=== PATIENT | male | born 1945 | race Caucasian/White ===

== ENCOUNTER 2018-02-25 11:27 | Emergency (ER) | payer MEDICARE, BC, SELFPAY ==
[2018-02-25 11:27] VITALS: BP 147/89; PULSE 73; RESP 20; TEMP 36.7; O2SAT 94; BMI 31.8
--- NOTE | 2018-02-25 12:01 | ED.VIS.GEN ---
History of Present Illness Chief Complaint: Other, Pain/Inj Informant: Patient Onset: Days - 2-4 Context: Gradual Onset Timing: Continuous Quality: all over Location: sore/achy Current Severity: Moderate Maximum Severity: Moderate Worsened by: movements Relieved by: fentanyl TDP 25mcg Associated Symptoms: none new Narrative: Patient is in pain management, sees Dr. Riggins in [place], [place], states that he lost 1 of his patches because it washed off and shower, and his pain management doctor will not give him any more until he is seen for his next appointment at the end of this week. He was told that he will have to come to the emergency room. He is here looking for some additional fentanyl pain patches, he cut one in half and now that half is running low and his pain is getting worse. - Past Medical History (1) Chronic pain Status: Chronic (2) coronary artery disease Status: Chronic Comment: status post stent in 10/2013, following with Dr. Levine/ (3) diabetes mellitus type II Status: Chronic (4) hypertension Status: Chronic Past Medical History - Allergies and Home Meds Allergies/Adverse Reactions: Allergies adhesive Allergy (Unknown, Verified 02/25/18 11:30) Unknown PER [employer] choline fenofibrate [From Trilipix] Allergy (Unknown, Verified 02/25/18 11:30) Unknown PER [employer] pregabalin [From Lyrica] Allergy (Unknown, Verified 02/25/18 11:30) Unknown PER [employer] Ksreztd-Gap-Kul Reductase Inhibitor Allergy (Unknown, Verified 02/25/18 11:30) Unknown PER [employer] Sulfa (Sulfonamide Antibiotics) Allergy (Verified 02/25/18 11:30) Itching vancomycin Adverse Reaction (Verified 02/25/18 11:30) Itching Home Medications: Home Medications Medication Instructions Recorded Carvedilol [Coreg] 6.25 mg PO BID 06/14/14 Metformin HCl [Glucophage] 1,000 mg PO BIDCM 06/14/14 Pantoprazole Sodium [Protonix] 40 mg PO DAILY 06/14/14 predniSONE tablet 10 mg PO DAILY 06/14/14 traMADol [Ultram (G)] 50 mg PO BID 06/14/14 Insulin Detemir [Levemir (BKC)] 11 units SC QHS 08/30/14 Meloxicam [Mobic] 15 mg PO DAILY 02/25/17 Acetaminophen/Codeine #3 [Tylenol 1 - 2 tab PO QHS #7 tab 10/08/17 #3 Tablet] Albuterol Inhaler [Ventolin Hfa 1 - 2 puff INHALATION Q4H PRN PRN 10/08/17 (SP)] Albuterol Inhaler [Ventolin Hfa] 1 - 2 puff INHALATION Q4H PRN PRN 10/08/17 #1 inhaler Alendronate Sodium [Fosamax] 70 mg PO DAILY 10/08/17 Benazepril HCl [Lotensin] 20 mg PO DAILY 10/08/17 Cholecalciferol (VIT D3) [Vitamin 1,000 unit PO DAILY 10/08/17 D] Furosemide [Lasix] 20 mg PO DAILY 10/08/17 Guaifenesin/Pseudoephedrne HCl 1 ea PO BID #20 tab.er.12h 10/08/17 [Mucinex D ER 1,200-120 mg Tab] Insulin Lispro [Humalog KwikPen] 5 unit SQ BIDCM 10/08/17 Isosorbide Mononitrate [Isosorbide 30 mg PO DAILY 10/08/17 Mononitrate ER] Lactulose [Lactulose] 15 ml PO BID 10/08/17 Naproxen [Naprosyn] 500 mg PO BID PRN #20 tab 10/08/17 Oseltamivir Phosphate [Tamiflu] 75 mg PO BID #10 cap 10/08/17 Vit A/Vit C/Vit E/Zinc/Copper 1 each PO BID 10/08/17 [Preservision Areds Softgel] fentaNYL patch [Duragesic] 25 mcg TRANSDERM. Q72H 10/08/17 Primary Care Physician: Boom Aviles [Primary Care Provider] - Surgical History: - - rotator cuff repair, hernia repair Smoking Status: Former smoker Drugs: None - Family History Maternal Family History: Reports: No pertinent history Review of Systems All systems negative except as indicated Musculoskeletal: Reports: Myalgias Physical Exam Vital Signs/Narrative: Vital Signs Temp Pulse Resp BP Pulse Ox 02/25/18 11:27 98.0 F 73 20 H 147/89 H 94 General: Well nourished, Well developed Head: Normocephalic, Atraumatic Eyes: Perrl, EOMI ENT: Moist mucous membranes, No rhinorrhea Cardiovascular: Regular rate, Regular rhythm, No murmurs Respiratory: No distress, CTA bilaterally, Chest nontender Skin: Normal color, No rash Neurological: Alert, Oriented x3, Cranial nerves II-XII grossly intact, Normal Strength, Normal Sensation Psychological: Normal affect Diagnostic/Tx/Re-eval - Medical Decision Making Patient agrees that if I am able to get him a single fentanyl patch here in the ER, he thinks that would get him till the weekend to see his doctor. Patient is reasonable. Oars report checked. Nothing concerning other than what he is telling me. We will get him a patch. His old half patch is removed. ED Disposition - Plan for ED Patient: Disposition: Home or Assisted Living Chief Complaint: Other, Pain/Inj Diagnosis: Chronic pain Instructions: Medication for Pain Referrals: Boom Aviles [Primary Care Provider] - doctor, pain [Other] (as scheduled on Sunday)
--- NOTE | 2018-02-25 12:07 | ED.DCSUM_ITS ---
History of Present Illness Chief Complaint: Other, Pain/Inj Informant: Patient Onset: Days - 2-4 Context: Gradual Onset Timing: Continuous Quality: all over Location: sore/achy Current Severity: Moderate Maximum Severity: Moderate Worsened by: movements Relieved by: fentanyl TDP 25mcg Associated Symptoms: none new Narrative: Patient is in pain management, sees Dr. Riggins in [place], [place], states that he lost 1 of his patches because it washed off and shower, and his pain management doctor will not give him any more until he is seen for his next appointment at the end of this week. He was told that he will have to come to the emergency room. He is here looking for some additional fentanyl pain patches, he cut one in half and now that half is running low and his pain is getting worse. - Past Medical History (1) Chronic pain Status: Chronic (2) coronary artery disease Status: Chronic Comment: status post stent in 10/2013, following with Dr. Levine / (3) diabetes mellitus type II Status: Chronic (4) hypertension Status: Chronic Past Medical History - Allergies and Home Meds Allergies/Adverse Reactions: Allergies adhesive Allergy (Unknown, Verified 02/25/18 11:30) Unknown PER [employer] choline fenofibrate [From Trilipix] Allergy (Unknown, Verified 02/25/18 11:30) Unknown PER [employer] pregabalin [From Lyrica] Allergy (Unknown, Verified 02/25/18 11:30) Unknown PER [employer] Npmsigg-Eqs-Wfu Reductase Inhibitor Allergy (Unknown, Verified 02/25/18 11:30) Unknown PER [employer] Sulfa (Sulfonamide Antibiotics) Allergy (Verified 02/25/18 11:30) Itching vancomycin Adverse Reaction (Verified 02/25/18 11:30) Itching Home Medications: Home Medications Medication Instructions Recorded Carvedilol [Coreg] 6.25 mg PO BID 06/14/14 Metformin HCl [Glucophage] 1,000 mg PO BIDCM 06/14/14 Pantoprazole Sodium [Protonix] 40 mg PO DAILY 06/14/14 predniSONE tablet 10 mg PO DAILY 06/14/14 traMADol [Ultram (G)] 50 mg PO BID 06/14/14 Insulin Detemir [Levemir (BKC)] 11 units SC QHS 08/30/14 Meloxicam [Mobic] 15 mg PO DAILY 02/25/17 Acetaminophen/Codeine #3 [Tylenol 1 - 2 tab PO QHS #7 tab 10/08/17 #3 Tablet] Albuterol Inhaler [Ventolin Hfa 1 - 2 puff INHALATION Q4H PRN PRN 10/08/17 (SP)] Albuterol Inhaler [Ventolin Hfa] 1 - 2 puff INHALATION Q4H PRN PRN 10/08/17 #1 inhaler Alendronate Sodium [Fosamax] 70 mg PO DAILY 10/08/17 Benazepril HCl [Lotensin] 20 mg PO DAILY 10/08/17 Cholecalciferol (VIT D3) [Vitamin 1,000 unit PO DAILY 10/08/17 D] Furosemide [Lasix] 20 mg PO DAILY 10/08/17 Guaifenesin/Pseudoephedrne HCl 1 ea PO BID #20 tab.er.12h 10/08/17 [Mucinex D ER 1,200-120 mg Tab] Insulin Lispro [Humalog KwikPen] 5 unit SQ BIDCM 10/08/17 Isosorbide Mononitrate [Isosorbide 30 mg PO DAILY 10/08/17 Mononitrate ER] Lactulose [Lactulose] 15 ml PO BID 10/08/17 Naproxen [Naprosyn] 500 mg PO BID PRN #20 tab 10/08/17 Oseltamivir Phosphate [Tamiflu] 75 mg PO BID #10 cap 10/08/17 Vit A/Vit C/Vit E/Zinc/Copper 1 each PO BID 10/08/17 [Preservision Areds Softgel] fentaNYL patch [Duragesic] 25 mcg TRANSDERM. Q72H 10/08/17 Primary Care Physician: Boom Aviles [Primary Care Provider] - Surgical History: - - rotator cuff repair, hernia repair Smoking Status: Former smoker Drugs: None - Family History Maternal Family History: Reports: No pertinent history Review of Systems All systems negative except as indicated Musculoskeletal: Reports: Myalgias Physical Exam Vital Signs/Narrative: Vital Signs Temp Pulse Resp BP Pulse Ox 02/25/18 11:27 98.0 F 73 20 H 147/89 H 94 General: Well nourished, Well developed Head: Normocephalic, Atraumatic Eyes: Perrl, EOMI ENT: Moist mucous membranes, No rhinorrhea Cardiovascular: Regular rate, Regular rhythm, No murmurs Respiratory: No distress, CTA bilaterally, Chest nontender Skin: Normal color, No rash Neurological: Alert, Oriented x3, Cranial nerves II-XII grossly intact, Normal Strength, Normal Sensation Psychological: Normal affect Diagnostic/Tx/Re-eval - Medical Decision Making Patient agrees that if I am able to get him a single fentanyl patch here in the ER, he thinks that would get him till the weekend to see his doctor. Patient is reasonable. Oars report checked. Nothing concerning other than what he is telling me. We will get him a patch. His old half patch is removed. ED Disposition - Plan for ED Patient: Disposition: Home or Assisted Living Chief Complaint: Other, Pain/Inj Diagnosis: Chronic pain Instructions: Medication for Pain Referrals: Boom Aviles [Primary Care Provider] - doctor, pain [Other] (as scheduled on Sunday)
[2018-02-25] MEDS: fentaNYL 25 MCG Patch TRANSDERM. (12:48)
[2018-02-25 12:54] VITALS: BP 145/67; PULSE 81; RESP 18; O2SAT 96
== END 2018-02-25 12:55 | disposition home or self-care (01) ==
LOC: ED 12:22
PROVIDERS: Emergency Provider Emergency Medicine; Family Provider Family Medicine; PCP Family Medicine
DX: G89.29 Other chronic pain (principal); I25.10 Atherosclerotic heart disease of native coronary artery without angina pectoris; E11.9 Type 2 diabetes mellitus without complications; I10 Essential (primary) hypertension; Z95.5 Presence of coronary angioplasty implant and graft; Z79.4 Long term (current) use of insulin; Z79.51 Long term (current) use of inhaled steroids; Z79.52 Long term (current) use of systemic steroids; Z79.891 Long term (current) use of opiate analgesic; Z79.899 Other long term (current) drug therapy; Z87.891 Personal history of nicotine dependence
CPT/HCPCS: 99283

== ENCOUNTER 2018-02-27 08:07 | Observation (INO) | payer MEDICARE, BC, SELFPAY ==
[2018-02-27] VITALS (13 sets, daily range): BP systolic 136–164; BP diastolic 69–95; PULSE 65–86; RESP 12–21; TEMP 36.3–37.1; O2SAT 93–98; BMI 31.2; BMI 31.6
--- NOTE | 2018-02-27 08:23 | NURSING ---
NO LW OR POA
--- NOTE | 2018-02-27 08:24 | EKG12_ITS ---
Test Reason : CP Blood Pressure : / mmHG Vent. Rate : 067 BPM Atrial Rate : 067 BPM P-R Int : 178 ms QRS Dur : 084 ms QT Int : 368 ms P-R-T Axes : 038 -52 070 degrees QTc Int : 388 ms Normal sinus rhythm Left anterior fascicular block Inferior infarct , age undetermined T wave abnormality, consider lateral ischemia Abnormal ECG Confirmed by ELIZ VILLAGRAN MD ([id number]), staff editor BRAXTON COLLIER ([id number]) on 03/01/2018 2:06:10 PM Referred By: CHASE Confirmed By:ELIZ VILLAGRAN MD
--- NOTE | 2018-02-27 08:27 | ED.VIS.GEN ---
History of Present Illness Chief Complaint: Chest Pain Informant: Patient Onset: Yesterday Context: Gradual Onset Timing: Intermittent Quality: heaviness Location: substernal Current Severity: Mild Maximum Severity: Moderate Worsened by: lying flat Relieved by: sitting or standing Associated Symptoms: sob/orthopnea, diaphoretic last night, exac of pain all over (mostly exts) Narrative: Patient was here 2 days ago, seen by myself because of worsening chronic pain and no other complaints, he was given fentanyl transdermal patch, he states he has been wearing it, but his diffuse myalgias seem to be worsening. He states he did not have these problems when he was here 2 days ago, but last night he developed orthopnea, diaphoresis, chest pressure, symptoms have persisted until today. They are better when he stands up or sits up. He states that the trouble breathing and chest discomfort are intermittent for a long time, and he cannot quantify how long exactly it is been going on for total, how often he gets it, or how long the episodes last. He can tell me that he does not get episodes daily. He states that the symptoms he has had since last night are unusual. He takes a water pill, he does not know why except for swelling in his legs. He is on Eliquis and he does not know why, but then he mentions that he was admitted to [facility] for rapid atrial fibrillation at one time. Says he lives in [place] and sees a Dr. Levine for cardiology. Has not seen him in the past 6 months. - Past Medical History (1) Chronic pain Status: Chronic (2) coronary artery disease Status: Chronic Comment: status post stent in 10/2013, following with Dr. Levine/ (3) diabetes mellitus type II Status: Chronic (4) hypertension Status: Chronic (5) Paroxysmal atrial fibrillation Status: Chronic Past Medical History - Allergies and Home Meds Allergies/Adverse Reactions: Allergies adhesive Allergy (Unknown, Verified 02/27/18 08:12) Unknown PER [employer] choline fenofibrate [From Trilipix] Allergy (Unknown, Verified 02/27/18 08:12) Unknown PER [employer] pregabalin [From Lyrica] Allergy (Unknown, Verified 02/27/18 08:12) Unknown PER [employer] Ezfxosc-Fkd-Mes Reductase Inhibitor Allergy (Unknown, Verified 02/27/18 08:12) Unknown PER [employer] Sulfa (Sulfonamide Antibiotics) Allergy (Verified 02/27/18 08:12) Itching vancomycin Allergy (Verified 02/27/18 08:12) Itching Home Medications: Home Medications Medication Instructions Recorded Carvedilol [Coreg] 6.25 mg PO BID 06/14/14 Pantoprazole Sodium [Protonix] 40 mg PO DAILY 06/14/14 predniSONE tablet 10 mg PO DAILY 06/14/14 traMADol [Ultram (G)] 50 mg PO Q6H PRN PRN 06/14/14 Insulin Detemir [Levemir (BKC)] 6 units SC QHS 08/30/14 Albuterol Inhaler [Ventolin Hfa] 1 - 2 puff INHALATION Q4H PRN PRN 10/08/17 #1 inhaler Alendronate Sodium [Fosamax] 70 mg PO QODAY 10/08/17 Benazepril HCl [Lotensin] 20 mg PO DAILY 10/08/17 Cholecalciferol (VIT D3) [Vitamin 1,000 unit PO DAILY 10/08/17 D] Furosemide [Lasix] 20 mg PO DAILY 10/08/17 Insulin Lispro [Humalog KwikPen] 5 unit SQ BIDCM 10/08/17 Isosorbide Mononitrate [Isosorbide 30 mg PO DAILY 10/08/17 Mononitrate ER] Lactulose [Lactulose] 15 ml PO BID 10/08/17 Vit A/Vit C/Vit E/Zinc/Copper 1 each PO BID 10/08/17 [Preservision Areds Softgel] fentaNYL patch [Duragesic] 25 mcg TRANSDERM. Q72H 10/08/17 Apixaban [Eliquis] 5 mg PO BID 02/25/18 Surgical History: - - rotator cuff repair, hernia repair Lives: Alone Smoking Status: Former smoker Drugs: None - Family History Maternal Family History: Reports: No pertinent history Review of Systems General: Reports: Malaise, Sweats. Denies: Fever Eyes: Denies: Visual changes - bilaterally, Diplopia ENT: Denies: Bilateral ear pain, Rhinorrhea, Sore throat Cardiovascular: Reports: Chest pain. Denies: Palpitations, Heart racing Respiratory: Reports: Dyspnea, Orthopnea, Paroxysmal nocturnal dyspnea. Denies: Cough, Dyspnea on exertion Gastrointestinal: Reports: Abdominal pain - chronic, no changes, Hematochezia - off and on. Denies: Nausea, Vomiting, Diarrhea, Melena Genitourinary: Denies: Dysuria, Hematuria Musculoskeletal: Reports: Myalgias. Denies: Arthralgias, Neck pain, Back pain Skin: Denies: Rash, Abscess Neurological: Denies: Headache, Weakness, Parasthesia Psych: Denies: Depression, Anxiety, Suicidal thoughts Endocrine: Denies: Polyuria, Polydipsia Hematologic: Reports: Easy bruising, Easy bleeding Allergy: Denies: Swelling of the mouth, Swelling of the tongue Physical Exam Vital Signs/Narrative: Vital Signs Temp Pulse Resp BP Pulse Ox 02/27/18 08:08 97.3 F L 71 12 141/81 H 94 General: Well nourished, Well developed, Obese - trunkal Head: Normocephalic, Atraumatic Eyes: Perrl, EOMI ENT: Moist mucous membranes, No rhinorrhea Neck: Supple, Nontender, No JVD Cardiovascular: Regular rate, Regular rhythm, Murmur - 3/6 systolic. Negative for: Tachycardia Respiratory: No distress, CTA bilaterally - diffusely diminished, symmetrically, Chest nontender Abdomen: Soft, Nontender, Nondistended, Normal bowel sounds Back: Nontender, Normal Inspection Extremities: Nontender, No edema Skin: Normal color, No rash Neurological: Alert, Oriented x3, Cranial nerves II-XII grossly intact, Normal Strength, Normal Sensation, Normal Gait Psychological: Normal affect Diagnostic/Tx/Re-eval Impressions Chest X-Ray 02/27/18 08:54 IMPRESSION: No acute abnormality is seen. Electronically Signed: Raghav Mark MD at 9:23 EDT Tel [phone], Service support , 02/27/18 08:54 Chest PA and Lateral [RAD] Stat Laboratory Results 02/27/18 02/27/18 02/27/18 Range/Units 08:35 08:35 08:35 WBC 12.1 H (4.4-11.0) K/mm3 RBC 4.47 L (4.6-6.2) M/mm3 Hgb 13.0 (13.0-16.5) g/dl Hct 38.5 L (40-54) % MCV 86.1 (80-94) fL MCH 29.1 (27.0-32.0) pg MCHC 33.8 (32-36) g/gl RDW 13.9 (11.6-14.6) % RDW Differential 42.9 (35.1-43.9) fl Plt Count 235 (150-450) K/mm3 MPV 8.9 (6.2-12.0) fl Immature Gran % (Auto) 1.200 H (0.0-0.9) % Neut % (Auto) 79.0 H (47-70) % Lymph % (Auto) 10.1 L (19-41) % [place] % (Auto) 8.3 (0-10) % Eos % (Auto) 1.2 (0-5) % Baso % (Auto) 0.2 (0-1) % Absolute Neuts (auto) 9.5 H (2.0-7.7) X10^3/uL Absolute Lymphs (auto) 1.22 (0.83-4.51) X10^3/ul Total Counted Not Reportable Sodium 141 (136-145) mmol/L Potassium 4.2 (3.5-5.1) mmol/L Chloride 106 (98-107) mmol/L Carbon Dioxide 26.0 (21.0-32.0) mmol/L Anion Gap 9 (5-15) BUN 25 H (7-18) mg/dL Creatinine 1.33 H (0.70-1.30) mg/dL Estim Creat Clear Calc 40.41 ml/min Est GFR (MDRD) Af Amer 68 (>60) mL/min Est GFR (MDRD) Non-Af 56 L (>60) mL/min BUN/Creatinine Ratio 18.8 (10-20) RATIO Glucose 256 H (74-106) mg/dL Calcium 8.8 (8.5-10.1) mg/dL Troponin I < 0.015 (<0.045) ng/mL B-Natriuretic Peptide 68.6 (0-100) pg/mL - Rhythm Strip Rhythm Strip: Sinus Rhythm Rate: 65 Ectopy: None - EKG 1 Interpretation: Sinus Rhythm, No Acute Injury Pattern, LAFB, Non-Specific ST Changes - laterally w/ some T-wave inversions V4-6 Prior: Changed - T-wave inversions new c/w 09/2017; LAFB not new - Medical Decision Making Sitting at rest, patient's symptoms gradually resolved without the need for nitroglycerin. Aspirin was held since he is anticoagulated. Since he does not take aspirin daily, only because he is anticoagulated I assume, his MARGARET risk score is 2. It would be 3 if he was taking aspirin daily. He does not recall his last stress test, there is none available in the system. Has a hx of a coronary stent; his current coronary status is unknown. Plan is for admission for further evaluation. ED Disposition - Plan for ED Patient: Disposition: Acute Care Hospital [facility] Chief Complaint: Chest Pain Diagnosis: Chest pain
--- NOTE | 2018-02-27 08:37 | ED.DCSUM_ITS ---
History of Present Illness Chief Complaint: Chest Pain Informant: Patient Onset: Yesterday Context: Gradual Onset Timing: Intermittent Quality: heaviness Location: substernal Current Severity: Mild Maximum Severity: Moderate Worsened by: lying flat Relieved by: sitting or standing Associated Symptoms: sob/orthopnea, diaphoretic last night, exac of pain all over (mostly exts) Narrative: Patient was here 2 days ago, seen by myself because of worsening chronic pain and no other complaints, he was given fentanyl transdermal patch, he states he has been wearing it, but his diffuse myalgias seem to be worsening. He states he did not have these problems when he was here 2 days ago, but last night he developed orthopnea, diaphoresis, chest pressure, symptoms have persisted until today. They are better when he stands up or sits up. He states that the trouble breathing and chest discomfort are intermittent for a long time, and he cannot quantify how long exactly it is been going on for total, how often he gets it, or how long the episodes last. He can tell me that he does not get episodes daily. He states that the symptoms he has had since last night are unusual. He takes a water pill, he does not know why except for swelling in his legs. He is on Eliquis and he does not know why, but then he mentions that he was admitted to [facility] for rapid atrial fibrillation at one time. Says he lives in [place] and sees a Dr. Levine for cardiology. Has not seen him in the past 6 months. - Past Medical History (1) Chronic pain Status: Chronic (2) coronary artery disease Status: Chronic Comment: status post stent in 10/2013, following with Dr. Levine / (3) diabetes mellitus type II Status: Chronic (4) hypertension Status: Chronic (5) Paroxysmal atrial fibrillation Status: Chronic Past Medical History - Allergies and Home Meds Allergies/Adverse Reactions: Allergies adhesive Allergy (Unknown, Verified 02/27/18 08:12) Unknown [facility] choline fenofibrate [From Trilipix] Allergy (Unknown, Verified 02/27/18 08:12) Unknown [facility] pregabalin [From Lyrica] Allergy (Unknown, Verified 02/27/18 08:12) Unknown [facility] Frtkano-Tkd-Suv Reductase Inhibitor Allergy (Unknown, Verified 02/27/18 08:12) Unknown [facility] Sulfa (Sulfonamide Antibiotics) Allergy (Verified 02/27/18 08:12) Itching vancomycin Allergy (Verified 02/27/18 08:12) Itching Home Medications: Home Medications Medication Instructions Recorded Carvedilol [Coreg] 6.25 mg PO BID 06/14/14 Pantoprazole Sodium [Protonix] 40 mg PO DAILY 06/14/14 predniSONE tablet 10 mg PO DAILY 06/14/14 traMADol [Ultram (G)] 50 mg PO Q6H PRN PRN 06/14/14 Insulin Detemir [Levemir (BKC)] 6 units SC QHS 08/30/14 Albuterol Inhaler [Ventolin Hfa] 1 - 2 puff INHALATION Q4H PRN PRN 10/08/17 #1 inhaler Alendronate Sodium [Fosamax] 70 mg PO QODAY 10/08/17 Benazepril HCl [Lotensin] 20 mg PO DAILY 10/08/17 Cholecalciferol (VIT D3) [Vitamin 1,000 unit PO DAILY 10/08/17 D] Furosemide [Lasix] 20 mg PO DAILY 10/08/17 Insulin Lispro [Humalog KwikPen] 5 unit SQ BIDCM 10/08/17 Isosorbide Mononitrate [Isosorbide 30 mg PO DAILY 10/08/17 Mononitrate ER] Lactulose [Lactulose] 15 ml PO BID 10/08/17 Vit A/Vit C/Vit E/Zinc/Copper 1 each PO BID 10/08/17 [Preservision Areds Softgel] fentaNYL patch [Duragesic] 25 mcg TRANSDERM. Q72H 10/08/17 Apixaban [Eliquis] 5 mg PO BID 02/25/18 Surgical History: - - rotator cuff repair, hernia repair Lives: Alone Smoking Status: Former smoker Drugs: None - Family History Maternal Family History: Reports: No pertinent history Review of Systems General: Reports: Malaise, Sweats. Denies: Fever Eyes: Denies: Visual changes - bilaterally, Diplopia ENT: Denies: Bilateral ear pain, Rhinorrhea, Sore throat Cardiovascular: Reports: Chest pain. Denies: Palpitations, Heart racing Respiratory: Reports: Dyspnea, Orthopnea, Paroxysmal nocturnal dyspnea. Denies : Cough, Dyspnea on exertion Gastrointestinal: Reports: Abdominal pain - chronic, no changes, Hematochezia - off and on. Denies: Nausea, Vomiting, Diarrhea, Melena Genitourinary: Denies: Dysuria, Hematuria Musculoskeletal: Reports: Myalgias. Denies: Arthralgias, Neck pain, Back pain Skin: Denies: Rash, Abscess Neurological: Denies: Headache, Weakness, Parasthesia Psych: Denies: Depression, Anxiety, Suicidal thoughts Endocrine: Denies: Polyuria, Polydipsia Hematologic: Reports: Easy bruising, Easy bleeding Allergy: Denies: Swelling of the mouth, Swelling of the tongue Physical Exam Vital Signs/Narrative: Vital Signs Temp Pulse Resp BP Pulse Ox 02/27/18 08:08 97.3 F L 71 12 141/81 H 94 General: Well nourished, Well developed, Obese - trunkal Head: Normocephalic, Atraumatic Eyes: Perrl, EOMI ENT: Moist mucous membranes, No rhinorrhea Neck: Supple, Nontender, No JVD Cardiovascular: Regular rate, Regular rhythm, Murmur - 3/6 systolic. Negative for: Tachycardia Respiratory: No distress, CTA bilaterally - diffusely diminished, symmetrically , Chest nontender Abdomen: Soft, Nontender, Nondistended, Normal bowel sounds Back: Nontender, Normal Inspection Extremities: Nontender, No edema Skin: Normal color, No rash Neurological: Alert, Oriented x3, Cranial nerves II-XII grossly intact, Normal Strength, Normal Sensation, Normal Gait Psychological: Normal affect Diagnostic/Tx/Re-eval Impressions Chest X-Ray 02/27/18 08:54 IMPRESSION: No acute abnormality is seen. Electronically Signed: Raghav Mark MD at 9:23 EDT Tel [phone], Service support , 02/27/18 08:54 Chest PA and Lateral [RAD] Stat Laboratory Results 02/27/18 02/27/18 02/27/18 Range/Units 08:35 08:35 08:35 WBC 12.1 H (4.4-11.0) K/mm3 RBC 4.47 L (4.6-6.2) M/mm3 Hgb 13.0 (13.0-16.5) g/dl Hct 38.5 L (40-54) % MCV 86.1 (80-94) fL MCH 29.1 (27.0-32.0) pg MCHC 33.8 (32-36) g/gl RDW 13.9 (11.6-14.6) % RDW Differential 42.9 (35.1-43.9) fl Plt Count 235 (150-450) K/mm3 MPV 8.9 (6.2-12.0) fl Immature Gran % (Auto) 1.200 H (0.0-0.9) % Neut % (Auto) 79.0 H (47-70) % Lymph % (Auto) 10.1 L (19-41) % [place] % (Auto) 8.3 (0-10) % Eos % (Auto) 1.2 (0-5) % Baso % (Auto) 0.2 (0-1) % Absolute Neuts (auto) 9.5 H (2.0-7.7) X10^3/uL Absolute Lymphs (auto) 1.22 (0.83-4.51) X10^3/ul Total Counted Not Reportable Sodium 141 (136-145) mmol/L Potassium 4.2 (3.5-5.1) mmol/L Chloride 106 (98-107) mmol/L Carbon Dioxide 26.0 (21.0-32.0) mmol/L Anion Gap 9 (5-15) BUN 25 H (7-18) mg/dL Creatinine 1.33 H (0.70-1.30) mg/dL Estim Creat Clear Calc 40.41 ml/min Est GFR (MDRD) Af Amer 68 (>60) mL/min Est GFR (MDRD) Non-Af 56 L (>60) mL/min BUN/Creatinine Ratio 18.8 (10-20) RATIO Glucose 256 H (74-106) mg/dL Calcium 8.8 (8.5-10.1) mg/dL Troponin I < 0.015 (<0.045) ng/mL B-Natriuretic Peptide 68.6 (0-100) pg/mL - Rhythm Strip Rhythm Strip: Sinus Rhythm Rate: 65 Ectopy: None - EKG 1 Interpretation: Sinus Rhythm, No Acute Injury Pattern, LAFB, Non-Specific ST Changes - laterally w/ some T-wave inversions V4-6 Prior: Changed - T-wave inversions new c/w 09/2017; LAFB not new - Medical Decision Making Sitting at rest, patient's symptoms gradually resolved without the need for nitroglycerin. Aspirin was held since he is anticoagulated. Since he does not take aspirin daily, only because he is anticoagulated I assume, his MARGARET risk score is 2. It would be 3 if he was taking aspirin daily. He does not recall his last stress test, there is none available in the system. Has a hx of a coronary stent; his current coronary status is unknown. Plan is for admission for further evaluation. ED Disposition - Plan for ED Patient: Disposition: Acute Care [facility] Chief Complaint: Chest Pain Diagnosis: Chest pain
[2018-02-27 08:47] LABS: Absolute Lymphocyte Count 1.22 X10^3/ul (0.83-4.51); Absolute Neutrophil Count 9.5 X10^3/uL (2.0-7.7); Basophil# 0.03 X10^3/uL; Basophil% 0.2 % (0-1); Eosinophil# 0.14 X10^3/uL; Eosinophils% 1.2 % (0-5); Hematocrit 38.5 % (40-54); Lymphocyte # 1.22 X10^3/ul (4.0); Lymphocyte % 10.1 % (19-41); Mean Corp Hgb Conc 33.8 g/gl (32-36); Mean Corpuscular Hgb 29.1 pg (27.0-32.0); Mean Corpuscular Volume 86.1 fL (80-94); Mean Platelet Vol. 8.9 fl (6.2-12.0); Monocyte% 8.3 % (0-10); Neutrophil # 9.52 X10^3/uL (2.7-7.7); Platelet Count 235 K/mm3 (150-450); RBC Distribution Width CV 13.9 % (11.6-14.6); RBC Distribution Width SD 42.9 fl (35.1-43.9); Red Blood Count 4.47 M/mm3 (4.6-6.2); White Blood Count 12.1 K/mm3 (4.4-11.0)
[2018-02-27 08:50] LABS: POSITIVE COUNT NO; POSITIVE DIFFERENTIAL NO; POSITIVE MORPHOLOGY NO
--- NOTE | 2018-02-27 08:54 | RAD_ITS ---
STUDY: X-RAY CHEST REASON FOR EXAM: Male, 72 years old. Chest pain. Shortness of breath. TECHNIQUE: PA and lateral views of the chest. COMPARISON: Comparison is made with prior study dated October 08, 2017. FINDINGS: EKG electrodes are seen. Stable mild increased markings at the left lung base suggestive of left basilar atelectasis. There is no demonstrated pleural abnormality. Normal size heart. Normal mediastinum and gracie. Normal visualized pulmonary arteries. There is atherosclerotic tortuosity of the aortic arch and descending thoracic aorta. There are degenerative changes of the visualized thoracic spine. Fusion of the lower cervical spine. Normal visualized ribs, clavicles, and shoulders. There is no demonstrated abnormality of the visualized soft tissue structures of the upper abdomen. RAD/Chest PA and Lateral IMPRESSION: No acute abnormality is seen. Electronically Signed: Raghav Mark MD at 9:23 EDT Tel [phone], Service support ,
[2018-02-27 09:05] LABS: Anion Gap 9 (5-15); BUN 25 mg/dL (7-18); BUN/Creat Ratio 18.8 RATIO (10-20); Calcium,Total 8.8 mg/dL (8.5-10.1); Chloride 106 mmol/L (98-107); Creatinine, Serum 1.33 mg/dL (0.70-1.30); EST Glomerular Filtration Rate 56 mL/min (>60); Est Glom Filt Rate - Afr Amer 68 mL/min (>60); Estimated Creatinine Clearance 40.41 ml/min; Glucose 256 mg/dL (74-106); Potassium 4.2 mmol/L (3.5-5.1); Sodium Level 141 mmol/L (136-145)
[2018-02-27 09:21] LABS: BNP,B-Type NATRIURETIC PEPTIDE 68.6 pg/mL (0-100)
[2018-02-27] MEDS: Morphine 4 MG/ML Syringe IV (10:34)
--- NOTE | 2018-02-27 10:35 | NURSING ---
PAGED DR ACUÑA'S PAGER ABOUT GETTING A HOSPITALIST TO ADMIT PATIENT.
--- NOTE | 2018-02-27 10:44 | NURSING ---
DR MAJOR FOR DR STONE
[2018-02-27 11:54] LABS: International Normalized Ratio 1.2; Prothrombin Time (Protime)PT. 15.2 SECONDS (11.7-14.9)
--- NOTE | 2018-02-27 12:10 | PCM.HP.STD ---
Problem List (1) Chronic back pain Status: Chronic (2) Chronic pain syndrome Status: Chronic (3) Paroxysmal atrial fibrillation Status: Chronic (4) hypertension Status: Chronic (5) diabetes mellitus type II Status: Chronic (6) coronary artery disease Status: Chronic Comment: status post stent in 10/2013, following with Dr. Levine/ History of Present Illness Date of Admission: 02/27/18 Chief Complaint: Acute on chronic low back pain, intermittent chest pain. The patient is a 72 year old M with past medical history as mentioned above presented to the emergency room because of acute on chronic low back pain as well as intermittent chest pain. His main presenting complaint was low back pain that has been worsening over the last couple of weeks, mid low back pain, dull aching pain, constant, 6-8 out of 10 in severity, not radiating, associated with a chronic tingling on the left lower extremity and without aggravating or relieving factors. He does have chronic back pain and he has been on fentanyl patch as well as tramadol for long time but he ran out of fentanyl patch the last few days. He denied mechanical fall or trauma. 2 days ago, he came to the emergency room with main complaint of low back pain, was evaluated and was given a prescription for fentanyl patch and recommended to follow-up with his pain management doctor. He will not be able to see his pain management doctor until this coming Sunday. Also, he complained of intermittent chest pain that has been going on for couple of months, dull aching pain, retrosternal, described as chest heaviness, not radiating, 4-5 out of 10 in severity, comes and goes, associated with exertional shortness of breath and without aggravating or relieving factors. He denied syncope or presyncope. He denied palpitation, dizziness or lightheadedness. In the emergency department, his vital signs were stable. His routine blood work is remarkable for minimal leukocytosis and creatinine of 1.33. His troponin is negative. EKG revealed normal sinus rhythm with minimal T-wave inversion in V4, V5 and V6 and those are new changes compared to EKG from September,. Chest x-ray showed no acute infiltrate, consolidation or effusion. He is being admitted for atypical chest pain for evaluation as well as acute and chronic low back pain. Past Medical History Past Medical History (Chronic Problems): Chronic Problems Chronic back pain (Chronic) Chronic pain syndrome (Chronic) Chronic pain (Chronic) Paroxysmal atrial fibrillation (Chronic) hypertension (Chronic) diabetes mellitus type II (Chronic) coronary artery disease (Chronic) status post stent in 10/2013, following with Dr. Levine/ Allergies adhesive Allergy (Unknown, Verified 02/27/18 08:12) Unknown PER [facility] choline fenofibrate [From Trilipix] Allergy (Unknown, Verified 02/27/18 08:12) Unknown [facility] pregabalin [From Lyrica] Allergy (Unknown, Verified 02/27/18 08:12) Unknown [facility] Bnassip-Mav-Wck Reductase Inhibitor Allergy (Unknown, Verified 02/27/18 08:12) Unknown [facility] Sulfa (Sulfonamide Antibiotics) Allergy (Verified 02/27/18 08:12) Itching vancomycin Allergy (Verified 02/27/18 08:12) Itching Home Medications: Ambulatory Orders Medication Instructions Recorded Carvedilol [Coreg] 6.25 mg PO BID 06/14/14 Pantoprazole Sodium [Protonix] 40 mg PO DAILY 06/14/14 predniSONE tablet 10 mg PO DAILY 06/14/14 traMADol [Ultram (G)] 50 mg PO Q6H PRN PRN 06/14/14 Insulin Detemir [Levemir (BKC)] 34 units SC QHS 08/30/14 Albuterol Inhaler [Ventolin Hfa] 1 - 2 puff INHALATION Q4H PRN PRN 10/08/17 #1 inhaler Alendronate Sodium [Fosamax] 70 mg PO QWEEK 10/08/17 Benazepril HCl [Lotensin] 20 mg PO DAILY 10/08/17 Cholecalciferol (VIT D3) [Vitamin 1,000 unit PO DAILY 10/08/17 D] Furosemide [Lasix] 20 mg PO DAILY 10/08/17 Insulin Lispro [Humalog KwikPen] 26 unit SQ TIDCM 10/08/17 Isosorbide Mononitrate [Isosorbide 30 mg PO DAILY 10/08/17 Mononitrate ER] Lactulose [Lactulose] 15 ml PO BID 10/08/17 fentaNYL patch [Duragesic] 25 mcg TRANSDERM. Q72H 10/08/17 Apixaban [Eliquis] 5 mg PO BID 02/25/18 Surgical History: herniorrhaphy, - - rotator cuff repair, hernia repair. Lives: Alone Smoking Status: Former smoker Alcohol: None Drugs: None - *Family History Maternal History Items: No pertinent history Review of Systems Constitutional: Denies: Anorexia, Chills, Fever, Weakness Eyes: Denies: Blurred vision, Double vision, Drainage, Redness HEENT: Denies: Difficulty Hearing, Ear Pain, Eye Pain, Nasal Congestion, Sore Throat Cardiovascular: Reports: Chest Pain, Chest Tightness. Denies: Heaviness, Light Headedness, Orthopnea, Paroxysmal Noc. Dyspnea, Syncope Respiratory: Reports: Cough, Shortness of breath upon exertion. Denies: Pleuritic Pain, Sputum production, Wheezing Gastrointestinal: Denies: Abdominal Pain, Constipation, Diarrhea, Nausea, Vomiting Genitourinary: Denies: Dysuria, Frequency, Hematuria Musculoskeletal: Reports: Back Pain, Leg Pain. Denies: Arm Pain, Foot Pain Skin: Denies: Dryness, Rash Neurological: Reports: Tingling. Denies: Balance problems, Double vision, Change in Speech, Slurred speech, Focal weakness, Headaches, Incoordination Psychiatric: Denies: Anxiety, Depression Endocrine: Denies: Change in Body Habitus, Polydipsia VTE Information - Inpt Only VTE Present on Admission: No VTE Mechan Device Prophylaxis: None VTE Pharm Prophylaxis ordered?: No - Physical Exam General: Alert, Oriented x3, Cooperative, No apparent distress HEENT: Atraumatic, PERRLA, EOMI Oral: Moist Mucosa, No Gingival or Mucosal Lesions/ Ulcerations Neck: Supple, No JVD, Negative Carotid Bruits, Trachea Midline, Thyroid Normal Size and Texture Lungs: Clear to auscultation, No rhonchi, No wheeze, No rales, Diminished Cardiovascular: Regular rate, Regular Rhythm, Normal S1, Normal S2, PMI Normal, Murmur - Systolic murmur. Abdomen: Bowel Sounds Present, Soft, Non Tender, Non-Distended, No Hepato-splenomegaly Extremities: No clubbing, No cyanosis, No edema Skin: No rashes, No breakdown Lymphatic: No Cervical, Supraclavicular, or Inguinal Adenopathy Neurological: Cranial nerves II-XII grossly intact, Motor Exam 5/5 strength throughout Psych/Mental Status: Normal Affect, Appropriate, Alert and oriented to time, place, person, mood and affect Vital Signs Temp Pulse Resp BP Pulse Ox 98.2 F 76 16 155/93 H 94 02/27/18 11:33 02/27/18 11:43 02/27/18 11:33 02/27/18 11:33 02/27/18 11:33 Oxygen Delivery Method Room Air Weight: 178 lb 9.191 oz Body Mass Index (BMI) 31.6 Laboratory Tests Past 24 Hrs 02/27/18 11:28 PT 15.2 H INR 1.2 Laboratory Tests 02/27/18 02/27/18 02/27/18 Range/Units 11:53 11:28 08:35 WBC (4.4-11.0) K/mm3 RBC (4.6-6.2) M/mm3 Hgb (13.0-16.5) g/dl Hct (40-54) % MCV (80-94) fL MCH (27.0-32.0) pg MCHC (32-36) g/gl RDW (11.6-14.6) % RDW Differential (35.1-43.9) fl Plt Count (150-450) K/mm3 MPV (6.2-12.0) fl Immature Gran % (Auto) (0.0-0.9) % Neut % (Auto) (47-70) % Lymph % (Auto) (19-41) % [place] % (Auto) (0-10) % Eos % (Auto) (0-5) % Baso % (Auto) (0-1) % Absolute Neuts (auto) (2.0-7.7) X10^3/uL Absolute Lymphs (auto) (0.83-4.51) X10^3/ul Total Counted PT 15.2 H (11.7-14.9) SECONDS INR 1.2 Sodium (136-145) mmol/L Potassium (3.5-5.1) mmol/L Chloride (98-107) mmol/L Carbon Dioxide (21.0-32.0) mmol/L Anion Gap (5-15) BUN (7-18) mg/dL Creatinine (0.70-1.30) mg/dL Estim Creat Clear Calc ml/min Est GFR (MDRD) Af Amer (>60) mL/min Est GFR (MDRD) Non-Af (>60) mL/min BUN/Creatinine Ratio (10-20) RATIO Glucose (74-106) mg/dL Calcium (8.5-10.1) mg/dL Troponin I (<0.045) ng/mL B-Natriuretic Peptide 68.6 (0-100) pg/mL POC Glucose 309 H (70-110) mg/dL 02/27/18 02/27/18 Range/Units 08:35 08:35 WBC 12.1 H (4.4-11.0) K/mm3 RBC 4.47 L (4.6-6.2) M/mm3 Hgb 13.0 (13.0-16.5) g/dl Hct 38.5 L (40-54) % MCV 86.1 (80-94) fL MCH 29.1 (27.0-32.0) pg MCHC 33.8 (32-36) g/gl RDW 13.9 (11.6-14.6) % RDW Differential 42.9 (35.1-43.9) fl Plt Count 235 (150-450) K/mm3 MPV 8.9 (6.2-12.0) fl Immature Gran % (Auto) 1.200 H (0.0-0.9) % Neut % (Auto) 79.0 H (47-70) % Lymph % (Auto) 10.1 L (19-41) % [place] % (Auto) 8.3 (0-10) % Eos % (Auto) 1.2 (0-5) % Baso % (Auto) 0.2 (0-1) % Absolute Neuts (auto) 9.5 H (2.0-7.7) X10^3/uL Absolute Lymphs (auto) 1.22 (0.83-4.51) X10^3/ul Total Counted Not Reportable PT (11.7-14.9) SECONDS INR Sodium 141 (136-145) mmol/L Potassium 4.2 (3.5-5.1) mmol/L Chloride 106 (98-107) mmol/L Carbon Dioxide 26.0 (21.0-32.0) mmol/L Anion Gap 9 (5-15) BUN 25 H (7-18) mg/dL Creatinine 1.33 H (0.70-1.30) mg/dL Estim Creat Clear Calc 40.41 ml/min Est GFR (MDRD) Af Amer 68 (>60) mL/min Est GFR (MDRD) Non-Af 56 L (>60) mL/min BUN/Creatinine Ratio 18.8 (10-20) RATIO Glucose 256 H (74-106) mg/dL Calcium 8.8 (8.5-10.1) mg/dL Troponin I < 0.015 (<0.045) ng/mL B-Natriuretic Peptide (0-100) pg/mL POC Glucose (70-110) mg/dL Clinical Impression(s) from Imaging Studies Chest X-Ray 02/27/18 08:54 IMPRESSION: No acute abnormality is seen. Electronically Signed: Raghav Mark MD at 9:23 EDT Tel [phone], Service support , Assessment/Plan This is a 72 years old male patient presented to the emergency room because of acute on chronic low back pain as well as intermittent chest pain and exertional shortness of breath and is being admitted for evaluation. #1 acute on chronic low back pain: He does have chronic back pain for almost more than 20 years as well as arthritic pain of both legs and chronic tingling of the left lower extremity. He ran out of fentanyl patch few days ago. He denied fall on mechanical trauma. Plan: Admit to PCU for observation, continue fentanyl patch, start OxyIR as needed for pain, continue Toradol as needed, Tylenol as needed, IV fluids, repeat CBC and BMP tomorrow morning, PT OT evaluation and treatment. #2 atypical chest pain: This is intermittent, has been going on for couple of months. It is associated with exertional shortness of breath. He does have history of CAD status post stents. He is not sure when it was his last stress test. EKG revealed T-wave inversion in leads V4, V5 and V6. This is new compared to previous EKG from September,. Chest x-ray showed no acute findings. Plan: Cardiac monitoring, serial cardiac enzymes, repeat EKG tomorrow morning, nitroglycerin sublingual as needed, nuclear stress test tomorrow morning if cardiac enzymes are negative. #3 CAD status post stents: Plan as above, continue Coreg, isosorbide mononitrate and lisinopril. #4 chronic back pain/chronic pain syndrome: Continue prednisone, tramadol, continue fentanyl patch, start OxyIR as needed for pain. #5 paroxysmal A. fib: At this time, his sinus rhythm, continue Coreg for rate control and Eliquis for anti-cognition. #6 type 2 diabetes mellitus: ADA diet, Accu-Cheks, insulin sliding scale, continue home doses of Humalog and Levemir. #7 hypertension: Blood pressure stable, continue home medications. #8 DVT prophylaxis: Continue Eliquis. This note was generated with webme dictation software. It may contain incorrect words, spelling, and punctuation that were not noted in checking the note before signing. Code Visit OBSV E&M: 40186 Initial observation care L3
[2018-02-27 12:11] LABS: Bedside Glucose 309 mg/dL (70-110)
--- NOTE | 2018-02-27 12:17 | HP.PCM_ITS ---
Problem List (1) Chronic back pain Status: Chronic (2) Chronic pain syndrome Status: Chronic (3) Paroxysmal atrial fibrillation Status: Chronic (4) hypertension Status: Chronic (5) diabetes mellitus type II Status: Chronic (6) coronary artery disease Status: Chronic Comment: status post stent in 10/2013, following with Dr. Levine / History of Present Illness Date of Admission: 02/27/18 Chief Complaint: Acute on chronic low back pain, intermittent chest pain. The patient is a 72 year old M with past medical history as mentioned above presented to the emergency room because of acute on chronic low back pain as well as intermittent chest pain. His main presenting complaint was low back pain that has been worsening over the last couple of weeks, mid low back pain, dull aching pain, constant, 6-8 out of 10 in severity, not radiating, associated with a chronic tingling on the left lower extremity and without aggravating or relieving factors. He does have chronic back pain and he has been on fentanyl patch as well as tramadol for long time but he ran out of fentanyl patch the last few days. He denied mechanical fall or trauma. 2 days ago, he came to the emergency room with main complaint of low back pain, was evaluated and was given a prescription for fentanyl patch and recommended to follow-up with his pain management doctor. He will not be able to see his pain management doctor until this coming Sunday. Also, he complained of intermittent chest pain that has been going on for couple of months, dull aching pain, retrosternal, described as chest heaviness, not radiating, 4-5 out of 10 in severity, comes and goes, associated with exertional shortness of breath and without aggravating or relieving factors. He denied syncope or presyncope. He denied palpitation, dizziness or lightheadedness. In the emergency department, his vital signs were stable. His routine blood work is remarkable for minimal leukocytosis and creatinine of 1.33. His troponin is negative. EKG revealed normal sinus rhythm with minimal T-wave inversion in V4 , V5 and V6 and those are new changes compared to EKG from September,. Chest x-ray showed no acute infiltrate, consolidation or effusion. He is being admitted for atypical chest pain for evaluation as well as acute and chronic low back pain. Past Medical History Past Medical History (Chronic Problems): Chronic Problems Chronic back pain (Chronic) Chronic pain syndrome (Chronic) Chronic pain (Chronic) Paroxysmal atrial fibrillation (Chronic) hypertension (Chronic) diabetes mellitus type II (Chronic) coronary artery disease (Chronic) status post stent in 10/2013, following with Dr. Levine/ Allergies adhesive Allergy (Unknown, Verified 02/27/18 08:12) Unknown [facility] choline fenofibrate [From Trilipix] Allergy (Unknown, Verified 02/27/18 08:12) Unknown [facility] pregabalin [From Lyrica] Allergy (Unknown, Verified 02/27/18 08:12) Unknown [facility] Rquuakj-Etc-Tmg Reductase Inhibitor Allergy (Unknown, Verified 02/27/18 08:12) Unknown [facility] Sulfa (Sulfonamide Antibiotics) Allergy (Verified 02/27/18 08:12) Itching vancomycin Allergy (Verified 02/27/18 08:12) Itching Home Medications: Ambulatory Orders Medication Instructions Recorded Carvedilol [Coreg] 6.25 mg PO BID 06/14/14 Pantoprazole Sodium [Protonix] 40 mg PO DAILY 06/14/14 predniSONE tablet 10 mg PO DAILY 06/14/14 traMADol [Ultram (G)] 50 mg PO Q6H PRN PRN 06/14/14 Insulin Detemir [Levemir (BKC)] 34 units SC QHS 08/30/14 Albuterol Inhaler [Ventolin Hfa] 1 - 2 puff INHALATION Q4H PRN PRN 10/08/17 #1 inhaler Alendronate Sodium [Fosamax] 70 mg PO QWEEK 10/08/17 Benazepril HCl [Lotensin] 20 mg PO DAILY 10/08/17 Cholecalciferol (VIT D3) [Vitamin 1,000 unit PO DAILY 10/08/17 D] Furosemide [Lasix] 20 mg PO DAILY 10/08/17 Insulin Lispro [Humalog KwikPen] 26 unit SQ TIDCM 10/08/17 Isosorbide Mononitrate [Isosorbide 30 mg PO DAILY 10/08/17 Mononitrate ER] Lactulose [Lactulose] 15 ml PO BID 10/08/17 fentaNYL patch [Duragesic] 25 mcg TRANSDERM. Q72H 10/08/17 Apixaban [Eliquis] 5 mg PO BID 02/25/18 Surgical History: herniorrhaphy, - - rotator cuff repair, hernia repair. Lives: Alone Smoking Status: Former smoker Alcohol: None Drugs: None - *Family History Maternal History Items: No pertinent history Review of Systems Constitutional: Denies: Anorexia, Chills, Fever, Weakness Eyes: Denies: Blurred vision, Double vision, Drainage, Redness HEENT: Denies: Difficulty Hearing, Ear Pain, Eye Pain, Nasal Congestion, Sore Throat Cardiovascular: Reports: Chest Pain, Chest Tightness. Denies: Heaviness, Light Headedness, Orthopnea, Paroxysmal Noc. Dyspnea, Syncope Respiratory: Reports: Cough, Shortness of breath upon exertion. Denies: Pleuritic Pain, Sputum production, Wheezing Gastrointestinal: Denies: Abdominal Pain, Constipation, Diarrhea, Nausea, Vomiting Genitourinary: Denies: Dysuria, Frequency, Hematuria Musculoskeletal: Reports: Back Pain, Leg Pain. Denies: Arm Pain, Foot Pain Skin: Denies: Dryness, Rash Neurological: Reports: Tingling. Denies: Balance problems, Double vision, Change in Speech, Slurred speech, Focal weakness, Headaches, Incoordination Psychiatric: Denies: Anxiety, Depression Endocrine: Denies: Change in Body Habitus, Polydipsia VTE Information - Inpt Only VTE Present on Admission: No VTE Mechan Device Prophylaxis: None VTE Pharm Prophylaxis ordered?: No - Physical Exam General: Alert, Oriented x3, Cooperative, No apparent distress HEENT: Atraumatic, PERRLA, EOMI Oral: Moist Mucosa, No Gingival or Mucosal Lesions/ Ulcerations Neck: Supple, No JVD, Negative Carotid Bruits, Trachea Midline, Thyroid Normal Size and Texture Lungs: Clear to auscultation, No rhonchi, No wheeze, No rales, Diminished Cardiovascular: Regular rate, Regular Rhythm, Normal S1, Normal S2, PMI Normal, Murmur - Systolic murmur. Abdomen: Bowel Sounds Present, Soft, Non Tender, Non-Distended, No Hepato- splenomegaly Extremities: No clubbing, No cyanosis, No edema Skin: No rashes, No breakdown Lymphatic: No Cervical, Supraclavicular, or Inguinal Adenopathy Neurological: Cranial nerves II-XII grossly intact, Motor Exam 5/5 strength throughout Psych/Mental Status: Normal Affect, Appropriate, Alert and oriented to time, place, person, mood and affect Vital Signs Temp Pulse Resp BP Pulse Ox 98.2 F 76 16 155/93 H 94 02/27/18 11:33 02/27/18 11:43 02/27/18 11:33 02/27/18 11:33 02/27/18 11:33 Oxygen Delivery Method Room Air Weight: 178 lb 9.191 oz Body Mass Index (BMI) 31.6 Laboratory Tests Past 24 Hrs 02/27/18 11:28 PT 15.2 H INR 1.2 Laboratory Tests 3 02/27/18 02/27/18 02/27/18 Range/Units 11:53 11:28 08:35 WBC (4.4-11.0) K/mm3 RBC (4.6-6.2) M/mm3 Hgb (13.0-16.5) g/dl Hct (40-54) % MCV (80-94) fL MCH (27.0-32.0) pg MCHC (32-36) g/gl RDW (11.6-14.6) % RDW Differential (35.1-43.9) fl Plt Count (150-450) K/mm3 MPV (6.2-12.0) fl Immature Gran % (Auto) (0.0-0.9) % Neut % (Auto) (47-70) % Lymph % (Auto) (19-41) % Graham % (Auto) (0-10) % Eos % (Auto) (0-5) % Baso % (Auto) (0-1) % Absolute Neuts (auto) (2.0-7.7) X10^3/uL Absolute Lymphs (auto) (0.83-4.51) X10^3/ul Total Counted PT 15.2 H (11.7-14.9) SECONDS INR 1.2 Sodium (136-145) mmol/L Potassium (3.5-5.1) mmol/L Chloride (98-107) mmol/L Carbon Dioxide (21.0-32.0) mmol/L Anion Gap (5-15) BUN (7-18) mg/dL Creatinine (0.70-1.30) mg/dL Estim Creat Clear Calc ml/min Est GFR (MDRD) Af Amer (>60) mL/min Est GFR (MDRD) Non-Af (>60) mL/min BUN/Creatinine Ratio (10-20) RATIO Glucose (74-106) mg/dL Calcium (8.5-10.1) mg/dL Troponin I (<0.045) ng/mL B-Natriuretic Peptide 68.6 (0-100) pg/mL POC Glucose 309 H (70-110) mg/dL 3 02/27/18 02/27/18 Range/Units 08:35 08:35 WBC 12.1 H (4.4-11.0) K/mm3 RBC 4.47 L (4.6-6.2) M/mm3 Hgb 13.0 (13.0-16.5) g/dl Hct 38.5 L (40-54) % MCV 86.1 (80-94) fL MCH 29.1 (27.0-32.0) pg MCHC 33.8 (32-36) g/gl RDW 13.9 (11.6-14.6) % RDW Differential 42.9 (35.1-43.9) fl Plt Count 235 (150-450) K/mm3 MPV 8.9 (6.2-12.0) fl Immature Gran % (Auto) 1.200 H (0.0-0.9) % Neut % (Auto) 79.0 H (47-70) % Lymph % (Auto) 10.1 L (19-41) % Graham % (Auto) 8.3 (0-10) % Eos % (Auto) 1.2 (0-5) % Baso % (Auto) 0.2 (0-1) % Absolute Neuts (auto) 9.5 H (2.0-7.7) X10^3/uL Absolute Lymphs (auto) 1.22 (0.83-4.51) X10^3/ul Total Counted Not Reportable PT (11.7-14.9) SECONDS INR Sodium 141 (136-145) mmol/L Potassium 4.2 (3.5-5.1) mmol/L Chloride 106 (98-107) mmol/L Carbon Dioxide 26.0 (21.0-32.0) mmol/L Anion Gap 9 (5-15) BUN 25 H (7-18) mg/dL Creatinine 1.33 H (0.70-1.30) mg/dL Estim Creat Clear Calc 40.41 ml/min Est GFR (MDRD) Af Amer 68 (>60) mL/min Est GFR (MDRD) Non-Af 56 L (>60) mL/min BUN/Creatinine Ratio 18.8 (10-20) RATIO Glucose 256 H (74-106) mg/dL Calcium 8.8 (8.5-10.1) mg/dL Troponin I < 0.015 (<0.045) ng/mL B-Natriuretic Peptide (0-100) pg/mL POC Glucose (70-110) mg/dL Clinical Impression(s) from Imaging Studies Chest X-Ray 02/27/18 08:54 IMPRESSION: No acute abnormality is seen. Electronically Signed: Raghav Mark MD at 9:23 EDT Tel [phone], Service support , Assessment/Plan This is a 72 years old male patient presented to the emergency room because of acute on chronic low back pain as well as intermittent chest pain and exertional shortness of breath and is being admitted for evaluation. #1 acute on chronic low back pain: He does have chronic back pain for almost more than 20 years as well as arthritic pain of both legs and chronic tingling of the left lower extremity. He ran out of fentanyl patch few days ago. He denied fall on mechanical trauma. Plan: Admit to PCU for observation, continue fentanyl patch, start OxyIR as needed for pain, continue Toradol as needed, Tylenol as needed, IV fluids, repeat CBC and BMP tomorrow morning, PT OT evaluation and treatment. #2 atypical chest pain: This is intermittent, has been going on for couple of months. It is associated with exertional shortness of breath. He does have history of CAD status post stents. He is not sure when it was his last stress test. EKG revealed T-wave inversion in leads V4, V5 and V6. This is new compared to previous EKG from September,. Chest x-ray showed no acute findings. Plan: Cardiac monitoring, serial cardiac enzymes, repeat EKG tomorrow morning, nitroglycerin sublingual as needed, nuclear stress test tomorrow morning if cardiac enzymes are negative. #3 CAD status post stents: Plan as above, continue Coreg, isosorbide mononitrate and lisinopril. #4 chronic back pain/chronic pain syndrome: Continue prednisone, tramadol, continue fentanyl patch, start OxyIR as needed for pain. #5 paroxysmal A. fib: At this time, his sinus rhythm, continue Coreg for rate control and Eliquis for anti-cognition. #6 type 2 diabetes mellitus: ADA diet, Accu-Cheks, insulin sliding scale, continue home doses of Humalog and Levemir. #7 hypertension: Blood pressure stable, continue home medications. #8 DVT prophylaxis: Continue Eliquis. This note was generated with [employer] dictation software. It may contain incorrect words, spelling, and punctuation that were not noted in checking the note before signing. Code Visit OBSV E&M: 75438 Initial observation care L3
[2018-02-27] MEDS: 0.9% Normal Saline 1,000 ML 75 ML IV (13:15)
[2018-02-27] MEDS: traMADol 50 MG Tablet PO (14:33)
--- NOTE | 2018-02-27 14:34 | EKG12_ITS ---
Test Reason : Blood Pressure : / mmHG Vent. Rate : 085 BPM Atrial Rate : 085 BPM P-R Int : 180 ms QRS Dur : 076 ms QT Int : 376 ms P-R-T Axes : 036 -68 069 degrees QTc Int : 447 ms Normal sinus rhythm Left anterior fascicular block Nonspecific T wave abnormality Abnormal ECG When compared with ECG of 27-FEB-2018 08:13, MANUAL COMPARISON REQUIRED, DATA IS UNCONFIRMED Confirmed by SPARKLE CLEVELAND, ELIZ ([id number]), assistant editor BRAXTON COLLIER ([id number]) on 03/01/2018 3:07:27 PM Referred By: MADAN Confirmed By:ELIZ VILLAGRAN MD
[2018-02-27 16:31] LABS: Bedside Glucose 215 mg/dL (70-110)
[2018-02-27] MEDS: oxyCODONE 5 MG Tablet PO (18:53)
[2018-02-27] MEDS: Carvedilol 6.25 MG Tablet PO (21:15)
[2018-02-27] MEDS: Lactulose 20 GM/30 ML UDC 15 GM PO (21:15)
[2018-02-27] MEDS: Glucerna Shake 120 ML LIQUID PO (21:16)
[2018-02-27] MEDS: APIXABAN 5 MG TABLET PO (21:16)
[2018-02-27 22:56] LABS: Bedside Glucose 68 mg/dL (70-110)
[2018-02-28] MEDS: oxyCODONE 5 MG Tablet PO (02:09)
--- NOTE | 2018-02-28 02:40 | NURSING ---
Handing over care of pt. to Allyson SAEED at this time. Report given. Pt. stable and resting in chair.
[2018-02-28 03:01] VITALS: PULSE 58
[2018-02-28 03:05] VITALS: BP 177/87; PULSE 67; RESP 18; TEMP 36.4; O2SAT 97
[2018-02-28] MEDS: traMADol 50 MG Tablet PO (03:41)
[2018-02-28 05:35] VITALS: BP 166/78; PULSE 61; RESP 18; TEMP 36.6; O2SAT 97
[2018-02-28] MEDS: Lisinopril 20 MG Tablet PO (05:47)
--- NOTE | 2018-02-28 05:55 | EKG12_ITS ---
Test Reason : AM EKG Blood Pressure : / mmHG Vent. Rate : 066 BPM Atrial Rate : 066 BPM P-R Int : 174 ms QRS Dur : 080 ms QT Int : 414 ms P-R-T Axes : 027 -50 058 degrees QTc Int : 434 ms Normal sinus rhythm Left anterior fascicular block Abnormal ECG When compared with ECG of 27-FEB-2018 14:50, MANUAL COMPARISON REQUIRED, DATA IS UNCONFIRMED Confirmed by SPARKLE CLEVELAND, ELIZ ([id number]), photograph editor BRAXTON COLLIER ([id number]) on 03/01/2018 3:06:39 PM Referred By: PEDRITO Confirmed By:ELIZ VILLAGRAN MD
[2018-02-28 06:35] LABS: Bedside Glucose 175 mg/dL (70-110)
[2018-02-28 06:35] LABS: Absolute Lymphocyte Count 1.88 X10^3/ul (0.83-4.51); Absolute Neutrophil Count 5.7 X10^3/uL (2.0-7.7); Basophil# 0.03 X10^3/uL; Basophil% 0.3 % (0-1); Eosinophil# 0.13 X10^3/uL; Eosinophils% 1.4 % (0-5); Hematocrit 38.9 % (40-54); Hemoglobin 12.7 g/dl (13.0-16.5); International Normalized Ratio 1.2; Lymphocyte # 1.88 X10^3/ul (4.0); Lymphocyte % 20.8 % (19-41); Mean Corp Hgb Conc 32.6 g/gl (32-36); Mean Corpuscular Hgb 28.5 pg (27.0-32.0); Mean Corpuscular Volume 87.2 fL (80-94); Monocyte# 1.19 X10^3/uL; Monocyte% 13.1 % (0-10); Neutrophil % 63.1 % (47-70); Platelet Count 226 K/mm3 (150-450); Prothrombin Time (Protime)PT. 14.9 SECONDS (11.7-14.9); RBC Distribution Width CV 14.2 % (11.6-14.6); RBC Distribution Width SD 44.5 fl (35.1-43.9); Red Blood Count 4.46 M/mm3 (4.6-6.2); White Blood Count 9.1 K/mm3 (4.4-11.0)
[2018-02-28 06:37] LABS: Partial Thromboplast Time 60.2 Seconds (24.1-36.2)
[2018-02-28 06:39] LABS: POSITIVE COUNT NO; POSITIVE DIFFERENTIAL NO; POSITIVE MORPHOLOGY NO
[2018-02-28 06:40] LABS: Anion Gap 7 (5-15); BUN 24 mg/dL (7-18); BUN/Creat Ratio 19.4 RATIO (10-20); Calcium,Total 8.7 mg/dL (8.5-10.1); Chloride 107 mmol/L (98-107); Creatinine, Serum 1.24 mg/dL (0.70-1.30); EST Glomerular Filtration Rate 61 mL/min (>60); Est Glom Filt Rate - Afr Amer 74 mL/min (>60); Estimated Creatinine Clearance 43.34 ml/min; Glucose 168 mg/dL (74-106); Potassium 3.9 mmol/L (3.5-5.1); Sodium Level 140 mmol/L (136-145)
[2018-02-28 08:24] VITALS: PULSE 72
--- NOTE | 2018-02-28 09:14 | STRESSREP_ITS ---
Stress Test Report Date: 02/28/2018 Procedure: Pharmacologic stress nuclear imaging study Indications: Chest pain; shortness of breath; CAD; PCI Consent: Per the patient Procedure: The patient did not undergo pharmacologic (Regadenoson) evaluation due to his concerns of not being able to lie supine secondary to his chronic back discomfort and sensation of shortness of breath. The baseline ECG demonstrated normal sinus rhythm; poor R-wave progression; nonspecific ST and T-wave abnormality. There were no cardiac dysrhythmias pretest.. The examination was discontinued status post requiring baseline SPECT Cardiolite nuclear images secondary to the aforementioned concerns. Impression: 1. Pharmacologic (Regadenoson) evaluation: Not performed 2. Slight ECG with normal sinus rhythm with poor R-wave progression with nonspecific ST and T-wave abnormality 3. No cardiac dysrhythmias pretest 4. Pretest resting nuclear images pending Myocardial perfusion imaging study: Technique: The patient was injected with 11.8 millicuries of technetium 99m Cardiolite and subsequently rest SPECT Cardiolite nuclear imaging was obtained in the horizontal long, vertical long, and short axis views. The patient did not undergo pharmacologic (Regadenoson) evaluation secondary to the aforementioned concerns. Subsequently rest SPECT Cardiolite nuclear imaging was obtained in the horizontal long, vertical long, and short axis views. Interpretation: Rest SPECT Cardiolite nuclear imaging status post realignment, normalization, and attenuation correction demonstrate relative uniform tracer uptake and myocardial perfusion appearing within normal limits. Impression: 1. Rest SPECT Cardiolite nuclear imaging demonstrates relative uniform tracer uptake and myocardial perfusion appearing within normal limits. Secondary to the patient not completing the pharmacologic entities Regadenoson) evaluation post stress SPECT Cardiolite nuclear images were not obtained and a gated Cardiolite nuclear study was not obtained. This note was generated with [employer] software. It may contain incorrect words, spelling, and punctuation that were not noted in checking the note before signing.
[2018-02-28] MEDS: fentaNYL 25 MCG Patch TRANSDERM. (10:29)
[2018-02-28] MEDS: predniSONE 10 MG Tablet PO (10:31)
[2018-02-28] MEDS: Lactulose 20 GM/30 ML UDC 15 GM PO (10:31)
[2018-02-28] MEDS: Pantoprazole Sodium 40 MG Tablet PO (10:32)
[2018-02-28] MEDS: Isosorbide Mononitrate 30 MG Tablet PO (10:32)
[2018-02-28] MEDS: APIXABAN 5 MG TABLET PO (10:32)
[2018-02-28] MEDS: Carvedilol 6.25 MG Tablet PO (10:32)
--- NOTE | 2018-02-28 10:38 | PCM.DC ---
- Discharge Diagnoses Current Active Problems: Current Active and Chronic Problems Chronic back pain (Chronic) Chronic pain syndrome (Chronic) Paroxysmal atrial fibrillation (Chronic) You will use the following diet at home:: Calorie/Carbohydrate Controlled (specify 1200, 1400, etc) - 1800 rosemary, Cardiac Your food should be the consistency of: Regular Discharge Activity: Return to Normal Activity Weight Bearing Status: Weight bearing as tolerated Call your doctor if you observe: Fever of 101 or Higher, Shortness of breath, Dizziness, Fainting spells, Chest pain, Increased palpitations (irregular heartbeat), Uncontrolled pain Allergies/Adverse Reactions: Allergies adhesive Allergy (Unknown, Verified 02/27/18 08:12) Unknown PER [facility] choline fenofibrate [From Trilipix] Allergy (Unknown, Verified 02/27/18 08:12) Unknown [facility] pregabalin [From Lyrica] Allergy (Unknown, Verified 02/27/18 08:12) Unknown [facility] Ltqohek-Rtc-Roh Reductase Inhibitor Allergy (Unknown, Verified 02/27/18 08:12) Unknown PER [facility] Sulfa (Sulfonamide Antibiotics) Allergy (Verified 02/27/18 08:12) Itching vancomycin Allergy (Verified 02/27/18 08:12) Itching Medications to take at Discharge Carvedilol [Coreg (Beta Rui)] 6.25 mg PO BID 06/14/14 Pantoprazole Sodium [Protonix] 40 mg PO DAILY 06/14/14 predniSONE tablet 10 mg PO DAILY 06/14/14 traMADol [Ultram] 50 mg PO Q6H PRN PRN 06/14/14 Insulin Detemir [Levemir FlexPen] 34 units SC QHS 08/30/14 Albuterol Inhaler [Ventolin Hfa] 1 - 2 puff INHALATION Q4H PRN PRN #1 inhaler 10/08/17 Alendronate Sodium [Fosamax] 70 mg PO QWEEK 10/08/17 Benazepril HCl [Lotensin] 20 mg PO DAILY 10/08/17 Cholecalciferol (VIT D3) [Vitamin D3] 1,000 unit PO DAILY 10/08/17 Furosemide [Lasix] 20 mg PO DAILY 10/08/17 Insulin Lispro [Humalog KwikPen] 26 unit SQ TIDCM 10/08/17 Isosorbide Mononitrate [Isosorbide Mononitrate ER] 30 mg PO DAILY 10/08/17 Lactulose 15 ml PO BID 10/08/17 Apixaban [Eliquis] 5 mg PO BID 02/25/18 fentaNYL patch [Duragesic patch] 25 mcg TRANSDERM. Q72H 3 Days #1 patch 02/28/18 The following prescriptions were given: fentaNYL patch [Duragesic patch] 25 mcg TRANSDERM. Q72H 3 Days #1 patch Primary Care Physician: Boom Aviles [Primary Care Provider] - Please follow up with your Primary Care Physician in: 1 week.
[2018-02-28 11:39] VITALS: O2SAT 98
[2018-02-28 12:20] LABS: Bedside Glucose 231 mg/dL (70-110)
--- NOTE | 2018-02-28 14:57 | PCM.DC.SUM ---
Discharge Date and Diagnosis Date of Admission: 02/27/18 Date of Discharge: 02/28/18 - Primary Discharge Diagnosis #1 acute on chronic low back pain. #2 atypical chest pain/intermittent, exertional. - Secondary Discharge Diagnosis Chronic Problems Chronic back pain (Chronic) Chronic pain syndrome (Chronic) Chronic pain (Chronic) Paroxysmal atrial fibrillation (Chronic) hypertension (Chronic) diabetes mellitus type II (Chronic) coronary artery disease (Chronic) status post stent in 10/2013, following with Dr. Levine/ Hospital Course and Treatment Imaging Results: Clinical Impression(s) from Imaging Studies Chest X-Ray 02/27/18 08:54 IMPRESSION: No acute abnormality is seen. Electronically Signed: Raghav Mark MD at 9:23 EDT Tel [phone], Service support , Operations: None Procedures: EKG, Stress test Summary of Care Provided: Patient seen and examined and seems to be stable to be discharged home. This morning, he went for stress test and when he asked him to lay flat, he got suffocated, panic and was not able to complete the stress test. He mentioned that his back pain is still there because the fentanyl patch was taken off this morning and was not replaced. His vital signs are stable. - Physical Exam General: Alert, Oriented x3, Cooperative, No apparent distress. HEENT: Atraumatic, PERRLA, EOMI. Neck: Supple, No JVD, Negative Carotid Bruits, Trachea Midline, Thyroid Normal. Lungs: Diminished breath sounds bilateral, otherwise clear, No rhonchi, No wheeze, No rales. Cardiovascular: Regular rate, Regular Rhythm, Normal S1, Normal S2, PMI Normal. Abdomen: Bowel Sounds Present, Soft, Non Tender, Non-Distended, No Hepato-splenomegaly. Extremities: No clubbing, No cyanosis, No edema Skin: No rashes, No breakdown Neurological: Neuro grossly intact Vital Signs are stable. Hospital course: The patient is a 72 year old M presented to the emergency room because of mainly acute on chronic low back pain because he ran out of his fentanyl patch description and he also complains of intermittent chest pain and exertional shortness of breath that has been going on for couple of months. Patient has a history of chronic back pain for more than 20 years and he has been on fentanyl patch as well as pain management as outpatient. He was started back on his fentanyl patch as well as started on OxyIR as needed. His EKG revealed minimal inverted T-wave in leads V4, V5 and V6 and those changes were not present on the previous EKG. His cardiac enzymes were negative ?3. Chest x-ray showed no acute findings. Today, patient went for nuclear stress test and he did the first part but he was not able to finish the nuclear part because he was suffocating and anxious upon laying flat. The part of the stress test that was done reported as negative without evidence of acute stress-induced myocardial ischemia. I offered the patient to give him his pain medication as well as Ativan for anxiety and completed just but he refused. His vital signs were stable. 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 Discharge Activity: Return to Normal Activity Weight Bearing Status: Weight bearing as tolerated Call your doctor if you observe: Fever of 101 or Higher, Shortness of breath, Dizziness, Fainting spells, Chest pain, Increased palpitations (irregular heartbeat), Uncontrolled pain Home Medications: Medications to take at Discharge Carvedilol [Coreg (Beta Rui)] 6.25 mg PO BID 06/14/14 Pantoprazole Sodium [Protonix] 40 mg PO DAILY 06/14/14 predniSONE tablet 10 mg PO DAILY 06/14/14 traMADol [Ultram] 50 mg PO Q6H PRN PRN 06/14/14 Insulin Detemir [Levemir FlexPen] 34 units SC QHS 08/30/14 Albuterol Inhaler [Ventolin Hfa] 1 - 2 puff INHALATION Q4H PRN PRN #1 inhaler 10/08/17 Alendronate Sodium [Fosamax] 70 mg PO QWEEK 10/08/17 Benazepril HCl [Lotensin] 20 mg PO DAILY 10/08/17 Cholecalciferol (VIT D3) [Vitamin D3] 1,000 unit PO DAILY 10/08/17 Furosemide [Lasix] 20 mg PO DAILY 10/08/17 Insulin Lispro [Humalog KwikPen] 26 unit SQ TIDCM 10/08/17 Isosorbide Mononitrate [Isosorbide Mononitrate ER] 30 mg PO DAILY 10/08/17 Lactulose 15 ml PO BID 10/08/17 Apixaban [Eliquis] 5 mg PO BID 02/25/18 Oxycodone [Oxyir] 5 mg PO Q8H PRN PRN #7 tab 02/28/18 fentaNYL patch [Duragesic patch] 25 mcg TRANSDERM. Q72H 3 Days #1 patch 02/28/18 Following Prescrptions Were Given to Patient: Oxycodone [Oxyir] 5 mg PO Q8H PRN PRN #7 tab PRN Reason: Severe Pain (6-10/10) fentaNYL patch [Duragesic patch] 25 mcg TRANSDERM. Q72H 3 Days #1 patch Primary Care Physician: Boom Aviles [Primary Care Provider] - Please follow up with your Primary Care Physician in: 1 week. Disposition: Home Minutes spent on discharge:: 26 Patient Condition:: Stable Medical Necessity - Tobacco Use Smoking Status: Former smoker Meaningful Use Info Meaningful Use Diagnoses (Choose all that apply): None applicable Code Visit OBSV E&M: 27602 Observation care discharge
--- NOTE | 2018-02-28 15:08 | DS.PCM_ITS ---
Discharge Date and Diagnosis Date of Admission: 02/27/18 Date of Discharge: 02/28/18 - Primary Discharge Diagnosis #1 acute on chronic low back pain. #2 atypical chest pain/intermittent, exertional. - Secondary Discharge Diagnosis Chronic Problems Chronic back pain (Chronic) Chronic pain syndrome (Chronic) Chronic pain (Chronic) Paroxysmal atrial fibrillation (Chronic) hypertension (Chronic) diabetes mellitus type II (Chronic) coronary artery disease (Chronic) status post stent in 10/2013, following with Dr. Levine/ Hospital Course and Treatment Imaging Results: Clinical Impression(s) from Imaging Studies Chest X-Ray 02/27/18 08:54 IMPRESSION: No acute abnormality is seen. Electronically Signed: Raghav Mark MD at 9:23 EDT Tel [phone], Service support , Operations: None Procedures: EKG, Stress test Summary of Care Provided: Patient seen and examined and seems to be stable to be discharged home. This morning, he went for stress test and when he asked him to lay flat, he got suffocated, panic and was not able to complete the stress test. He mentioned that his back pain is still there because the fentanyl patch was taken off this morning and was not replaced. His vital signs are stable. - Physical Exam General: Alert, Oriented x3, Cooperative, No apparent distress. HEENT: Atraumatic, PERRLA, EOMI. Neck: Supple, No JVD, Negative Carotid Bruits, Trachea Midline, Thyroid Normal. Lungs: Diminished breath sounds bilateral, otherwise clear, No rhonchi, No wheeze, No rales. Cardiovascular: Regular rate, Regular Rhythm, Normal S1, Normal S2, PMI Normal. Abdomen: Bowel Sounds Present, Soft, Non Tender, Non-Distended, No Hepato- splenomegaly. Extremities: No clubbing, No cyanosis, No edema Skin: No rashes, No breakdown Neurological: Neuro grossly intact Vital Signs are stable. Hospital course: The patient is a 72 year old M presented to the emergency room because of mainly acute on chronic low back pain because he ran out of his fentanyl patch description and he also complains of intermittent chest pain and exertional shortness of breath that has been going on for couple of months. Patient has a history of chronic back pain for more than 20 years and he has been on fentanyl patch as well as pain management as outpatient. He was started back on his fentanyl patch as well as started on OxyIR as needed. His EKG revealed minimal inverted T-wave in leads V4, V5 and V6 and those changes were not present on the previous EKG. His cardiac enzymes were negative ?3. Chest x-ray showed no acute findings. Today, patient went for nuclear stress test and he did the first part but he was not able to finish the nuclear part because he was suffocating and anxious upon laying flat. The part of the stress test that was done reported as negative without evidence of acute stress-induced myocardial ischemia. I offered the patient to give him his pain medication as well as Ativan for anxiety and completed just but he refused. His vital signs were stable. Patient discharged home in a stable medical condition, continued on fentanyl patch, prescription for 1 patch given as he is supposed to see his pain management doctor tomorrow, discharged on OxyIR as needed for pain, continued on his chronic home medication without any changes, recommended to follow-up with his welfare investigator in 1-2 weeks and follow-up with PCP in 1 week. Discharge Activity: Return to Normal Activity Weight Bearing Status: Weight bearing as tolerated Call your doctor if you observe: Fever of 101 or Higher, Shortness of breath, Dizziness, Fainting spells, Chest pain, Increased palpitations (irregular heartbeat), Uncontrolled pain Home Medications: Medications to take at Discharge Carvedilol [Coreg (Beta Rui)] 6.25 mg PO BID 06/14/14 Pantoprazole Sodium [Protonix] 40 mg PO DAILY 06/14/14 predniSONE tablet 10 mg PO DAILY 06/14/14 traMADol [Ultram] 50 mg PO Q6H PRN PRN 06/14/14 Insulin Detemir [Levemir FlexPen] 34 units SC QHS 08/30/14 Albuterol Inhaler [Ventolin Hfa] 1 - 2 puff INHALATION Q4H PRN PRN #1 inhaler Alendronate Sodium [Fosamax] 70 mg PO QWEEK 10/08/17 Benazepril HCl [Lotensin] 20 mg PO DAILY 10/08/17 Cholecalciferol (VIT D3) [Vitamin D3] 1,000 unit PO DAILY 10/08/17 Furosemide [Lasix] 20 mg PO DAILY 10/08/17 Insulin Lispro [Humalog KwikPen] 26 unit SQ TIDCM 10/08/17 Isosorbide Mononitrate [Isosorbide Mononitrate ER] 30 mg PO DAILY 10/08/17 Lactulose 15 ml PO BID 10/08/17 Apixaban [Eliquis] 5 mg PO BID 02/25/18 Oxycodone [Oxyir] 5 mg PO Q8H PRN PRN #7 tab 02/28/18 fentaNYL patch [Duragesic patch] 25 mcg TRANSDERM. Q72H 3 Days #1 patch Following Prescrptions Were Given to Patient: Oxycodone [Oxyir] 5 mg PO Q8H PRN PRN #7 tab PRN Reason: Severe Pain (6-10/10) fentaNYL patch [Duragesic patch] 25 mcg TRANSDERM. Q72H 3 Days #1 patch Primary Care Physician: Boom Aviles [Primary Care Provider] - Please follow up with your Primary Care Physician in: 1 week. Disposition: Home Minutes spent on discharge:: 26 Patient Condition:: Stable Medical Necessity - Tobacco Use Smoking Status: Former smoker Meaningful Use Info Meaningful Use Diagnoses (Choose all that apply): None applicable Code Visit OBSV E&M: 88323 Observation care discharge
== END 2018-02-28 10:39 | disposition home or self-care (01) ==
LOC: ED 09:36 → PCU 10:57
PROVIDERS: Admitting Provider Hospitalist; Emergency Provider Emergency Medicine; Family Provider Family Medicine; PCP Family Medicine; Visit Provider Hospitalist
DX: R07.89 Other chest pain (principal); M54.5 Low back pain; I25.10 Atherosclerotic heart disease of native coronary artery without angina pectoris; I48.0 Paroxysmal atrial fibrillation; I10 Essential (primary) hypertension; E11.9 Type 2 diabetes mellitus without complications; G89.4 Chronic pain syndrome; Z79.899 Other long term (current) drug therapy; Z79.4 Long term (current) use of insulin; Z79.01 Long term (current) use of anticoagulants; Z87.891 Personal history of nicotine dependence; Z95.5 Presence of coronary angioplasty implant and graft; R06.02 Shortness of breath
CPT/HCPCS: 36415; 71046; 78452; 80048; 82962; 83880; 84484; 85025; 85610; 85730; 93005; 93017; 96361; 96374; 97162; 97165; 97802; 99218; 99285; A9500; J7030; A4216; G0378; J2785

== ENCOUNTER 2018-05-05 09:16 | Observation (INO) | payer MEDICARE, BC, SELFPAY ==
[2018-05-05] VITALS (9 sets, daily range): BP systolic 98–150; BP diastolic 70–84; PULSE 64–115; RESP 15–20; TEMP 36.6–37.1; O2SAT 94–98; BMI 33.3; BMI 31.4
[2018-05-05] MEDS: 0.9% Normal Saline 1,000 ML 999 ML IV (09:16)
--- NOTE | 2018-05-05 09:28 | NURSING ---
NO LW OR POA
--- NOTE | 2018-05-05 09:39 | EKG12_ITS ---
Test Reason : Blood Pressure : / mmHG Vent. Rate : 103 BPM Atrial Rate : 144 BPM P-R Int : 000 ms QRS Dur : 072 ms QT Int : 348 ms P-R-T Axes : 000 -51 035 degrees QTc Int : 455 ms Atrial fibrillation Left anterior fascicular block Inferior infarct , age undetermined , cannot be excluded Poor R wave progression Abnormal ECG Confirmed by CECILIA CLEVELAND, BEN ([id number]), newspaper editor managing BRAXTON COLLIER ([id number]) on 05/07/2018 1:05:49 PM Referred By: KRISTIAN Confirmed By:BEN BROOKS MD
--- NOTE | 2018-05-05 09:44 | RAD_ITS ---
STUDY: X-RAY CHEST REASON FOR EXAM: Male, 72 years old. Dyspnea and hemoptysis. TECHNIQUE: PA and lateral views of the chest. COMPARISON: 02/27/2018. FINDINGS: There is a small density in the left perihilar region new since previous exam probably due to summation of shadows. No new infiltrate is seen. There is no demonstrated pleural abnormality. Normal size heart. Normal mediastinum and gracie. Normal visualized pulmonary arteries. There is mild atherosclerotic calcification of the aortic arch with tortuosity. There are mild there again is fusion of the lower cervical spine. Degenerative changes of the visualized thoracic spine. Normal visualized ribs, clavicles, and shoulders. There is no demonstrated abnormality of the visualized soft tissue structures of the upper abdomen. RAD/Chest PA and Lateral IMPRESSION: Small nodular density in the left perihilar region new since previous exam probably due to summation of shadows. Follow-up exam is recommended. Otherwise no active pulmonary disease. Electronically Signed: Lew Mgiuel MD at 10:38 EDT Tel , Service support ,
[2018-05-05 09:54] LABS: Absolute Lymphocyte Count 1.34 X10^3/ul (0.83-4.51); Absolute Neutrophil Count 10.9 X10^3/uL (2.0-7.7); Basophil# 0.04 X10^3/uL; Basophil% 0.3 % (0-1); Differential Indicated SCAN CRITERIA MET; Eosinophil# 0.28 X10^3/uL; Hematocrit 42.7 % (40-54); Hemoglobin 13.8 g/dl (13.0-16.5); Lymphocyte # 1.34 X10^3/ul (4.0); Lymphocyte % 9.4 % (19-41); Mean Corp Hgb Conc 32.3 g/gl (32-36); Mean Corpuscular Hgb 28.8 pg (27.0-32.0); Mean Corpuscular Volume 89.1 fL (80-94); Mean Platelet Vol. 9.5 fl (6.2-12.0); Monocyte% 11.3 % (0-10); Neutrophil # 10.88 X10^3/uL (2.7-7.7); Neutrophil % 76.5 % (47-70); POSITIVE COUNT NO; POSITIVE DIFFERENTIAL YES; POSITIVE MORPHOLOGY NO; Platelet Count 257 K/mm3 (150-450); RBC Distribution Width CV 14.4 % (11.6-14.6); RBC Distribution Width SD 47.3 fl (35.1-43.9); Red Blood Count 4.79 M/mm3 (4.6-6.2); White Blood Count 14.2 K/mm3 (4.4-11.0)
[2018-05-05 10:01] LABS: ALB/GLOB Ratio 1.1 RATIO (0.9-2.4); AST(SGOT) 17 U/L (15-37); Alanine Aminotransfer ALT/SGPT 21 U/L (16-61); Albumin, Serum 3.9 g/dL (3.2-5.0); Alkaline Phosphatase 39 U/L (45-117); Anion Gap 11 (5-15); BUN 20 mg/dL (7-18); BUN/Creat Ratio 11.5 RATIO (10-20); Calcium,Total 9.3 mg/dL (8.5-10.1); Chloride 106 mmol/L (98-107); Creatinine, Serum 1.74 mg/dL (0.70-1.30); EST Glomerular Filtration Rate 41 mL/min (>60); Est Glom Filt Rate - Afr Amer 50 mL/min (>60); Estimated Creatinine Clearance 30.88 ml/min; Globulin 3.7 g/dL (2.2-4.2); Glucose 128 mg/dL (74-106); Potassium 3.7 mmol/L (3.5-5.1); Protein, Total 7.6 g/dL (6.4-8.2); Sodium Level 146 mmol/L (136-145)
[2018-05-05 10:18] LABS: Mucous, Urine 0 SEEN /hpf (<or=2+); Red Blood Cells-Urine 0 SEEN /hpf (0-5); Squamous Epithelial Cells - UA 0 SEEN /hpf (0-5); White Blood Cells 0 SEEN /hpf (0-5)
--- NOTE | 2018-05-05 10:26 | ED.VISSUMM ---
- ER Visit Summary Date of Service: 05/05/18 Chief Complaint: Per run sheet shortness of breath and diaphoresis. Per patient chest discomfort with nausea diaphoresis and dyspnea. History of Present Illness: The patient is a 72 M with multiple medical problems who was transported by squad because of midsternal chest discomfort without radiation associated with dyspnea, nausea and diaphoresis. He had urged to defecate and had a large bowel movement. He does have history of coronary disease and has a stent. He was diagnosed with a N STEMI. Patient denies fever, chills or night sweats. Denies weight gain or weight loss. He reports during the episode he had binocular blurred vision. He had no other ocular symptoms. He had no ENT symptoms. Cardiovascular was positive for chest pain that was central. He has chronic orthopnea. He states he sleeps in a lazy boy. He cannot lie flat. He does report dyspnea, dyspnea on exertion and the chronic orthopnea. GI is positive for nausea otherwise negative. is negative. Musculoskeletal positive for chronic back pain. He is on multiple medications for his chronic back pain. Skin is normal color apparently he was pale per paramedics. Neuro was positive for generalized weakness otherwise negative. He does report easily bruising secondary to Eliquis. He has history of atrial fibrillation. Patient did report coughing a large clot up this morning upon awakening. He has no history of nosebleeds. He has not coughed blood since. He denies any leg pain, discoloration. He states his left leg is always slightly swollen compared to the right. Physical Examination: Initial blood pressure was 98/70 with a heart rate of 108. Monitor reveals atrial fibrillation with a rate of 103. He is well-nourished well-developed in no apparent distress. BMI is 33.3. Head is atraumatic normocephalic. Pupils are equal round reactive. Extraocular muscles are intact. TMs are pearly white with landmarks noted. Nares patent with no drainage. Posterior pharynx without erythema or exudate. Uvula is midline. There is no dysphonia or dysphasia. Trachea is midline. There is no stridor with auscultation of the neck. Heart is irregularly irregular and rapid. Lungs reveal no wheeze, rales or rhonchi. Breath sounds are diminished bilaterally. Abdomen slightly distended tympanitic without tenderness. Unable to assess for paraspinal megaly secondary to body habitus. No abdominal bruit is noted. Distal pulses upper lower extremity were palpable and symmetric. There is no discoloration of the lower extremities, palpable cords, leg vein distention, pain along the distribution of deep venous system. The left leg is slightly swollen comparison to right, which per patient is a chronic issue for the past several years. He is alert oriented with a nonfocal neurologic exam. Test Results: EKG reveals a ventricular rate of 103 and rhythm of atrial fibrillation. There is evidence of a left anterior fascicular block. There is evidence of probable inferior NM. There is no acute ischemia noted. Two-view chest x-ray reveals normal cardiac silhouette and mediastinum. There is no cephalization. There is no fluid in the fissures. There is no effusion. There is no infiltrate noted. This is essentially unchanged from February 27, 2018. White count elevated 14.2 thousand without shift. Electro panel is marked for a sodium 146, glucose 128 and creatinine 1.74 with a GFR 41. Troponins less than 0.015. Lactate elevated 2.1. Emergency Department Course and Treatment: I was informed by his nurse that she administered a 1 L bolus for his tachycardia and low blood pressure. EKG was obtained to evaluate for acute ischemia since patient's history is concerning for cardiac ischemia. Chest x-ray to evaluate for CHF, pneumonia or other etiology of dyspnea. CBC was obtained to evaluate for anemia which could explain his dyspnea and leukocytosis. In light of his age multiple medical problems electro panel was obtained to evaluate for hyponatremia renal insufficiency hyperglycemia etc. Troponin was obtained as a baseline since he reports chest pain and has known history of coronary disease. Patient had appropriate response to his liter bolus. Treatment Plan: If patient has not taken aspirin past 24 hours will administer aspirin. Will need to have further workup regarding the episode of hemoptysis. Will need serial enzymes in light of his complaint of chest pain with associated symptoms. Disposition: Admit PCU Impression: 1. Midsternal chest pain rule out cardiac etiology 2. Hypotension fluid responsive 3. Lactic acidosis 4. Atrial fibrillation with RVR 5. Renal insufficiency 6. Leukocytosis unknown etiology suspect stress response 7. Reported hemoptysis unknown etiology This note was generated with [employer] software. It may contain incorrect words, spelling, and punctuation that were not noted in review of the chart prior to signing ED Disposition - Plan for ED Patient: Chief Complaint: General Illness Referrals: Boom Aviles [Primary Care Provider] -
[2018-05-05 10:27] LABS: Lactic Acid 2.1 mmol/L (0.4-2.0)
[2018-05-05 10:29] LABS: Color, Urine Yellow (Yellow); Glucose, Dipstick Normal (Normal); Ketone-Dipstick Negative (Negative); Leukocyte Esterase-Dipstick Negative /ul (Negative); Nitrite-Dipstick Negative (Negative); Occult Blood-Urine Negative /ul (Negative); Protein-Dipstick Negative (Negative); Urine Bilirubin Dipstick Negative (Negative); Urine Clarity Clear (Clear); Urine Urobilinogen Normal (Normal)
[2018-05-05 10:37] LABS: Bacteria RARE /hpf (None Seen); Hyaline Cast 0-5 SEEN /lpf (0-5)
--- NOTE | 2018-05-05 10:51 | NURSING ---
DR CHAN FOR DR ACUNA
[2018-05-05] MEDS: Aspirin 81 MG TAB.CHEW 162 MG PO (10:52)
--- NOTE | 2018-05-05 10:58 | NURSING ---
PCU OBS HYPOTENSION, CP PAINTSIL
--- NOTE | 2018-05-05 11:13 | NURSING ---
Blane notified patient may transfer to PCU.
--- NOTE | 2018-05-05 11:53 | EKG12_ITS ---
Test Reason : CP ADMISSION Blood Pressure : / mmHG Vent. Rate : 116 BPM Atrial Rate : 125 BPM P-R Int : 000 ms QRS Dur : 074 ms QT Int : 296 ms P-R-T Axes : 000 -61 070 degrees QTc Int : 411 ms Atrial fibrillation Left anterior fascicular block Inferior infarct , age undetermined , cannot be excluded Poor R wave progression Abnormal ECG Confirmed by CECILIA CLEVELAND, BEN ([id number]), editor farm journal BRAXTON COLLIER ([id number]) on 05/07/2018 2:24:56 PM Referred By: ROCIO Confirmed By:BEN BROOKS MD
--- NOTE | 2018-05-05 12:07 | HP.PCM_ITS ---
Problem List (1) Atrial fibrillation with RVR Status: Acute (2) Chronic back pain Status: Chronic Qualifiers: Back pain laterality: unspecified Sciatica laterality: sciatica laterality unspecified (3) Chronic pain syndrome Status: Chronic (4) Paroxysmal atrial fibrillation Status: Chronic (5) diabetes mellitus type II Status: Chronic (6) coronary artery disease Status: Chronic Comment: status post stent in 10/2013, following with Dr. Levine / History of Present Illness Date of Admission: 05/05/18 Chief Complaint: Dizziness, presyncope, hemoptysis The patient is a 72 year old M with past medical history of paroxysmal atrial fibrillation, hypertension, type II DM, CAD status post stent, chronic back pain , recently admitted and discharged in February 2018 with chest pain. Patient could not complete the stress test in that admission. What was done was read as negative. Patient woke up this morning, was preparing to go have breakfast outside, when he started feeling unwell. He attempted to clear his throat and coughed up and lump of dark blood sputum. He denied any fever or chills or prior upper respiratory infection. He started to feel sweaty and called the EMS and they brought him to the ED. at the time of being seen, he denied any chest pain no dizziness or palpitations or shortness of breath. No bleeding from any orifices. Vitals in the ED showed temperature of 98.7, heart rate 109, blood pressure 116/ 81, respiratory rate 20, oxygen saturation 97% on room air. Vitals showed a RBC count of 14.2, Hb 13.8, platelets of 257. Sodium was 147, potassium 3.7, chloride 106, bicarbonate 29, BUN was 20 creatinine was elevated at 1.74. Admitting lactic acid was 2.1, repeat is 1.7. Past Medical History Past Medical History (Chronic Problems): Chronic Problems Chronic back pain (Chronic) Chronic pain syndrome (Chronic) Chronic pain (Chronic) Paroxysmal atrial fibrillation (Chronic) hypertension (Chronic) diabetes mellitus type II (Chronic) coronary artery disease (Chronic) status post stent in 10/2013, following with Dr. Levine/ Allergies adhesive Allergy (Unknown, Verified 05/05/18 09:26) Unknown PER [facility] choline fenofibrate [From Trilipix] Allergy (Unknown, Verified 05/05/18 09:26) Unknown PER [facility] pregabalin [From Lyrica] Allergy (Unknown, Verified 05/05/18 09:26) Unknown PER [facility] [id number]-[id number] Reductase Inhibitor Allergy (Unknown, Verified 05/05/18 09:26) Unknown PER [facility] Sulfa (Sulfonamide Antibiotics) Allergy (Verified 05/05/18 09:26) Itching vancomycin Allergy (Verified 05/05/18 09:26) Itching Home Medications: Ambulatory Orders Medication Instructions Recorded Carvedilol [Coreg (Beta Rui)] 25 mg PO BID 06/14/14 Pantoprazole Sodium [Protonix] 40 mg PO DAILY 06/14/14 predniSONE tablet 10 mg PO DAILY 06/14/14 traMADol [Ultram] 50 mg PO Q6H PRN PRN 06/14/14 Insulin Detemir [Levemir FlexPen] 34 units SC QHS 08/30/14 Albuterol Inhaler [Ventolin Hfa] 1 - 2 puff INHALATION Q4H PRN PRN 10/08/17 #1 inhaler Benazepril HCl [Lotensin] 20 mg PO BID 10/08/17 Cholecalciferol (VIT D3) [Vitamin 1,000 unit PO DAILY 10/08/17 D3] Furosemide [Lasix] 40 mg PO BREAKFAST 10/08/17 Insulin Lispro [Humalog KwikPen] 28 unit SQ TIDCM 10/08/17 Isosorbide Mononitrate [Isosorbide 30 mg PO DAILY 10/08/17 Mononitrate ER] Lactulose 15 ml PO BID 10/08/17 Apixaban [Eliquis] 5 mg PO BID 02/25/18 fentaNYL patch [Duragesic patch] 25 mcg TRANSDERM. Q72H 3 Days #1 02/28/18 patch Vit C/Vit E AC/Lut/Copper/Zinc 1 each PO BID 05/05/18 [Preservision Lutein Softgel] Surgical History: herniorrhaphy, - - rotator cuff repair, hernia repair. Lives: Alone Smoking Status: Never smoker Tobacco Use: Non-smoker Alcohol: None Drugs: None - *Family History Maternal History Items: No pertinent history Paternal History Items: Cancer Review of Systems Constitutional: Reports: Weakness. Denies: Anorexia, Chills, Fever, Night Sweats, Weight Change Eyes: Denies: Blurred vision, Cataracts HEENT: Denies: Difficulty Hearing, Difficulty Swallowing, Head Aches, Hearing Changes, Sinus Congestion, Sinus Drainage Cardiovascular: Reports: Light Headedness. Denies: Chest Pain, Claudication, Orthopnea, Palpitations, Paroxysmal Noc. Dyspnea Respiratory: Denies: Cough, Hemoptysis, Shortness of breath at rest, Shortness of breath upon exertion, Sputum production Gastrointestinal: Denies: Abdominal Pain, Nausea, Vomiting Genitourinary: Denies: Dysuria, Frequency Musculoskeletal: Denies: Joint Pain, Joint stiffness, Joint swelling, Joint Tenderness Skin: Denies: Rash, Wounds Neurological: Denies: Difficulty swallowing, Focal weakness, Numbness, Tingling Psychiatric: Denies: Anxiety, Depression, Homicidal Ideations, Suicidal Ideations Hematologic/ Lymphatic: Denies: Easy Bruising, Easy Bleeding VTE Information - Inpt Only VTE Present on Admission: No VTE Pharm Prophylaxis ordered?: Yes Patient Problems: Active and Suspected Problems Atrial fibrillation with RVR (Acute) - Physical Exam General: Alert, Oriented x3, Cooperative, No apparent distress HEENT: Atraumatic, PERRLA, EOMI, Normocephalic Oral: Moist Mucosa Neck: Supple Lungs: Clear to auscultation, Normal air movement Cardiovascular: Regular rate, Regular Rhythm, Normal S1, Normal S2, No murmurs Abdomen: Bowel Sounds Present, Soft, Non Tender, Non-Distended, No Hepato- splenomegaly Extremities: No edema Skin: No rashes, No breakdown Musculoskeletal: No Tenderness to Palpation of Joints or Extremities Lymphatic: No Cervical, Supraclavicular, or Inguinal Adenopathy Neurological: Cranial nerves II-XII grossly intact Psych/Mental Status: Normal Affect, Appropriate Vital Signs Temp Pulse Resp BP Pulse Ox 98.3 F 107 H 19 H 115/71 96 05/05/18 09:18 05/05/18 11:00 05/05/18 11:00 05/05/18 11:00 05/05/18 11:00 Assessment/Plan All Active Problems Atrial fibrillation with RVR (Acute) NSTEMI (non-ST elevated myocardial infarction) (Acute) Encephalopathy acute (Resolved) Pneumonia (Resolved) Severe sepsis with acute organ dysfunction (Resolved) 72 year old M with past medical history of paroxysmal atrial fibrillation, hypertension, type II DM, CAD status post stent, chronic back pain, recently admitted and discharged in February 2018 with chest pain. 1. Dizziness secondary to A. fib with RVR, patient is on beta-rui and Eliquis Plan: Admit to PCU, monitor on telemetry, continue on home beta-rui, Eliquis , metoprolol 5 mg IV ?1, monitor vitals and telemetry 2. Paroxysmal atrial fibrillation, currently in RVR, management as seen #1 3. Elevated lactic acid, unclear etiology, repeat is resolved 4. Hypertension, controlled, continue on home regimen 5. Type II DM, continue on home insulin regimen, as well as Accu-Cheks with insulin sliding scale 6. JAQUI on CKD stage III, will continue on gentle IV fluids, repeat BMP in a.m. 7. CAD status post stent, cardiomyopathy, on beta-rui, Imdur, SHANDA inhibitor , 8. Chronic back pain, on fentanyl patch, tramadol as needed, Zanaflex 9. DVT prophylaxis-patient is on apixaban Code Visit Inpatient E&M: 31523 Init Hosp L3
--- NOTE | 2018-05-05 12:12 | ECHOD_ITS ---
Reason For Study: dyspnea/SOB Procedure This was a 2D Doppler, Color Flow transthoracic echocardiogram. The study was technically difficult. Exam performed portable in patient room. Left Ventricle Normal LV size. Left ventricular systolic function is normal. The estimated ejection fraction is 65 %. There is evidence of diastolic dysfunction. No regional wall motion abnormalities noted. Right Ventricle Normal RV size. Normal systolic function. Atria The left atrium is mildly enlarged. Normal right atrium. No doppler evidence for ASD. Mitral Valve There is mild mitral annular calcification. Normal mitral valve. Mild (1+) mitral valve insufficiency. Tricuspid Valve Normal tricuspid valve. Trivial tricuspid valve insufficiency. Right ventricular systolic pressure estimated to be 32 mmHg. Aortic Valve Trisinus/trileaflet aortic valve. Moderate focal aortic valve thickening. Mild to moderate aortic stenosis. Pulmonic Valve Normal pulmonic valve. Trivial pulmonic valve insufficiency. Great Vessels Moderately dilated ascending aorta. Pericardium/Pleural No pericardial effusion. MMode/2D Measurements & Calculations LVIDd: 5.3 cm IVSd: 1.2 cm LVOT diam: 2.0 cm LVIDs: 3.6 cm LVPWd: 1.3 cm LVOT area: 3.3 cm2 FS: 31.2 % Ao root diam: 4.6 cm LAV(MOD-bp): 52.0 ml EDV(MOD-sp4): 63.4 ml LAV(MOD-bp) Indexed: 27.6 ml/m2 ESV(MOD-sp4): 30.0 ml LAV(MOD-sp2): 70.1 ml EF(MOD-sp4): 52.7 % LAV(MOD-sp4): 36.5 ml EDV(MOD-sp2): 69.4 ml SV(MOD-sp4): 33.4 ml SV(MOD-sp2): 37.9 ml EF(MOD-sp2): 54.6 % LA A4 area: 14.6 cm2 RA A4 area: 11.4 cm2 Doppler Measurements & Calculations MV E max kedar: 104.7 cm/sec Lat Peak E' Kedar: 5.9 cm/sec Med Peak E' Kedar: 5.1 cm/sec MV A max kedar: 133.9 cm/sec E/E' lat: 17.8 E/E' med: 20.5 MV E/A: 0.78 Ao V2 max: 299.1 cm/sec AI max kedar: 426.0 cm/sec LV V1 max: 112.8 cm/sec Ao max P.8 mmHg AI max P.8 mmHg LV V1 max P.1 mmHg Ao V2 mean: 208.4 cm/sec AI dec slope: 216.5 cm/sec2 LV V1 mean P.0 mmHg Ao mean P.2 mmHg AI P1/2t: 576.2 msec LV V1 mean: 84.2 cm/sec Ao V2 VTI: 63.2 cm LV V1 VTI: 25.1 cm ANGELA(I,D): 1.3 cm2 ANGELA(V,D): 1.2 cm2 SV(LVOT): 82.4 ml PA V2 max: 91.0 cm/sec TR max kedar: 269.4 cm/sec TR max P.0 mmHg Interpretation Summary The study was technically difficult. Left ventricular systolic function is normal. The estimated ejection fraction is 65 %. The left atrium is mildly enlarged. There is mild mitral annular calcification. Mild (1+) mitral valve insufficiency. Trivial tricuspid valve insufficiency. Mild to moderate aortic stenosis. Trivial pulmonic valve insufficiency. Moderately dilated ascending aorta. Right ventricular systolic pressure estimated to be 32 mmHg. There is evidence of diastolic dysfunction. Ordering Physician: Ailyn Roblero Referring Physician: Boom Aviles Performed By: Leah Carter RDCS, RVT
[2018-05-05] MEDS: 0.9% Normal Saline 1,000 ML 75 ML IV (12:29)
[2018-05-05] MEDS: Metoprolol Tartrate 5 MG/5 ML Vial IV (12:30)
[2018-05-05 12:46] LABS: Bedside Glucose 89 mg/dL (70-110)
[2018-05-05 13:17] LABS: Lactic Acid 1.7 mmol/L (0.4-2.0)
[2018-05-05 13:26] LABS: BNP,B-Type NATRIURETIC PEPTIDE 375.6 pg/mL (0-100)
[2018-05-05 13:52] LABS: Reflex Lactate? Y
[2018-05-05] MEDS: traMADol 50 MG Tablet PO (14:53)
[2018-05-05] MEDS: tiZANidine HCl 2 MG Tablet 4 MG PO ×2 (14:58→21:32)
[2018-05-05 16:14] LABS: Anion Gap 7 (5-15); BUN 20 mg/dL (7-18); BUN/Creat Ratio 12.3 RATIO (10-20); Calcium,Total 8.4 mg/dL (8.5-10.1); Chloride 108 mmol/L (98-107); Creatinine, Serum 1.63 mg/dL (0.70-1.30); EST Glomerular Filtration Rate 44 mL/min (>60); Est Glom Filt Rate - Afr Amer 54 mL/min (>60); Estimated Creatinine Clearance 32.97 ml/min; Glucose 221 mg/dL (74-106); Potassium 4.5 mmol/L (3.5-5.1); Sodium Level 141 mmol/L (136-145)
[2018-05-05 17:15] LABS: Bedside Glucose 208 mg/dL (70-110)
[2018-05-05] MEDS: Insulin Lispro 100 UNIT/ML INSULN.PEN 28 UNIT SC (17:15)
[2018-05-05] MEDS: Furosemide 20 MG Tablet PO (17:15)
[2018-05-05] MEDS: Lactulose 20 GM/30 ML UDC 10 GM PO (21:32)
[2018-05-05] MEDS: Lisinopril 20 MG Tablet PO (21:32)
[2018-05-05] MEDS: APIXABAN 5 MG TABLET PO (21:32)
[2018-05-05] MEDS: Carvedilol 12.5 MG Tablet PO (21:33)
[2018-05-05 22:05] LABS: Bedside Glucose 111 mg/dL (70-110)
[2018-05-05] MEDS: fentaNYL 25 MCG Patch TRANSDERM. (23:15)
[2018-05-06] MEDS: traMADol 50 MG Tablet PO ×2 (01:22→14:10)
[2018-05-06] MEDS: 0.9% Normal Saline 1,000 ML 75 ML IV (01:23)
[2018-05-06 02:59] VITALS: PULSE 56
[2018-05-06 03:30] VITALS: BP 151/78; PULSE 62; RESP 18; TEMP 37.1; O2SAT 95
[2018-05-06] MEDS: tiZANidine HCl 2 MG Tablet 4 MG PO (05:12)
[2018-05-06 06:26] LABS: Absolute Lymphocyte Count 1.63 X10^3/ul (0.83-4.51); Absolute Neutrophil Count 5.8 X10^3/uL (2.0-7.7); Basophil# 0.03 X10^3/uL; Basophil% 0.3 % (0-1); Eosinophil# 0.34 X10^3/uL; Eosinophils% 3.7 % (0-5); Hematocrit 34.7 % (40-54); Hemoglobin 11.4 g/dl (13.0-16.5); Lymphocyte # 1.63 X10^3/ul (4.0); Lymphocyte % 17.7 % (19-41); Mean Corp Hgb Conc 32.9 g/gl (32-36); Mean Corpuscular Hgb 29.5 pg (27.0-32.0); Mean Corpuscular Volume 89.7 fL (80-94); Mean Platelet Vol. 9.2 fl (6.2-12.0); Monocyte# 1.27 X10^3/uL; Monocyte% 13.8 % (0-10); Neutrophil # 5.82 X10^3/uL (2.7-7.7); Neutrophil % 63.1 % (47-70); Platelet Count 211 K/mm3 (150-450); RBC Distribution Width CV 14.1 % (11.6-14.6); RBC Distribution Width SD 45.8 fl (35.1-43.9); Red Blood Count 3.87 M/mm3 (4.6-6.2); White Blood Count 9.2 K/mm3 (4.4-11.0)
[2018-05-06 06:37] LABS: POSITIVE COUNT NO; POSITIVE DIFFERENTIAL NO; POSITIVE MORPHOLOGY NO
[2018-05-06 06:42] LABS: Anion Gap 8 (5-15); BUN 22 mg/dL (7-18); BUN/Creat Ratio 17.6 RATIO (10-20); Calcium,Total 8.4 mg/dL (8.5-10.1); Chloride 109 mmol/L (98-107); Creatinine, Serum 1.25 mg/dL (0.70-1.30); EST Glomerular Filtration Rate 60 mL/min (>60); Est Glom Filt Rate - Afr Amer 73 mL/min (>60); Estimated Creatinine Clearance 42.36 ml/min; Glucose 127 mg/dL (74-106); Potassium 3.7 mmol/L (3.5-5.1); Sodium Level 145 mmol/L (136-145)
[2018-05-06 06:55] LABS: Bedside Glucose 153 mg/dL (70-110)
[2018-05-06 07:10] VITALS: PULSE 73
[2018-05-06 08:25] VITALS: BP 136/61; PULSE 61; RESP 18; TEMP 37.1; O2SAT 95
[2018-05-06] MEDS: Lisinopril 20 MG Tablet PO (08:29)
[2018-05-06] MEDS: Carvedilol 12.5 MG Tablet PO (08:29)
[2018-05-06] MEDS: Insulin Lispro 100 UNIT/ML INSULN.PEN 28 UNIT SC ×2 (08:30→13:00)
[2018-05-06] MEDS: Pantoprazole Sodium 40 MG Tablet PO (08:30)
[2018-05-06] MEDS: Lactulose 20 GM/30 ML UDC 10 GM PO (08:30)
[2018-05-06] MEDS: predniSONE 10 MG Tablet PO (08:30)
[2018-05-06] MEDS: APIXABAN 5 MG TABLET PO (08:30)
[2018-05-06] MEDS: Isosorbide Mononitrate 30 MG Tablet PO (08:30)
[2018-05-06] MEDS: Furosemide 20 MG Tablet PO (08:30)
--- NOTE | 2018-05-06 10:44 | EKG12_ITS ---
Test Reason : CP Blood Pressure : / mmHG Vent. Rate : 063 BPM Atrial Rate : 063 BPM P-R Int : 180 ms QRS Dur : 084 ms QT Int : 404 ms P-R-T Axes : 039 -52 017 degrees QTc Int : 413 ms Normal sinus rhythm Left anterior fascicular block T wave abnormality, consider lateral ischemia Abnormal ECG Confirmed by CECILIA CLEVELAND, BEN ([id number]), editorial writer BRAXTON COLLIER ([id number]) on 05/07/2018 2:16:35 PM Referred By: ROCIO Confirmed By:BEN BROOKS MD
[2018-05-06 11:20] VITALS: O2SAT 95
[2018-05-06 11:41] VITALS: PULSE 68
[2018-05-06 11:55] LABS: Bedside Glucose 108 mg/dL (70-110)
--- NOTE | 2018-05-06 14:53 | PN_ITS ---
Patient Problems: Active and Suspected Problems Atrial fibrillation with RVR (Acute) Subjective: Patient was seen and examined. No acute events overnight. He converted to normal sinus rhythm yesterday. Denies chest pain no dizziness or nausea or vomiting no shortness of breath Objective: Physical Exam General: Alert, Oriented x3, Cooperative, No apparent distress HEENT: Atraumatic, PERRLA, EOMI, Normocephalic Oral: Moist Mucosa Neck: Supple Lungs: Clear to auscultation, Normal air movement Cardiovascular: Regular rate, Regular Rhythm, Normal S1, Normal S2, No murmurs Abdomen: Bowel Sounds Present, Soft, Non Tender, Non-Distended, No Hepato- splenomegaly Extremities: No edema Skin: No rashes, No breakdown Musculoskeletal: No Tenderness to Palpation of Joints or Extremities Lymphatic: No Cervical, Supraclavicular, or Inguinal Adenopathy Neurological: Cranial nerves II-XII grossly intact Psych/Mental Status: Normal Affect, Appropriate Vitals/I&O's: Vital Signs Temp Pulse Resp BP Pulse Ox 98.7 F 68 18 136/61 H 95 05/06/18 08:25 05/06/18 11:41 05/06/18 08:25 05/06/18 08:25 05/06/18 11:20 Oxygen Delivery Method Room Air Weight: 80.4 kg Body Mass Index (BMI) 31.4 Intake and Output for Last 24 Hours 05/04/18 05/05/18 05/06/18 23:59 23:59 23:59 Intake Total 1017 / 1017 567 / 567 Balance 1017 / 1017 567 / 567 Laboratory Results 05/05/18 15:18: Sodium 141, Potassium 4.5, Chloride 108 H, Carbon Dioxide 26.0, Anion Gap 7, BUN 20 H, Creatinine 1.63 H, Estim Creat Clear Calc 32.97, Est GFR (MDRD) Af Amer 54 L, Est GFR (MDRD) Non-Af 44 L, BUN/Creatinine Ratio 12.3, Glucose 221 H, Calcium 8.4 L 05/05/18 15:18: Troponin I < 0.015 05/05/18 17:09: POC Glucose 208 H 05/05/18 21:25: POC Glucose 111 H 05/06/18 05:40: Sodium 145, Potassium 3.7, Chloride 109 H, Carbon Dioxide 28.0, Anion Gap 8, BUN 22 H, Creatinine 1.25, Estim Creat Clear Calc 42.36, Est GFR ( MDRD) Af Amer 73, Est GFR (MDRD) Non-Af 60, BUN/Creatinine Ratio 17.6, Glucose 127 H, Calcium 8.4 L 05/06/18 05:40: WBC 9.2, RBC 3.87 L, Hgb 11.4 L, Hct 34.7 L, MCV 89.7, MCH 29.5 , MCHC 32.9, RDW 14.1, RDW Differential 45.8 H, Plt Count 211, MPV 9.2, Immature Gran % (Auto) 1.400 H, Neut % (Auto) 63.1, Lymph % (Auto) 17.7 L, [place] % (Auto) 13.8 H, Eos % (Auto) 3.7, Baso % (Auto) 0.3, Absolute Neuts (auto) 5.8 , Absolute Lymphs (auto) 1.63, Total Counted Not Reportable 05/06/18 06:45: POC Glucose 153 H 05/06/18 11:50: POC Glucose 108 Current Medications Acetaminophen (Tylenol) 650 mg PO Q6H PRN PRN PRN Reason: Mild Pain (1-3)/Temp > 100.7 F Apixaban (Eliquis) 5 mg PO BID [facility] Last Admin: 05/06/18 08:30 Dose: 5 mg Bisacodyl (Dulcolax) 5 mg PO DAILY PRN PRN PRN Reason: Constipation Carvedilol (Coreg) 12.5 mg PO BID [facility] Last Admin: 05/06/18 08:29 Dose: 12.5 mg Cholecalciferol (Vitamin D) 1,000 unit PO DAILYCM [facility] Last Admin: 05/06/18 08:30 Dose: 1,000 unit Fentanyl (Duragesic Patch) 25 mcg TRANSDERM. Q72H [facility] Last Admin: 05/05/18 23:15 Dose: 25 mcg Furosemide (Lasix) 20 mg PO BIDLX [facility] Last Admin: 05/06/18 08:30 Dose: 20 mg Insulin Glargine (Lantus ([facility])) 34 units SC QHS [facility] Last Admin: 05/05/18 21:33 Dose: 34 units Insulin Human Lispro (Humalog Kwikpen ([facility])) 28 unit SC TIDCM [facility] Last Admin: 05/06/18 08:30 Dose: 28 units Isosorbide Mononitrate (Imdur) 30 mg PO DAILY [facility] Last Admin: 05/06/18 08:30 Dose: 30 mg Lactulose (Chronulac, Cephulac) 10 gm PO BID [facility] Last Admin: 05/06/18 08:30 Dose: 10 gm Lisinopril (Zestril) 20 mg PO BID [facility] Last Admin: 05/06/18 08:29 Dose: 20 mg Magnesium Hydroxide (Milk Of Magnesia) 30 ml PO DAILY PRN PRN Reason: Constipation Pantoprazole Sodium (Protonix) 40 mg PO DAILY [facility] Last Admin: 05/06/18 08:30 Dose: 40 mg Prednisone () 10 mg PO DAILY@0800 [facility] Last Admin: 05/06/18 08:30 Dose: 10 mg Psyllium Hydrophilic Mucilloid (Metamucil) 1 packet PO DAILY PRN PRN PRN Reason: CONSTIPATION Tizanidine HCl (Zanaflex) 4 mg PO TID [facility] Last Admin: 05/06/18 05:12 Dose: 4 mg Tramadol HCl (Ultram) 50 mg PO Q6H PRN PRN PRN Reason: PAIN Last Admin: 05/06/18 01:22 Dose: 50 mg Medical Necessity - Tobacco Use Smoking Status: Never smoker Tobacco Use: Non-smoker Assessment/Plan All Active Problems Atrial fibrillation with RVR (Acute) NSTEMI (non-ST elevated myocardial infarction) (Acute) Encephalopathy acute (Resolved) Pneumonia (Resolved) Severe sepsis with acute organ dysfunction (Resolved) 72 year old M with past medical history of paroxysmal atrial fibrillation, hypertension, type II DM, CAD status post stent, chronic back pain, recently admitted and discharged in February 2018 with chest pain. 1. Dizziness secondary to A. fib with RVR, resolved, spontaneously cardioverted , in normal sinus rhythm 2. Paroxysmal atrial fibrillation, currently in RVR, management as seen #1 3. Elevated lactic acid, unclear etiology, repeat is resolved 4. Hypertension, controlled, continue on home regimen 5. Type II DM, continue on home insulin regimen, as well as Accu-Cheks with insulin sliding scale 6. JAQUI on CKD stage III, improved with IV fluids 7. CAD status post stent, cardiomyopathy, on beta-homero, Imdur, SHANDA inhibitor , 8. Chronic back pain, on fentanyl patch, tramadol as needed, Zanaflex 9. DVT prophylaxis-patient is on apixaban Code Visit Inpatient E&M: 30123 Subs Hosp L2
--- NOTE | 2018-05-06 14:53 | PCM.DC ---
- Discharge Diagnoses Current Active Problems: Current Active and Chronic Problems Atrial fibrillation with RVR (Acute) Reason(s) for Visit for Discharge Instructions: Dizziness, feeling unwell You will use the following diet at home:: Calorie/Carbohydrate Controlled (specify 1200, 1400, etc), Cardiac Your food should be the consistency of: Regular Your liquids should be the consistency of: Regular/Thin Discharge Activity: Return to Normal Activity Allergies/Adverse Reactions: Allergies adhesive Allergy (Unknown, Verified 05/05/18 09:26) Unknown PER [employer] choline fenofibrate [From Trilipix] Allergy (Unknown, Verified 05/05/18 09:26) Unknown PER [employer] pregabalin [From Lyrica] Allergy (Unknown, Verified 05/05/18 09:26) Unknown PER [employer] Yklngov-Gmu-Jsm Reductase Inhibitor Allergy (Unknown, Verified 05/05/18:26) Unknown PER [employer] Sulfa (Sulfonamide Antibiotics) Allergy (Verified 05/05/18 09:26) Itching vancomycin Allergy (Verified 05/05/18 09:26) Itching Medications to take at Discharge Carvedilol [Coreg (Beta Rui)] 25 mg PO BID 06/14/14 Pantoprazole Sodium [Protonix] 40 mg PO DAILY 06/14/14 predniSONE tablet 10 mg PO DAILY 06/14/14 traMADol [Ultram] 50 mg PO Q6H PRN PRN 06/14/14 Insulin Detemir [Levemir FlexPen] 34 units SC QHS 08/30/14 Albuterol Inhaler [Ventolin Hfa] 1 - 2 puff INHALATION Q4H PRN PRN #1 inhaler 10/08/17 Benazepril HCl [Lotensin] 20 mg PO BID 10/08/17 Cholecalciferol (VIT D3) [Vitamin D3] 1,000 unit PO DAILY 10/08/17 Furosemide [Lasix] 40 mg PO BREAKFAST 10/08/17 Insulin Lispro [Humalog KwikPen] 28 unit SQ TIDCM 10/08/17 Isosorbide Mononitrate [Isosorbide Mononitrate ER] 30 mg PO DAILY 10/08/17 Lactulose 15 ml PO BID 10/08/17 Apixaban [Eliquis] 5 mg PO BID 02/25/18 fentaNYL patch [Duragesic patch] 25 mcg TRANSDERM. Q72H 3 Days #1 patch 02/28/18 Vit C/Vit E AC/Lut/Copper/Zinc [Preservision Lutein Softgel] 1 each PO BID 05/05/18 Orders to be completed after discharge: Basic Metabolic Profile (BMP) Location: Laboratory Primary Care Physician: Boom Aviles [Primary Care Provider] - Please follow up with your Primary Care Physician in: within 2 weeks Test Results: Test results from this visit will be discussed in further detail at your follow-up appointment, if applicable. 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
--- NOTE | 2018-05-06 14:57 | DCINST_ITS ---
- Discharge Diagnoses Current Active Problems: Current Active and Chronic Problems Atrial fibrillation with RVR (Acute) Reason(s) for Visit for Discharge Instructions: Dizziness, feeling unwell You will use the following diet at home:: Calorie/Carbohydrate Controlled ( specify 1200, 1400, etc), Cardiac Your food should be the consistency of: Regular Your liquids should be the consistency of: Regular/Thin Discharge Activity: Return to Normal Activity Allergies/Adverse Reactions: Allergies adhesive Allergy (Unknown, Verified 05/05/18 09:26) Unknown PER [employer] choline fenofibrate [From Trilipix] Allergy (Unknown, Verified 05/05/18 09:26) Unknown PER [employer] pregabalin [From Lyrica] Allergy (Unknown, Verified 05/05/18 09:26) Unknown PER [employer] Eblelxm-Bmb-Tsq Reductase Inhibitor Allergy (Unknown, Verified 05/05/18:26) Unknown PER [employer] Sulfa (Sulfonamide Antibiotics) Allergy (Verified 05/05/18 09:26) Itching vancomycin Allergy (Verified 05/05/18 09:26) Itching Medications to take at Discharge Carvedilol [Coreg (Beta Rui)] 25 mg PO BID 06/14/14 Pantoprazole Sodium [Protonix] 40 mg PO DAILY 06/14/14 predniSONE tablet 10 mg PO DAILY 06/14/14 traMADol [Ultram] 50 mg PO Q6H PRN PRN 06/14/14 Insulin Detemir [Levemir FlexPen] 34 units SC QHS 08/30/14 Albuterol Inhaler [Ventolin Hfa] 1 - 2 puff INHALATION Q4H PRN PRN #1 inhaler Benazepril HCl [Lotensin] 20 mg PO BID 10/08/17 Cholecalciferol (VIT D3) [Vitamin D3] 1,000 unit PO DAILY 10/08/17 Furosemide [Lasix] 40 mg PO BREAKFAST 10/08/17 Insulin Lispro [Humalog KwikPen] 28 unit SQ TIDCM 10/08/17 Isosorbide Mononitrate [Isosorbide Mononitrate ER] 30 mg PO DAILY 10/08/17 Lactulose 15 ml PO BID 10/08/17 Apixaban [Eliquis] 5 mg PO BID 02/25/18 fentaNYL patch [Duragesic patch] 25 mcg TRANSDERM. Q72H 3 Days #1 patch Vit C/Vit E AC/Lut/Copper/Zinc [Preservision Lutein Softgel] 1 each PO BID 05/05 Orders to be completed after discharge: Basic Metabolic Profile (BMP) Location: Laboratory Primary Care Physician: Boom Aviles [Primary Care Provider] - Please follow up with your Primary Care Physician in: within 2 weeks Test Results: Test results from this visit will be discussed in further detail at your follow- up appointment, if applicable. 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
--- NOTE | 2018-05-06 14:57 | PCM.DC.SUM ---
Discharge Date and Diagnosis Date of Admission: 05/05/18 Date of Discharge: 05/06/18 - Primary Discharge Diagnosis Active and Suspected Problems Atrial fibrillation with RVR (Acute) Acute kidney injury - Secondary Discharge Diagnosis Chronic Problems Chronic back pain (Chronic) Chronic pain syndrome (Chronic) Chronic pain (Chronic) Paroxysmal atrial fibrillation (Chronic) hypertension (Chronic) diabetes mellitus type II (Chronic) coronary artery disease (Chronic) status post stent in 10/2013, following with Dr. Levine/ Hospital Course and Treatment Imaging Results: Clinical Impression(s) from Imaging Studies Chest X-Ray 05/05/18 09:44 IMPRESSION: Small nodular density in the left perihilar region new since previous exam probably due to summation of shadows. Follow-up exam is recommended. Otherwise no active pulmonary disease. Electronically Signed: Lew Miguel MD at 10:38 EDT Tel , Service support , Operations: None Procedures: 2-D Echocardiogram Summary of Care Provided: 72 year old M with past medical history of paroxysmal atrial fibrillation, hypertension, type II DM, CAD status post stent, chronic back pain, recently admitted and discharged in February 2018 comes in with chest pain, dizziness, reported hemoptysis which had resolved on arrival. He was found to be in A. fib with RVR, received 1 dose of IV metoprolol, continued on his home meds, converted to NSR. He was monitored over 24 hours on telemetry. Acute events, remaining normal sinus rhythm. He is on apixaban for paroxysmal atrial fibrillation. No hemoptysis was seen. 2D echo was done and report was not ready at time of discharge. Patient to follow-up with his primary care doctor for report. Discharge Diet: Low fat/ Low Cholesterol, 2000 Calorie Control Diet, 2000 mg Sodium Diet Discharge Activity: Return to Normal Activity Home Medications: Medications to take at Discharge Carvedilol [Coreg (Beta Rui)] 25 mg PO BID 06/14/14 Pantoprazole Sodium [Protonix] 40 mg PO DAILY 06/14/14 predniSONE tablet 10 mg PO DAILY 06/14/14 traMADol [Ultram] 50 mg PO Q6H PRN PRN 06/14/14 Insulin Detemir [Levemir FlexPen] 34 units SC QHS 08/30/14 Albuterol Inhaler [Ventolin Hfa] 1 - 2 puff INHALATION Q4H PRN PRN #1 inhaler 10/08/17 Benazepril HCl [Lotensin] 20 mg PO BID 10/08/17 Cholecalciferol (VIT D3) [Vitamin D3] 1,000 unit PO DAILY 10/08/17 Furosemide [Lasix] 40 mg PO BREAKFAST 10/08/17 Insulin Lispro [Humalog KwikPen] 28 unit SQ TIDCM 10/08/17 Isosorbide Mononitrate [Isosorbide Mononitrate ER] 30 mg PO DAILY 10/08/17 Lactulose 15 ml PO BID 10/08/17 Apixaban [Eliquis] 5 mg PO BID 02/25/18 fentaNYL patch [Duragesic patch] 25 mcg TRANSDERM. 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
== END 2018-05-06 14:56 | disposition home or self-care (01) ==
LOC: ED 10:46 → PCU 11:14
PROVIDERS: Admitting Provider Internal Medicine; Emergency Provider Emergency Medicine; Family Provider Family Medicine; PCP Family Medicine; Visit Provider Internal Medicine
DX: I48.0 Paroxysmal atrial fibrillation (principal); R06.02 Shortness of breath; N17.9 Acute kidney failure, unspecified; I25.10 Atherosclerotic heart disease of native coronary artery without angina pectoris; G89.4 Chronic pain syndrome; Z79.899 Other long term (current) drug therapy; Z79.52 Long term (current) use of systemic steroids; Z79.4 Long term (current) use of insulin; Z79.891 Long term (current) use of opiate analgesic; E11.22 Type 2 diabetes mellitus with diabetic chronic kidney disease; I12.9 Hypertensive chronic kidney disease with stage 1 through stage 4 chronic kidney disease, or unspecified chronic kidney disease; N18.3 Chronic kidney disease, stage 3 (moderate); K21.9 Gastro-esophageal reflux disease without esophagitis; I25.2 Old myocardial infarction; Z87.891 Personal history of nicotine dependence
CPT/HCPCS: 36415; 71046; 80048; 80053; 81001; 82962; 83605; 83880; 84484; 85025; 93005; 93306; 96361; 96374; 99218; 99285; J7030; G0378

== ENCOUNTER → 2018-05-23 11:00 | Outpatient (CLI) | payer MEDICARE, BC, SELFPAY ==
--- NOTE | 2018-05-23 11:16 | RAD_ITS ---
STUDY: X-RAY CHEST REASON FOR EXAM: Male, 73 years old. Nodule on left lung. TECHNIQUE: PA and lateral views of the chest. COMPARISON: May 05, 2018 FINDINGS: There is no new focal consolidation. The nodule noted within the left midlung on the prior examination is no longer apparent. Normal size heart. Normal mediastinum and gracie. Normal visualized pulmonary arteries. Normal visualized aortic arch and descending thoracic aorta. There are diffuse degenerative changes of the visualized thoracic spine. There are postsurgical changes of the lower cervical spine visualized. Normal visualized ribs, clavicles, and shoulders. There is no demonstrated abnormality of the visualized soft tissue structures of the upper abdomen. RAD/Chest PA and Lateral IMPRESSION: No acute cardiopulmonary process. Nodule within the left lung noted on the prior examination no longer apparent, likely reflected a confluence of shadows. Electronically Signed: Zaida Johns MD at 23:26 EDT Tel , Service support ,
== END ==
PROVIDERS: Family Provider Family Medicine; PCP Family Medicine; Visit Provider Family Medicine
DX: R91.1 Solitary pulmonary nodule (principal)
CPT/HCPCS: 71046

== ENCOUNTER 2018-06-27 04:33 | Emergency (ER) | payer MEDICARE, BC, SELFPAY ==
[2018-06-27 04:36] VITALS: BP 181/83; PULSE 73; RESP 22; TEMP 37.6; O2SAT 97; BMI 32.6
--- NOTE | 2018-06-27 04:36 | EKG12_ITS ---
Test Reason : SOB Blood Pressure : / mmHG Vent. Rate : 071 BPM Atrial Rate : 071 BPM P-R Int : 176 ms QRS Dur : 072 ms QT Int : 372 ms P-R-T Axes : 004 -51 012 degrees QTc Int : 404 ms Normal sinus rhythm Left axis deviation Inferior infarct , age undetermined Abnormal ECG Confirmed by SPARKLE CLEVELAND, ELIZ ([id number]), editor magazine BRAXTON COLLIER ([id number]) on 07/01/2018 2:59:57 PM Referred By: BA Confirmed By:ELIZ VILLAGRAN MD
--- NOTE | 2018-06-27 04:36 | RAD_ITS ---
STUDY: X-RAY CHEST REASON FOR EXAM: Male, 73 years old. Chronic shortness of breath. TECHNIQUE: PA and lateral views of the chest. COMPARISON: June 02, 2018. FINDINGS: Cardiac monitoring leads are present. The lungs are clear and expanded. There is no demonstrated pleural abnormality. There is borderline cardiomegaly. Normal mediastinum and gracie. Normal visualized pulmonary arteries. There is atherosclerotic calcification of the aortic arch with tortuosity. There are diffuse degenerative changes of the visualized thoracic spine. Patient has had previous cervical spine surgery. Normal visualized ribs, clavicles, and shoulders. There is no demonstrated abnormality of the visualized soft tissue structures of the upper abdomen. RAD/Chest PA and Lateral IMPRESSION: No radiographic evidence of acute cardiopulmonary disease. Electronically Signed: Emily Yuan MD at 6:41 EDT , Service support ,
--- NOTE | 2018-06-27 04:36 | RAD_ITS ---
STUDY: X-RAY - SOFT TISSUE NECK REASON FOR EXAM: Male, 73 years old. Choking for one month. TECHNIQUE: AP and lateral view(s) of the neck were obtained. COMPARISON: None. FINDINGS: Normal visualized nasopharynx, oropharynx, hypopharynx. Normal epiglottis. Normal visualized subglottic tracheal air column. Normal prevertebral soft tissue structures. Patient has had discectomies at C3-4, C4-5 and C5-6 with surgical fusion with plate and screws. The soft tissue structures are unremarkable. Patient is edentulous. RAD/Neck for Soft Tissue IMPRESSION: 1. Normal x-ray soft tissue neck. 2. Sequela of extensive cervical spine surgery. Electronically Signed: Emily Yuan MD at 6:25 EDT , Service support ,
--- NOTE | 2018-06-27 04:42 | ED.VISSUMM ---
- ER Visit Summary Date of Service: 06/27/18 Chief Complaint: Shortness of breath, cough, sensation throat History of Present Illness: The patient is a 73 M presents to the emergency department with 3 days of worsening shortness of breath. Patient states she has had cough feels like he cannot take a deep breath. He states when he lays flat, he feels like he is choking. He does describe sore throat. He is also had low-grade fevers and chills. The patient denies any history of underlying lung disease. He does not smoke. The patient is on daily steroids for history of low back pain. He denies any recent change in the dose. He denies any chest pain. He denies any increase in leg swelling. He states that tonight, he just felt like he cannot breathe. On squad arrival, he is not hypoxic. He was placed on oxygen but felt like this did not help him. Physical Examination: Vital signs reviewed General: Well-nourished, well-developed Head: Normocephalic, atraumatic Eyes: Pupils equal and reactive, extraocular muscles intact Neck, supple, no lymphadenopathy, no mass Heart: Regular rate and rhythm Respiratory: No distress, wheezing in all lung degroot Abdomen: Soft, nontender, nondistended, no peritoneal signs Back: Nontender Extremities: Nontender, no edema, no cords Skin: Normal color no rash Neuro: Alert and oriented, no focal or lateralizing deficits Test Results: [] Emergency Department Course and Treatment: The patient presents with cough and shortness of breath. He does have wheezing all degroot. He was also complaining of some feeling of throat swelling. I did obtain a chest x-ray which showed no focal infiltrate. I also obtained a lateral soft tissue of his neck which was unremarkable. Patient was given nebulized breathing treatments and Solu-Medrol. Screening labs were unremarkable. We have a few bouts of nonsustained atrial fibrillation which he does have a history of. His chest x-ray shows no evidence of volume overload. He had no chest pain. He has been dyspneic for 3 days and has negative cardiac enzymes. I do not feel that this is an acute coronary syndrome equivalent. The patient has had cough with some productive sputum. I do feel that this is more likely an infectious bronchitis. He had improvement with his treatments. I am going to continue him on steroids and I will add doxycycline. He is not hypoxic. He has no tachypnea. I do feel that the patient is safe for outpatient therapy and is comfortable this plan of care. He will be discharged home. Treatment Plan: [] Disposition: Discharge Impression: 1. Infectious bronchitis This note was generated with [employer] dictation software. It may contain incorrect words, spelling, and punctuation that were not noted in review of the chart prior to signing ED Disposition - Plan for ED Patient: Chief Complaint: Shortness of Breath Instructions: ED Upper Resp Infec Abx Tx Prescriptions: Prednisone [Deltasone] 40 mg PO DAILY #10 tab Doxycycline Monohydrate 100 mg PO BID #20 cap Referrals: Boom Aviles [Primary Care Provider] -
[2018-06-27 04:44] VITALS: O2SAT 96
[2018-06-27 04:48] VITALS: PULSE 78; RESP 12
[2018-06-27] MEDS: Ipratropium/Albuterol Sulfate 3 ML AMPUL.NEB INHALATION (04:48)
[2018-06-27] MEDS: Albuterol 2.5 MG/3 ML VIAL.NEB. INHALATION ×3 (04:48→04:55)
[2018-06-27 05:01] VITALS: PULSE 73; RESP 14
[2018-06-27 05:09] LABS: Absolute Lymphocyte Count 1.94 X10^3/ul (0.83-4.51); Absolute Neutrophil Count 6.8 X10^3/uL (2.0-7.7); Basophil% 0.9 % (0-1); Eosinophil# 0.54 X10^3/uL; Eosinophils% 4.8 % (0-5); Hematocrit 39.2 % (40-54); Hemoglobin 13.1 g/dl (13.0-16.5); Lymphocyte # 1.94 X10^3/ul (4.0); Lymphocyte % 17.2 % (19-41); Mean Corp Hgb Conc 33.4 g/gl (32-36); Mean Corpuscular Hgb 29.6 pg (27.0-32.0); Mean Corpuscular Volume 88.7 fL (80-94); Mean Platelet Vol. 9.4 fl (6.2-12.0); Monocyte# 1.73 X10^3/uL; Monocyte% 15.3 % (0-10); Neutrophil # 6.77 X10^3/uL (2.7-7.7); Neutrophil % 59.9 % (47-70); Platelet Count 246 K/mm3 (150-450); RBC Distribution Width CV 13.6 % (11.6-14.6); RBC Distribution Width SD 43.2 fl (35.1-43.9); Red Blood Count 4.42 M/mm3 (4.6-6.2); White Blood Count 11.3 K/mm3 (4.4-11.0)
[2018-06-27 05:11] VITALS: PULSE 75; RESP 14
[2018-06-27 05:12] LABS: Differential Indicated SCAN CRITERIA MET; POSITIVE COUNT NO; POSITIVE DIFFERENTIAL YES; POSITIVE MORPHOLOGY NO
[2018-06-27] MEDS: MethylPREDNISolone 125 MG/2 ML Vial IV (05:29)
[2018-06-27] MEDS: 0.9% Normal Saline 1,000 ML 150 ML IV (05:29)
[2018-06-27 05:50] LABS: Anion Gap 11 (5-15); BUN 25 mg/dL (7-18); BUN/Creat Ratio 16.2 RATIO (10-20); Calcium,Total 9.6 mg/dL (8.5-10.1); Chloride 105 mmol/L (98-107); Creatinine, Serum 1.54 mg/dL (0.70-1.30); EST Glomerular Filtration Rate 47 mL/min (>60); Est Glom Filt Rate - Afr Amer 57 mL/min (>60); Estimated Creatinine Clearance 34.38 ml/min; Glucose 132 mg/dL (74-106); Sodium Level 144 mmol/L (136-145)
[2018-06-27 06:44] VITALS: BP 145/67; PULSE 88; RESP 20; O2SAT 96
[2018-06-27] MEDS: Doxycycline 100 MG CAPSULE PO (07:11)
[2018-06-27 09:06] LABS: Bedside Glucose 234 mg/dL (70-110)
== END 2018-06-27 07:16 | disposition home or self-care (01) ==
PROVIDERS: Emergency Provider Emergency Medicine; Family Provider Family Medicine; PCP Family Medicine
DX: J40 Bronchitis, not specified as acute or chronic (principal); I25.10 Atherosclerotic heart disease of native coronary artery without angina pectoris; I10 Essential (primary) hypertension; E78.00 Pure hypercholesterolemia, unspecified; J44.9 Chronic obstructive pulmonary disease, unspecified; Z79.4 Long term (current) use of insulin; Z79.51 Long term (current) use of inhaled steroids; Z79.02 Long term (current) use of antithrombotics/antiplatelets; Z79.891 Long term (current) use of opiate analgesic; Z79.899 Other long term (current) drug therapy
CPT/HCPCS: 70360; 71046; 80048; 82962; 84484; 85025; 93005; 94640; 96361; 96374; 99285; J7030; A4216

== ENCOUNTER 2018-10-16 02:42 | Emergency (ER) | payer MEDICARE, BC, SELFPAY ==
[2018-10-16 02:43] VITALS: BP 174/77; PULSE 75; RESP 16; TEMP 36.3; O2SAT 98; BMI 32.6
--- NOTE | 2018-10-16 03:04 | ED.VISSUMM ---
- ER Visit Summary Date of Service: 10/16/18 Chief Complaint: Pain patch ran out. History of Present Illness: The patient is a [address] Dudley. His pain management doctor is Dr. Perez. He reports that he has been on a fentanyl patch for a long period of time. He states that his prior pain management doctor had him on 50 mcg fentanyl patches and told him that he could change these every 2 days. States that he got fired from that practice and that his new pain management doctor decreased him to 25 mcg patch and only gives him 10/month. He reports that he feels as though these wear off early and because of this at times he changes them prior than he should. He has a prescription for a another box of patches. However, he cannot fill it until tomorrow. Patient feels as though his fentanyl patch ran out 3 hours ago. He states that he hurts all over. He denies any focal pain. He states that this is 10 out of 10 severity. Also states that he has chills and feels like he is in opiate withdrawal. He denies any other complaints. Physical Examination: Vitals: Stable. Afebrile. General: Well-nourished and well-developed. Head: Normocephalic atraumatic. Neck: Supple, no lymphadenopathy. No JVD. Nontender. Cardiovascular: Regular rate and rhythm. No murmurs. Respiratory: No respiratory distress. Clear to auscultation bilaterally. Abdominal: Soft, nontender, nondistended, normal bowel sounds. No guarding, rebound, or peritoneal signs. Back: Nontender. Extremities: Nontender, no edema. Skin: Normal color, no rash. Neurologic: Alert and oriented ?3. Cranial nerves II through XII are intact. Normal strength and sensation. Psych: Normal affect. Emergency Department Course and Treatment: Had a prolonged discussion with the patient about being dependent on opiates. He has no desire to come off of these. I also discussed with him the fact that if he comes to the emergency department to get fentanyl patches early he is going to get fired from his pain management. He understands this and states that he cannot take the symptoms that he is currently experiencing. Patient had a new 25 mcg fentanyl patch placed. He was also given 2 oxycodone p.o. Treatment Plan: I discussed the patient that he needs to follow-up with his vehicle painter as soon as possible and speak with him about his symptoms and the potential for having an increase in his fentanyl patch or other pain medications added. I also discussed the fact it is not appropriate to come to the emerge department for management of his chronic pain. Disposition: To home in improved and stable condition. Impression: 1. Chronic pain. This note was generated with [employer] software. It may contain incorrect words, spelling, and punctuation that were not noted in review of the chart prior to signing ED Disposition - Plan for ED Patient: Disposition: Home or Assisted Living Chief Complaint: Med Refill Instructions: Common Myths About Pain Medications Additional Instructions: Follow up with your pain management Doctor as soon as possible.
[2018-10-16] MEDS: fentaNYL 25 MCG Patch TRANSDERM. (03:31)
== END 2018-10-16 03:37 | disposition home or self-care (01) ==
LOC: ED 03:13
PROVIDERS: Emergency Provider Emergency Medicine; Family Provider Family Medicine; PCP Family Medicine
DX: G89.29 Other chronic pain (principal); Z79.891 Long term (current) use of opiate analgesic
CPT/HCPCS: 99282

== ENCOUNTER 2018-11-13 10:03 | Emergency (ER) | payer MEDICARE, BC, SELFPAY ==
[2018-11-13 10:04] VITALS: PULSE 78; RESP 15; TEMP 37; O2SAT 97; BMI 24.7
--- NOTE | 2018-11-13 10:12 | RAD_ITS ---
STUDY: X-RAY CHEST REASON FOR EXAM: Male, 73 years old. Chest pain and chest pressure. TECHNIQUE: Single AP portable view of the chest. COMPARISON: Comparison is made with prior study June 27, 2018. FINDINGS: EKG electrodes are seen. Stable mild increased linear markings at the left lung base suggestive of a scarring. There is no demonstrated pleural abnormality. Normal size heart. Normal mediastinum and gracie. Normal visualized pulmonary arteries. Normal visualized aortic arch and descending thoracic aorta. There are diffuse degenerative changes of the visualized thoracic spine. Normal visualized ribs, clavicles, and shoulders. There is no demonstrated abnormality of the visualized soft tissue structures of the upper abdomen. RAD/Chest 1 View (Portable) IMPRESSION: No acute abnormality is seen. Electronically Signed: Raghav Mark MD at 10:59 EST , Service support ,
--- NOTE | 2018-11-13 10:12 | EKG12_ITS ---
Test Reason : CP Blood Pressure : / mmHG Vent. Rate : 079 BPM Atrial Rate : 079 BPM P-R Int : 178 ms QRS Dur : 078 ms QT Int : 358 ms P-R-T Axes : 017 -57 033 degrees QTc Int : 410 ms Normal sinus rhythm Left axis deviation Inferior infarct , age undetermined Abnormal ECG Confirmed by SPARKLE CLEVELAND, ELIZ ([id number]), loan expeditor BRAXTON COLLIER ([id number]) on 11/15/2018 3:10:16 PM Referred By: Confirmed By:ELIZ VILLAGRAN MD
[2018-11-13 10:20] LABS: Absolute Lymphocyte Count 1.24 X10^3/ul (0.83-4.51); Absolute Neutrophil Count 11.4 X10^3/uL (2.0-7.7); Basophil# 0.04 X10^3/uL; Basophil% 0.3 % (0-1); Eosinophil# 0.07 X10^3/uL; Eosinophils% 0.5 % (0-5); Hemoglobin 12.7 g/dl (13.0-16.5); Lymphocyte # 1.24 X10^3/ul (4.0); Lymphocyte % 8.8 % (19-41); Mean Corp Hgb Conc 33.4 g/gl (32-36); Mean Corpuscular Hgb 28.7 pg (27.0-32.0); Mean Corpuscular Volume 85.8 fL (80-94); Mean Platelet Vol. 9.3 fl (6.2-12.0); Monocyte# 1.22 X10^3/uL; Monocyte% 8.7 % (0-10); Neutrophil # 11.36 X10^3/uL (2.7-7.7); Neutrophil % 80.6 % (47-70); POSITIVE COUNT NO; POSITIVE DIFFERENTIAL NO; POSITIVE MORPHOLOGY NO; Platelet Count 230 K/mm3 (150-450); RBC Distribution Width CV 14.4 % (11.6-14.6); RBC Distribution Width SD 43.9 fl (35.1-43.9); Red Blood Count 4.43 M/mm3 (4.6-6.2); White Blood Count 14.1 K/mm3 (4.4-11.0)
[2018-11-13 10:24] VITALS: BP 99/68; PULSE 76; RESP 23; O2SAT 98
[2018-11-13 10:35] LABS: Anion Gap 8 (5-15); BUN 26 mg/dL (7-18); BUN/Creat Ratio 16.8 RATIO (10-20); Calcium,Total 8.8 mg/dL (8.5-10.1); Chloride 105 mmol/L (98-107); Creatinine, Serum 1.55 mg/dL (0.70-1.30); EST Glomerular Filtration Rate 47 mL/min (>60); Est Glom Filt Rate - Afr Amer 57 mL/min (>60); Estimated Creatinine Clearance 34.16 ml/min; Glucose 208 mg/dL (74-106); Potassium 4.3 mmol/L (3.5-5.1); Sodium Level 138 mmol/L (136-145)
[2018-11-13 11:18] VITALS: BP 112/66; PULSE 79; RESP 18; O2SAT 94
--- NOTE | 2018-11-13 11:36 | ED.VISSUMM ---
- ER Visit Summary Date of Service: 11/13/18 Chief Complaint: Chest pain History of Present Illness: The patient is a 73 M who presents by EMS for chest pain that he describes as his heart racing. It was associated with some shortness of breath. Started today around 5 AM and has currently resolved. He had similar symptoms in the past with atrial fibrillation. He does take Eliquis regularly. He has been compliant with his medications. EMS noted that he was in atrial fibrillation. He was treated with aspirin prior to arrival. On arrival at the emergency department, his symptoms have resolved. He does have a history of coronary disease, [place] and also pneumonia with sepsis. He is a smoker. He does not use oxygen. He does take prednisone among his other medications. Physical Examination: Afebrile and vital signs unremarkable. HEENT exam unremarkable. Heart regular rate and rhythm. Lungs clear in all degroot. Abdomen soft and nontender. Extremities nontender with no edema. Skin appears normal in color. Test Results: EKG showed sinus rhythm at a rate of 79. No sign of acute ischemia or infarction pattern. White count 14.1, hemoglobin 12.7, glucose 208, BUN 26, creatinine 1.55, troponin normal. Chest x-ray unremarkable. Emergency Department Course and Treatment: Patient was seen on arrival. EKG was done and unremarkable. He was placed on a monitor. Sinus rhythm. His workup as above was completely unremarkable. On reevaluation, he had no symptoms. His vitals were normal. He remained in sinus rhythm. Patient would like to go home. He does have a history of coronary disease. I suspect that he was having symptoms from atrial fibrillation. He did not have a rapid rate on the EMS EKG. His vitals were stable. He is compliant with his medications. I expressed to him that I cannot rule out a process like a heart attack, ACS without admission for further evaluation. He would like to go home. He does not want a stress test. He says he has follow-up with his doctor. I paged his doctor, Dr. Levine, and at the time of this dictation, I am waiting for his return call. Patient was advised to return if he has any new or worsening issues. Treatment Plan: As above Disposition: Discharge Impression: 1. Palpitations This note was generated with [employer] ([employer]ation software. It may contain incorrect words, spelling, and punctuation that were not noted in review of the chart prior to signing ED Disposition - Plan for ED Patient: Chief Complaint: Chest Pain Referrals: Boom Aviles [Primary Care Provider] -
--- NOTE | 2018-11-13 11:40 | ED.DCSUM_ITS ---
- ER Visit Summary Date of Service: 11/13/18 Chief Complaint: Chest pain History of Present Illness: The patient is a 73 M who presents by EMS for chest pain that he describes as his heart racing. It was associated with some shortness of breath. Started today around 5 AM and has currently resolved. He had similar symptoms in the past with atrial fibrillation. He does take Eliquis regularly. He has been compliant with his medications. EMS noted that he was in atrial fibrillation. He was treated with aspirin prior to arrival. On arrival at the emergency department, his symptoms have resolved. He does have a history of coronary disease, [place] and also pneumonia with sepsis. He is a smoker. He does not use oxygen. He does take prednisone among his other medications. Physical Examination: Afebrile and vital signs unremarkable. HEENT exam unremarkable. Heart regular rate and rhythm. Lungs clear in all degroot. Abdomen soft and nontender. Extremities nontender with no edema. Skin appears normal in color. Test Results: EKG showed sinus rhythm at a rate of 79. No sign of acute ischemia or infarction pattern. White count 14.1, hemoglobin 12.7, glucose 208, BUN 26, creatinine 1.55, troponin normal. Chest x-ray unremarkable. Emergency Department Course and Treatment: Patient was seen on arrival. EKG was done and unremarkable. He was placed on a monitor. Sinus rhythm. His workup as above was completely unremarkable. On reevaluation, he had no symptoms. His vitals were normal. He remained in sinus rhythm. Patient would like to go home. He does have a history of coronary disease. I suspect that he was having symptoms from atrial fibrillation. He did not have a rapid rate on the EMS EKG. His vitals were stable. He is compliant with his medications. I expressed to him that I cannot rule out a process like a heart attack, ACS without admission for further evaluation. He would like to go home. He does not want a stress test. He says he has follow-up with his doctor. I paged his doctor, Dr. Levine, and at the time of this dictation, I am waiting for his return call. Patient was advised to return if he has any new or worsening issues. Treatment Plan: As above Disposition: Discharge Impression: 1. Palpitations This note was generated with [employer] software. It may contain incorrect words, spelling, and punctuation that were not noted in review of the chart prior to signing ED Disposition - Plan for ED Patient: Chief Complaint: Chest Pain Referrals: Boom Aviles [Primary Care Provider] -
--- NOTE | 2018-11-13 11:40 | ED.DEP ---
ED Disposition - Plan for ED Patient: Chief Complaint: Chest Pain Instructions: ED Palpitations Additional Instructions: follow up with Dr. Levine. call today for an appointment. return for new or worsening symptoms.
[2018-11-13 12:12] VITALS: BP 116/59; PULSE 71; RESP 16; O2SAT 96
== END 2018-11-13 12:12 | disposition home or self-care (01) ==
LOC: ED 10:36
PROVIDERS: Emergency Provider Emergency Medicine; Family Provider Family Medicine; PCP Family Medicine
DX: R00.2 Palpitations (principal); I48.91 Unspecified atrial fibrillation; I25.10 Atherosclerotic heart disease of native coronary artery without angina pectoris; I25.2 Old myocardial infarction; F17.200 Nicotine dependence, unspecified, uncomplicated; Z79.4 Long term (current) use of insulin; Z79.02 Long term (current) use of antithrombotics/antiplatelets; Z79.52 Long term (current) use of systemic steroids; Z79.51 Long term (current) use of inhaled steroids; Z79.891 Long term (current) use of opiate analgesic; Z79.899 Other long term (current) drug therapy
CPT/HCPCS: 71045; 80048; 84484; 85025; 93005; 99285; J7030

== ENCOUNTER 2019-03-20 11:11 | Emergency (ER) | payer MEDICARE, BC, SELFPAY ==
[2019-03-20 11:12] VITALS: BP 119/69; PULSE 78; RESP 18; TEMP 36.4; O2SAT 96; BMI 32.0
--- NOTE | 2019-03-20 11:30 | ED.DCSUM_ITS ---
History of Present Illness Chief Complaint: Other, Pain/Inj Detail of Chief Complaint: Exacerbation of chronic pain Informant: Patient, Family Onset: Today Context: Sudden Onset Timing: Continuous Quality: Pain from his head to his toes Location: entire body Current Severity: Severe Maximum Severity: Severe Worsened by: Patient believes because he was weaned off fentanyl patch Relieved by: Nothing Associated Symptoms: None Narrative: Patient is an elderly male with history of chronic pain syndrome, chronic back pain and other mentions of chronic pain in his medical records who presents because of exacerbation of his chronic pain. He has had chronic pain for greater than 5 years. He recently was weaned off of fentanyl and is presently on morphine. He is seen by a pain management physician in [place]. He does not recall his name. He has not taken anything in addition to his prescribed medication. He has no other complaints review of systems other than pain is negative Prior similar symptoms: Yes Recent Illness/Hospitalization: Yes - Past Medical History (1) Atrial fibrillation with RVR Status: Acute (2) NSTEMI (non-ST elevated myocardial infarction) Status: Acute (3) Chronic back pain Status: Chronic (4) Chronic pain syndrome Status: Chronic (5) coronary artery disease Status: Chronic Comment: status post stent in 10/2013, following with Dr. Levine/ (6) diabetes mellitus type II Status: Chronic (7) hypertension Status: Chronic Past Medical History - Allergies and Home Meds Allergies/Adverse Reactions: Allergies adhesive Allergy (Unknown, Verified 03/20/19 11:15) Unknown [facility] choline fenofibrate [From Trilipix] Allergy (Unknown, Verified 03/20/19 11:15) Unknown [facility] pregabalin [From Lyrica] Allergy (Unknown, Verified 03/20/19 11:15) Unknown [facility] Xlruqil-Lcf-Jwx Reductase Inhibitor Allergy (Unknown, Verified 03/20/19 11:15) Unknown [facility] Sulfa (Sulfonamide Antibiotics) Allergy (Verified 03/20/19 11:15) Itching vancomycin Allergy (Verified 03/20/19 11:15) Itching Primary Care Physician: Boom Aviles [Primary Care Provider] - Prior records reviewed: Yes Surgical History: herniorrhaphy, - - rotator cuff repair, hernia repair. Lives: Alone Smoking Status: Never smoker Alcohol: None - Family History Paternal Family History: Reports: Cancer Maternal Family History: Reports: No pertinent history Review of Systems General: Denies: Chills, Fever, Malaise, Subjective, Sweats, Weight loss Eyes: Denies: Visual changes - bilaterally, Blurred Vision - bilaterally, Diplopia ENT: Denies: Rhinorrhea, Sore throat Cardiovascular: Denies: Chest pain, Palpitations, Heart racing Respiratory: Denies: Dyspnea, Cough, Dyspnea on exertion Gastrointestinal: Denies: Abdominal pain, Nausea, Vomiting, Diarrhea, Melena, Hematochezia Genitourinary: Denies: Dysuria, Hematuria, Frequency Musculoskeletal: Reports: Myalgias, Arthralgias, Neck pain, Back pain, Extremity Pain. Denies: Swelling Skin: Denies: Rash, Wounds Neurological: Denies: Headache, Weakness, Numbness Psych: Denies: Anxiety Hematologic: Denies: Easy bruising, Easy bleeding Physical Exam Vital Signs/Narrative: Vital Signs Temp Pulse Resp BP Pulse Ox 03/20/19 11:12 97.6 F L 78 18 119/69 96 Inital Vital Signs reviewed: Yes General: Well nourished, Well developed, No Acute Distress Head: Normocephalic, Atraumatic Eyes: Perrl, EOMI ENT: Moist mucous membranes, No rhinorrhea Neck: Supple, Nontender Cardiovascular: Regular rate, Regular rhythm, No murmurs Respiratory: No distress, CTA bilaterally, Chest nontender Abdomen: Soft, Nontender, Nondistended, Normal bowel sounds Back: Nontender, Normal Inspection Extremities: Nontender, No edema, - - Is no deformity, swelling, warmth or erythema of joints. Skin: Normal color, No rash, No Trauma. Negative for: Cyanosis, Diaphoresis, Jaundice Neurological: Alert, Oriented x3, Cranial nerves II-XII grossly intact, Normal Strength, Normal Sensation, Normal DTR Psychological: Normal affect, Normal Mood Diagnostic/Tx/Re-eval - Medical Decision Making Patient presents with exacerbation of his chronic pain. He is under the care of a pain management physician. He was recently prescribed morphine and fentanyl was weaned. He believes his pain is worse because he is no longer on fentanyl patch. He has no other complaints. Patient was informed he would receive p.o. medication. He states last time he was here he received more medication. He was informed since his pain is greater than 5 years and he is under the care of a pain management physician and he has no other symptoms other than his chronic generalized nonspecific pain he would receive a dose of oxycodone and he is to follow-up with his pain management physician. He was informed based on his history and physical exam no testing is needed and parenteral medication does not work any more quickly than oral. Patient again informed me that he was treated differently last time he was here. I informed him that based on what he is told me and the fact that there is no objective findings he would receive a dose of an oral medication since it does not work any more quickly than a shot. ED Disposition - Plan for ED Patient: Disposition: Home or Assisted Living Diagnosis: Chronic generalized pain Referrals: Boom Aviles [Primary Care Provider] - Additional Instructions: Recommend contacting your primary care physician or your pain management physician regarding your concerns and management of your chronic pain.
--- NOTE | 2019-03-20 11:32 | ED.DCSUM_ITS ---
- ER Visit Summary Date of Service: 03/20/19 Chief Complaint: [] History of Present Illness: The patient is a 73 M [] Physical Examination: [] Test Results: [] Emergency Department Course and Treatment: [] Treatment Plan: [] Disposition: [] Impression: [] This note was generated with [employer] dictation software. It may contain incorrect words, spelling, and punctuation that were not noted in review of the chart prior to signing ED Disposition - Plan for ED Patient: Instructions: ED Chronic Pain Management Referrals: Boom Aviles [Primary Care Provider] - Additional Instructions: Recommend contacting your primary care physician or your pain management physician regarding your concerns and management of your chronic pain.
[2019-03-20] MEDS: oxyCODONE 5 MG Tablet 10 MG PO (12:02)
== END 2019-03-20 12:08 | disposition home or self-care (01) ==
PROVIDERS: Emergency Provider Emergency Medicine; Family Provider Family Medicine; PCP Family Medicine
DX: G89.4 Chronic pain syndrome (principal); I48.91 Unspecified atrial fibrillation; I25.2 Old myocardial infarction; I25.10 Atherosclerotic heart disease of native coronary artery without angina pectoris; E11.9 Type 2 diabetes mellitus without complications; I10 Essential (primary) hypertension
CPT/HCPCS: 99283

== ENCOUNTER 2019-11-04 17:27 | Inpatient (IN) | payer MEDICARE, BC, SELFPAY ==
[2019-11-04 17:28] VITALS: BP 178/88; PULSE 64; RESP 17; TEMP 37; O2SAT 97; BMI 33.7
--- NOTE | 2019-11-04 18:03 | ED.VISSUMM ---
- ER Visit Summary Date of Service: 11/04/19 Chief Complaint: Left lower back pain History of Present Illness: The patient is a 74 M history of chronic pain, insulin-dependent diabetes, CAD with a cardiac stent on Eliquis and renal insufficiency. The patient states he has chronic pain for which he takes home morphine he sees a pain management doctor in [place]. States today he has had left lower back pain. Denies any nausea, vomiting or diarrhea. No dysuria or hematuria. No fever. Said it hurts more walk. His son had to come to his home and help him get up. He did take 15 mg of morphine at home which is helped his symptoms but he still has pain. He denies any abdominal pain. There is been no falls or trauma. Physical Examination: Older male no acute distress vital signs stable afebrile. H EENT exam unremarkable. Neck nontender no lymphadenopathy. Lungs clear to auscultation bilaterally. Heart regular rhythm no murmur. Abdomen is soft nontender normal bowel sounds no peritoneal signs. Extremities moves all 4. Neurovascular intact. He is able to stand and bear his own weight. Back is spine is nontender. No ecchymosis or bruising. No signs of trauma. His left SI joint is tender to palpation but negative straight leg raise. Both lower extremities neurovascular intact with dorsi plantarflexion. No cauda equina. No saddle anesthesia. Normal medial thigh sensation. Neurologic is awake and alert with no focal motor deficits. Test Results: CBC white count 12.2. Hemoglobin 10.8 is his baseline chronic anemia. Chemistries unremarkable creatinine 1.7 consistent with chronic renal insufficiency. Glucose 235. Normal gap. UA negative. Emergency Department Course and Treatment: Patient treated with IV morphine and Zofran. Due to him possibly needs to be admitted I did do screening labs and urinalysis by think this is purely musculoskeletal back pain. Treatment Plan: Patient's son is concerned because the patient has by himself and he does exhibit care for himself or get up and walk around the house with his pain. Patient being medicated with IV morphine and Zofran. That will be reassessed. Disposition: Alon exam 1913 p.m. his pain somewhat better after the IV morphine. Nurses got try to walk him a second time and he can only go a few steps and then needs to sit down due to the pain. Given his age and the pain and speaking to his son and the patient then with a can go home and take care of himself. I spoken to the hospitalist about admission for physical therapy and further evaluation. Impression: Acute on chronic pain Acute left sciatica Failure to thrive History of CAD with stents on Eliquis History of insulin-dependent diabetes. History of renal insufficiency History of chronic pain This note was generated with [employer] dictation software. It may contain incorrect words, spelling, and punctuation that were not noted in review of the chart prior to signing ED Disposition - Plan for ED Patient: Referrals: Boom Aviles [Primary Care Provider] -
[2019-11-04 18:12] LABS: Bacteria 0 SEEN /hpf (None Seen); Mucous, Urine 0 SEEN /hpf (<or=2+); Red Blood Cells-Urine 0 SEEN /hpf (0-5); Squamous Epithelial Cells - UA 0 SEEN /hpf (0-5); White Blood Cells 0 SEEN /hpf (0-5)
[2019-11-04 18:15] LABS: Color, Urine Yellow (Yellow); Glucose, Dipstick Normal (Normal); Ketone-Dipstick Negative (Negative); Leukocyte Esterase-Dipstick Negative /ul (Negative); Nitrite-Dipstick Negative (Negative); Occult Blood-Urine Negative /ul (Negative); Protein-Dipstick Negative (Negative); Specific Gravity, Urine 1.015 (1.002-1.030); Urine Bilirubin Dipstick Negative (Negative); Urine Clarity Sl. Cloudy (Clear); Urine Urobilinogen Normal (Normal)
[2019-11-04 18:20] LABS: Absolute Lymphocyte Count 1.83 X10^3/uL (0.83-4.51); Absolute Neutrophil Count 8.7 X10^3/uL (2.0-7.7); Basophil# 0.05 X10^3/uL; Basophil% 0.4 % (0-1); Eosinophil# 0.08 X10^3/uL; Eosinophils% 0.7 % (0-5); Hematocrit 37.5 % (40-54); Hemoglobin 11.8 g/dL (13.0-16.5); Lymphocyte # 1.83 X10^3/ul (4.0); Mean Corp Hgb Conc 31.5 g/dL (32-36); Mean Corpuscular Hgb 25.7 pg (27.0-32.0); Mean Corpuscular Volume 81.7 fL (80-94); Mean Platelet Vol. 8.7 fl (6.2-12.0); Monocyte# 1.35 X10^3/uL; NRBC Flagged by Analyzer 0 % (0-5); Neutrophil # 8.66 X10^3/uL (2.7-7.7); Neutrophil % 70.9 % (47-70); Platelet Count 238 K/mm3 (150-450); RBC Distribution Width CV 15.1 % (11.6-14.6); RBC Distribution Width SD 44.8 fl (35.1-43.9); Red Blood Count 4.59 M/mm3 (4.6-6.2); White Blood Count 12.2 K/mm3 (4.4-11.0)
[2019-11-04] MEDS: Ondansetron 4 MG/2 ML Vial IV (18:23)
[2019-11-04] MEDS: Morphine 4 MG/ML Syringe 6 MG IV (18:23)
[2019-11-04 18:35] LABS: Anion Gap 4 (5-15); BUN 27 mg/dL (7-18); BUN/Creat Ratio 15.2 RATIO (10-20); Calcium,Total 9.3 mg/dL (8.5-10.1); Chloride 103 mmol/L (98-107); Creatinine, Serum 1.78 mg/dL (0.70-1.30); EST Glomerular Filtration Rate 40 mL/min (>60); Est Glom Filt Rate - Afr Amer 48 mL/min (>60); Glucose 235 mg/dL (74-106); Potassium 4.3 mmol/L (3.5-5.1); Sodium Level 138 mmol/L (136-145)
--- NOTE | 2019-11-04 19:35 | HP.PCM_ITS ---
Problem List (1) Acute exacerbation of chronic low back pain Status: Chronic (2) Chronic back pain Status: Chronic Qualifiers: Back pain laterality: unspecified Sciatica laterality: sciatica laterality unspecified (3) Chronic pain syndrome Status: Chronic (4) Chronic pain Status: Chronic (5) Paroxysmal atrial fibrillation Status: Chronic (6) NSTEMI (non-ST elevated myocardial infarction) Status: Chronic (7) hypertension Status: Chronic (8) diabetes mellitus type II Status: Chronic (9) coronary artery disease Status: Chronic Comment: status post stent in 10/2013, following with Dr. Levine/ History of Present Illness Date of Admission: 11/04/19 Chief Complaint: lower back pain The patient is a 74 year old M with a history of CKD; type 2 diabetes; CAD with stent; and chronic back pain who sees a pain management at [place] presenting because of excruciating lower back pain that started on the same day of presentation. Because of the back pain patient is unable to walk. The pain radiates to his left hip. He described the pain as sharp. The pain worsens with standing up and walking. The pain improves with rest. Patient lives at home and because he could not function by himself secondary to the pain admission was considered. Past Medical History Past Medical History (Chronic Problems): Chronic Problems Acute exacerbation of chronic low back pain (Chronic) Chronic back pain (Chronic) Chronic pain syndrome (Chronic) Chronic pain (Chronic) Paroxysmal atrial fibrillation (Chronic) NSTEMI (non-ST elevated myocardial infarction) (Chronic) hypertension (Chronic) diabetes mellitus type II (Chronic) coronary artery disease (Chronic) status post stent in 10/2013, following with Dr. Levine/ Allergies adhesive Allergy (Unknown, Verified 11/04/19 17:27) Unknown [facility] choline fenofibrate [From Trilipix] Allergy (Unknown, Verified 11/04/19 17:27) Unknown [facility] pregabalin [From Lyrica] Allergy (Unknown, Verified 11/04/19 17:27) Unknown [facility] Bhwxyyd-Yab-Ybs Reductase Inhibitor Allergy (Unknown, Verified 11/04/19 17:27) Unknown [facility] Sulfa (Sulfonamide Antibiotics) Allergy (Verified 11/04/19 17:27) Itching vancomycin Allergy (Verified 11/04/19 17:27) Itching Home Medications: Ambulatory Orders Medication Instructions Recorded Carvedilol [Coreg (Beta Rui)] 25 mg PO DAILY 06/14/14 Pantoprazole Sodium [Protonix] 40 mg PO DAILY 06/14/14 Insulin Detemir [Levemir FlexPen] 36 units SC QHS 08/30/14 Albuterol Inhaler [Ventolin Hfa] 1 - 2 puff INHALATION Q4H PRN PRN 10/08/17 #1 inhaler Cholecalciferol (VIT D3) [Vitamin 1,000 unit PO DAILY 10/08/17 D3] Furosemide [Lasix] 40 mg PO BREAKFAST 10/08/17 Insulin Lispro [Humalog KwikPen] 34 unit SQ TIDCM 10/08/17 Isosorbide Mononitrate [Isosorbide 30 mg PO DAILY 10/08/17 Mononitrate ER] Lactulose 15 ml PO TID 10/08/17 Apixaban [Eliquis] 5 mg PO BID 02/25/18 Vit C/Vit E AC/Lut/Copper/Zinc 1 each PO BID 05/05/18 [Preservision Lutein Softgel] Prednisone [Deltasone] 10 mg PO DAILY 11/13/18 Alendronate Sodium 70 mg PO DAILY 11/04/19 Morphine Sulfate 15 mg PO TID PRN PRN 11/04/19 Surgical History: herniorrhaphy, - - rotator cuff repair, hernia repair. Lives: Alone Smoking Status: Never smoker - *Family History Paternal History Items: Cancer, Diabetes Maternal History Items: Diabetes, Heart Disease Review of Systems Constitutional: Denies: Chills, Fever, Weight Change HEENT: Denies: Head Aches, Sinus Congestion, Sinus Drainage Cardiovascular: Denies: Chest Pain, Palpitations Respiratory: Denies: Cough, Shortness of breath at rest, Sputum production Gastrointestinal: Denies: Abdominal Pain, Nausea, Vomiting Genitourinary: Denies: Dysuria Musculoskeletal: Reports: Back Pain, Joint Pain Skin: Denies: Rash, Wounds Neurological: Denies: Numbness, Tingling, Focal weakness Psychiatric: Denies: Anxiety, Depression, Homicidal Ideations, Suicidal Ideations Hematologic/ Lymphatic: Denies: Easy Bruising, Easy Bleeding VTE Information - Inpt Only VTE Present on Admission: No VTE Mechan Device Prophylaxis: None VTE Pharm Prophylaxis ordered?: No Reason prophylaxis not ordered:: Treatment Not Indicated - Continue Eliquis for A. fib - Physical Exam Vitals/I&O's: Vital Signs Temp Pulse Resp BP Pulse Ox 98.6 F 64 17 178/88 H 97 11/04/19 17:28 11/04/19 17:28 11/04/19 17:28 11/04/19 17:28 11/04/19 17:28 Oxygen Delivery Method Room Air Weight: 86.5 kg Body Mass Index (BMI) 33.7 Finger Stick Blood Glucose 131 General: Alert, Oriented x3, Cooperative HEENT: Atraumatic, PERRLA, EOMI, Normocephalic Neck: Supple, No JVD, Negative Carotid Bruits Lungs: Clear to auscultation, Normal air movement Cardiovascular: Regular rate, No murmurs Abdomen: Bowel Sounds Present, Soft, Non Tender Extremities: Capillary Refill Less than 3 Seconds, Edema - Left lower leg., Tenderness - With moving left lower extremity. Skin: No rashes, No breakdown Musculoskeletal: No Tenderness to Palpation of Joints or Extremities Neurological: Cranial nerves II-XII grossly intact Psych/Mental Status: Normal Affect, Appropriate Laboratory Results 11/04/19 18:07: Urine Color Yellow, Urine Clarity Sl. Cloudy, Urine pH 6.0, Ur Specific [place] 1.015, Urine Protein Negative, Urine Glucose (UA) Normal, Urine Ketones Negative, Urine Occult Blood Negative, Urine Nitrite Negative, Urine Bilirubin Negative, Urine Urobilinogen Normal, Ur Leukocyte Esterase Negative, Urine RBC 0 SEEN, Urine WBC 0 SEEN, Ur Squamous Epith Cells 0 SEEN, Urine Bacteria 0 SEEN, Urine Mucus 0 SEEN 11/04/19 18:10: WBC 12.2 H, RBC 4.59 L, Hgb 11.8 L, Hct 37.5 L, MCV 81.7, MCH 25.7 L, MCHC 31.5 L, RDW Std Deviation 44.8 H, RDW Coeff of Maria Luisa 15.1 H, Plt Count 238, MPV 8.7, Immature Gran % (Auto) 2.000 H, Neut % (Auto) 70.9 H, Lymph % (Auto) 15.0 L, Cobb % (Auto) 11.0 H, Eos % (Auto) 0.7, Baso % (Auto) 0.4, Absolute Neuts (auto) 8.7 H, Absolute Lymphs (auto) 1.83, Nucleated RBC % 0 11/04/19 18:10: Sodium 138, Potassium 4.3, Chloride 103, Carbon Dioxide 31.0, Anion Gap 4 L, BUN 27 H, Creatinine 1.78 H, Estim Creat Clear Calc 29.30, Est GFR (MDRD) Af Amer 48 L, Est GFR (MDRD) Non-Af 40 L, BUN/Creatinine Ratio 15.2, Glucose 235 H, Calcium 9.3 Assessment/Plan All Active Problems Encephalopathy acute (Resolved) Pneumonia (Resolved) Severe sepsis with acute organ dysfunction (Resolved) The patient is a 74 year old M with a history of CKD; type 2 diabetes; CAD with stent; and chronic back pain who sees a pain management at [place], [place] presenting because of excruciating lower back pain that started on the same day of presentation Acute on chronic lower back pain Received morphine 6 mg IV x1 at the emergency department. Will resume patient home morphine. Discontinue home prednisone 10 mg daily and put on Decadron. PT and OT to work with patient. Antiemetics and bowel regimen in the setting of narcotic use. Diabetes mellitus with acute hyperglycemia. On presentation his blood glucose was severe elevated. Home basal insulin continued. In the hospital setting will de-escalate home prandial insulin to lower dose and add correction scale insulin. Accu-Chek QA CHS. Paroxysmal A. fib On presentation patient was in sinus rhythm Coreg continued Eliquis continued JAQUI on CKD From [facility], CR 08/12/2019 was 1.31 and; creatinine on 07/04/2019 was 1.1. On this presentation creatinine was 1.78 BUN/Creatinine is 15.2 pointing towards intrinsic renal. Hold Lasix and give gentle IV hydration. Avoid nephrotoxic's. Hypertension On presentation his blood pressure was not within goal Imdur continued. Hold Lasix. Add PRN hydralazine. DVT Prophylaxis Eliquis for A. fib continued Code Visit Inpatient E&M: 20041 Init Hosp L3
[2019-11-04 19:44] VITALS: BP 141/83; PULSE 67; RESP 18; O2SAT 96
[2019-11-04 19:59] VITALS: BP 164/80; PULSE 68; RESP 18; TEMP 37; O2SAT 95
[2019-11-04 20:27] VITALS: BMI 32.0; BMI 32.1
[2019-11-04 20:47] VITALS: BP 140/72; PULSE 79; RESP 16; TEMP 37.1; O2SAT 93
[2019-11-04 22:01] LABS: Bedside Glucose 245 mg/dL (70-110)
[2019-11-04] MEDS: 0.9% Saline Lock 10 ML Syringe IV (22:08)
[2019-11-04] MEDS: 0.9% Normal Saline 1,000 ML 75 ML IV (22:08)
[2019-11-04] MEDS: dexAMETHasone 4 MG Tablet PO (22:10)
[2019-11-04] MEDS: Lactulose 20 GM/30 ML UDC 15 GM PO (22:10)
[2019-11-04] MEDS: APIXABAN 5 MG TABLET PO (22:10)
[2019-11-04] MEDS: MELATONIN 3 MG TABLET PO (22:10)
[2019-11-04] MEDS: Insulin Lispro 100 UNIT/ML INSULN.PEN SC (22:11)
[2019-11-04] MEDS: morphine (oral solution) 10MG/0.5ML Syringe 15 MG PO (22:56)
[2019-11-05] MEDS: Acetaminophen 325 MG Tablet 650 MG PO (01:59)
[2019-11-05 02:00] VITALS: BP 147/85; PULSE 67; RESP 18; TEMP 36.6; O2SAT 94
[2019-11-05] MEDS: morphine (oral solution) 10MG/0.5ML Syringe 15 MG PO ×3 (05:29→17:49)
[2019-11-05] MEDS: Lactulose 20 GM/30 ML UDC 15 GM PO ×3 (05:30→20:55)
[2019-11-05] MEDS: dexAMETHasone 4 MG Tablet PO ×3 (05:30→17:41)
[2019-11-05 06:00] LABS: Absolute Lymphocyte Count 1.01 X10^3/uL (0.83-4.51); Absolute Neutrophil Count 8.8 X10^3/uL (2.0-7.7); Basophil# 0.04 X10^3/uL; Basophil% 0.4 % (0-1); Eosinophil# 0.03 X10^3/uL; Eosinophils% 0.3 % (0-5); Hematocrit 37.5 % (40-54); Hemoglobin 11.6 g/dL (13.0-16.5); Lymphocyte # 1.01 X10^3/ul (4.0); Lymphocyte % 9.7 % (19-41); Mean Corp Hgb Conc 30.9 g/dL (32-36); Mean Corpuscular Hgb 25.3 pg (27.0-32.0); Mean Corpuscular Volume 81.7 fL (80-94); Mean Platelet Vol. 9.1 fl (6.2-12.0); Monocyte# 0.35 X10^3/uL; Monocyte% 3.4 % (0-10); NRBC Flagged by Analyzer 0 % (0-5); Neutrophil # 8.78 X10^3/uL (2.7-7.7); Neutrophil % 84.2 % (47-70); Platelet Count 217 K/mm3 (150-450); RBC Distribution Width CV 15.1 % (11.6-14.6); RBC Distribution Width SD 44.9 fl (35.1-43.9); Red Blood Count 4.59 M/mm3 (4.6-6.2); White Blood Count 10.4 K/mm3 (4.4-11.0)
[2019-11-05 06:27] LABS: Anion Gap 5 (5-15); BUN 24 mg/dL (7-18); BUN/Creat Ratio 15.1 RATIO (10-20); Calcium,Total 8.7 mg/dL (8.5-10.1); Chloride 106 mmol/L (98-107); Creatinine, Serum 1.59 mg/dL (0.70-1.30); EST Glomerular Filtration Rate 45 mL/min (>60); Est Glom Filt Rate - Afr Amer 55 mL/min (>60); Glucose 273 mg/dL (74-106); Sodium Level 138 mmol/L (136-145)
[2019-11-05] MEDS: CLARIFY ORDER 1 EACH NOTE (06:36)
[2019-11-05 06:50] LABS: Bedside Glucose 268 mg/dL (70-110)
[2019-11-05] MEDS: Insulin Lispro 100 UNIT/ML INSULN.PEN SC ×4 (08:30→20:58)
[2019-11-05] MEDS: Insulin Lispro 100 UNIT/ML INSULN.PEN 25 UNIT SC ×3 (08:31→17:40)
[2019-11-05] MEDS: Multivitamins,Ther W-Minerals Tablet 1 TABLET PO (08:32)
[2019-11-05] MEDS: Glucerna Shake 120 ML LIQUID PO ×3 (08:34→17:39)
[2019-11-05 08:44] VITALS: BP 154/91; PULSE 86; RESP 18; TEMP 36.6; O2SAT 98
[2019-11-05] MEDS: Pantoprazole Sodium 40 MG Tablet PO (09:00)
[2019-11-05] MEDS: Isosorbide Mononitrate 30 MG Tablet PO (09:00)
[2019-11-05] MEDS: Carvedilol 25 MG Tablet PO (09:00)
[2019-11-05] MEDS: APIXABAN 5 MG TABLET PO ×2 (09:00→21:00)
--- NOTE | 2019-11-05 10:34 | PN_ITS ---
Reason for Visit: Back pain Subjective: Still with left sided back pain radiating to groin. No bowel or bladder incontinence. Vitals/I&O's: Vital Signs Temp Pulse Resp BP Pulse Ox 36.6 C 86 18 154/91 H 98 11/05/19 08:44 11/05/19 08:44 11/05/19 08:44 11/05/19 08:44 11/05/19 08:44 Oxygen Delivery Method Room Air Weight: 82.2 kg Body Mass Index (BMI) 32.1 Finger Stick Blood Glucose 131 Intake and Output for Last 24 Hours 11/03/19 11/04/19 11/05/19 23:59 23:59 23:59 Output Total 1000 / 1000 Balance -1000 / -1000 General: Alert, No apparent distress HEENT: Atraumatic, Normocephalic Extremities: No edema, No Calf Tenderness Skin: No rashes, No breakdown Musculoskeletal: Tenderness - over lower left paraspinal muscle Neurological: - - difficulty standing due to back pain. unable to walk due to pain. Psych/Mental Status: Normal Affect, Appropriate Laboratory Results 11/04/19 18:07: Urine Color Yellow, Urine Clarity Sl. Cloudy, Urine pH 6.0, Ur Specific [place] 1.015, Urine Protein Negative, Urine Glucose (UA) Normal, Urine Ketones Negative, Urine Occult Blood Negative, Urine Nitrite Negative, Urine Bilirubin Negative, Urine Urobilinogen Normal, Ur Leukocyte Esterase Negative, Urine RBC 0 SEEN, Urine WBC 0 SEEN, Ur Squamous Epith Cells 0 SEEN, Urine Bacteria 0 SEEN, Urine Mucus 0 SEEN 11/04/19 18:10: WBC 12.2 H, RBC 4.59 L, Hgb 11.8 L, Hct 37.5 L, MCV 81.7, MCH 25.7 L, MCHC 31.5 L, RDW Std Deviation 44.8 H, RDW Coeff of Maria Luisa 15.1 H, Plt Count 238, MPV 8.7, Immature Gran % (Auto) 2.000 H, Neut % (Auto) 70.9 H, Lymph % (Auto) 15.0 L, Long % (Auto) 11.0 H, Eos % (Auto) 0.7, Baso % (Auto) 0.4, Absolute Neuts (auto) 8.7 H, Absolute Lymphs (auto) 1.83, Nucleated RBC % 0 11/04/19 18:10: Sodium 138, Potassium 4.3, Chloride 103, Carbon Dioxide 31.0, Anion Gap 4 L, BUN 27 H, Creatinine 1.78 H, Estim Creat Clear Calc 29.30, Est GFR (MDRD) Af Amer 48 L, Est GFR (MDRD) Non-Af 40 L, BUN/Creatinine Ratio 15.2, Glucose 235 H, Calcium 9.3 11/04/19 21:14: POC Glucose 245 H 11/05/19 05:34: WBC 10.4, RBC 4.59 L, Hgb 11.6 L, Hct 37.5 L, MCV 81.7, MCH 25.3 L, MCHC 30.9 L, RDW Std Deviation 44.9 H, RDW Coeff of Maria Luisa 15.1 H, Plt Count 217, MPV 9.1, Immature Gran % (Auto) 2.000 H, Neut % (Auto) 84.2 H, Lymph % (Auto) 9.7 L, Long % (Auto) 3.4, Eos % (Auto) 0.3, Baso % (Auto) 0.4, Absolute Neuts (auto) 8.8 H, Absolute Lymphs (auto) 1.01, Nucleated RBC % 0 11/05/19 05:34: Sodium 138, Potassium 5.0, Chloride 106, Carbon Dioxide 27.0, Anion Gap 5, BUN 24 H, Creatinine 1.59 H, Estim Creat Clear Calc 32.80, Est GFR (MDRD) Af Amer 55 L, Est GFR (MDRD) Non-Af 45 L, BUN/Creatinine Ratio 15.1, Glucose 273 H, Calcium 8.7 11/05/19 06:34: POC Glucose 268 H Current Medications Acetaminophen (Tylenol) 650 mg PO Q6H PRN PRN PRN Reason: pain 1-10/T>100.4F Last Admin: 11/05/19 01:59 Dose: 650 mg Documented by: Albuterol Sulfate (Ventolin Aerosols) 2.5 mg INHALATION Q2H PRN PRN PRN Reason: sob/wheezing Alendronate Sodium (Fosamax) 70 mg PO Luu@0600 [facility] Apixaban (Eliquis) 5 mg PO BID [facility] Last Admin: 11/05/19 09:00 Dose: 5 mg Documented by: Bisacodyl (Dulcolax) 5 mg PO DAILY PRN PRN PRN Reason: Constipation Carvedilol (Coreg) 25 mg PO DAILY [facility] Last Admin: 11/05/19 09:00 Dose: 25 mg Documented by: Cholecalciferol (Vitamin D) 1,000 unit PO DAILY [facility] Last Admin: 11/05/19 09:00 Dose: 1,000 unit Documented by: Dexamethasone (Decadron) 4 mg PO Q6 [facility] Last Admin: 11/05/19 05:30 Dose: 4 mg Documented by: Glucagon () 1 mg IM .X1 PRN PRN Reason: Hypoglycemia Hydralazine HCl (Apresoline Iv) 5 mg IV Q4H PRN PRN PRN Reason: SBP > 160 Dextrose (Dextrose 10%-Water) 250 mls @ 999 mls/hr IV .Q16M PRN; Protocol PRN Reason: HYPOGLYCEMIA Sodium Chloride () 1,000 mls @ 75 mls/hr IV .[id number] [facility] Last Admin: 11/04/19 22:08 Dose: 75 mls/hr Documented by: Insulin Glargine (Lantus (Bkc)) 36 units SC QHS [facility] Last Admin: 11/04/19 22:11 Dose: 36 u Documented by: Insulin Human Lispro (Humalog Kwikpen (Bkc)) 0 unit SC ACHS [facility]; Protocol Last Admin: 11/05/19 08:30 Dose: 2 u Documented by: Insulin Human Lispro (Humalog Kwikpen (Bkc)) 25 unit SC TIDCM [facility] Last Admin: 11/05/19 08:31 Dose: 25 u Documented by: Isosorbide Mononitrate (Imdur) 30 mg PO DAILY [facility] Last Admin: 11/05/19 09:00 Dose: 30 mg Documented by: Lactulose (Chronulac, Cephulac) 15 gm PO TID [facility] Last Admin: 11/05/19 05:30 Dose: 15 gm Documented by: Melatonin (Melatonin) 3 mg PO QHS PRN PRN PRN Reason: INSOMNIA Last Admin: 11/04/19 22:10 Dose: 3 mg Documented by: Morphine Sulfate (Roxanol (Ir Oral Solution)) 15 mg PO Q6H PRN PRN PRN Reason: Pain Score 6-10/10 Last Admin: 01/22/20 05:29 Dose: 15 mg Documented by: Multivitamins/Minerals (Multivitamin With Minerals) 1 tablet PO DAILY@0800 [facility] Last Admin: 11/05/19 08:32 Dose: 1 tablet Documented by: Nutritional Formula (Lactose Free) (Glucerna Shake) 120 ml PO TIDCM [facility] Last Admin: 11/05/19 08:34 Dose: 120 ml Documented by: Ondansetron HCl (Zofran) 4 mg IV Q6H PRN PRN PRN Reason: NAUSEA/VOMITING Pantoprazole Sodium (Protonix) 40 mg PO DAILY [facility] Last Admin: 11/05/19 09:00 Dose: 40 mg Documented by: Senna/Docusate Sodium (Senokot-S, Traci-Colace) 2 tablet PO BID PRN PRN PRN Reason: Constipation Sodium Chloride () 10 ml IV PRN PRN PRN Reason: IV FLUSH Last Admin: 11/04/19 22:08 Dose: 10 ml Documented by: STROKE Vital Signs/Narrative: Vital Signs Temp Pulse Resp BP Pulse Ox 11/05/19 08:44 36.6 C 86 18 154/91 H 98 Medical Necessity - Tobacco Use Smoking Status: Never smoker Assessment/Plan All Active Problems Encephalopathy acute (Resolved) Pneumonia (Resolved) Severe sepsis with acute organ dysfunction (Resolved) 1. back pain, acute * likely 2/2 muscle strain (paraspinal) * add cyclobenzaprine, schedule acetaminophen. * No NSAIDs since on apixaban 2. chronic pain * pain said it is for pain all over. I asked if he has fibromyalgia, he said he does, but I am not sure he actually does. * continue morphine. No additional narcotics. 3. Debility: * PT OT 4. VTE proph: low risk as already on anticoagulation. Code Visit Inpatient E&M: 26740 Subs Hosp L2
--- NOTE | 2019-11-05 10:40 | CASEMGMT ---
RN CM Face to Face with patient for initial transition planning/care coordination assessment. RN CM introduced self and role at [facility]. Patient lying in bed, alert and oriented. Patient willing to participate in assessment and is able to answer all questions appropriately. Care providers, pharmacy, and demographics verified. Patient wishes to discharge home, denies need for home health at this time. Patient states he has no further needs or concerns at this time. CM to follow for discharge planning needs that may arise. PCP: Stefan Specialists: Gladys, endocrinology; Ladarius, pain management [facility]erred [facility]acy: [facility] Insurance: [employer] Prescription Benefit: yes Living Will/HPOA: yes, son Sarah Barraza LNOK: son Living Arrangements: Patient lives alone in mobile home with 3-4 steps and railing to enter the home. Transportation: self/son DME/HHC: Patient has cane, grab bars, glucometer at home. Patient has done outpatient therapy at [facility]. Disposition Plan: Patient to discharge home with family support and follow-up plans in place. Nga LEBRON, RN, CM
[2019-11-05] MEDS: 0.9% Normal Saline 1,000 ML 75 ML IV (11:23)
[2019-11-05 11:36] LABS: Bedside Glucose 325 mg/dL (70-110)
[2019-11-05 14:44] VITALS: BP 142/80; PULSE 79; RESP 18; TEMP 36.7; O2SAT 98
[2019-11-05] MEDS: cycloBENZAPRine HCl 5 MG TABLET PO (14:48)
[2019-11-05] MEDS: Acetaminophen 500 MG Tablet 1000 MG PO ×2 (14:49→21:00)
[2019-11-05 16:20] LABS: Bedside Glucose 231 mg/dL (70-110)
[2019-11-05 20:44] VITALS: BP 139/78; PULSE 58; RESP 16; TEMP 36.6; O2SAT 99
[2019-11-05 21:00] VITALS: PULSE 58
[2019-11-05 22:16] LABS: Bedside Glucose 230 mg/dL (70-110)
[2019-11-06] MEDS: dexAMETHasone 4 MG Tablet PO ×4 (00:51→16:58)
[2019-11-06] MEDS: 0.9% Normal Saline 1,000 ML 75 ML IV (00:52)
[2019-11-06 02:44] VITALS: BP 150/76; PULSE 61; RESP 16; TEMP 36.8; O2SAT 99
[2019-11-06] MEDS: Acetaminophen 500 MG Tablet 1000 MG PO ×3 (05:10→21:41)
[2019-11-06] MEDS: Lactulose 20 GM/30 ML UDC 15 GM PO ×3 (05:10→21:42)
[2019-11-06] MEDS: Insulin Lispro 100 UNIT/ML INSULN.PEN SC ×3 (06:47→16:57)
[2019-11-06 06:56] LABS: Bedside Glucose 227 mg/dL (70-110)
--- NOTE | 2019-11-06 08:47 | DCINST_ITS ---
- Discharge Diagnoses Current Active Problems: Current Active and Chronic Problems Acute exacerbation of chronic low back pain (Chronic) You will use the following diet at home:: Calorie/Carbohydrate Controlled (specify 1200, 1400, etc) - 1800 Your food should be the consistency of: Regular Your liquids should be the consistency of: Regular/Thin Discharge Activity: - - activity as tolerated Call your doctor if you observe: Uncontrolled pain Allergies/Adverse Reactions: Allergies adhesive Allergy (Unknown, Verified 11/04/19 17:27) Unknown PER [facility] [facility] choline fenofibrate [From Trilipix] Allergy (Unknown, Verified 11/04/19 17:27) Unknown PER [employer] pregabalin [From Lyrica] Allergy (Unknown, Verified 11/04/19 17:27) Unknown PER [employer] Mpnnhvi-Pgm-Zzu Reductase Inhibitor Allergy (Unknown, Verified 11/04/19 17:27) Unknown PER [employer] [facility] Sulfa (Sulfonamide Antibiotics) Allergy (Verified 11/04/19 17:27) Itching vancomycin Allergy (Verified 11/04/19 17:27) Itching Medications to take at Discharge Carvedilol [Coreg (Beta Rui)] 25 mg PO DAILY 06/14/14 Pantoprazole Sodium [Protonix] 40 mg PO DAILY 06/14/14 Insulin Detemir [Levemir FlexPen] 36 units SC QHS 08/30/14 Albuterol Inhaler [Ventolin Hfa] 1 - 2 puff INHALATION Q4H PRN PRN #1 inhaler 10/08/17 Cholecalciferol (VIT D3) [Vitamin D3] 1,000 unit PO DAILY 10/08/17 Furosemide [Lasix] 40 mg PO BREAKFAST 10/08/17 Insulin Lispro [Humalog KwikPen] 34 unit SQ TIDCM 10/08/17 Isosorbide Mononitrate [Isosorbide Mononitrate ER] 30 mg PO DAILY 10/08/17 Lactulose 15 ml PO TID 10/08/17 Apixaban [Eliquis] 5 mg PO BID 02/25/18 Vit C/Vit E AC/Lut/Copper/Zinc [Preservision Lutein Softgel] 1 each PO BID 05/05/18 Prednisone [Deltasone] 10 mg PO DAILY 11/13/18 Alendronate Sodium 70 mg PO QWEEK 11/04/19 Morphine Sulfate 15 mg PO TID PRN PRN 11/04/19 Acetaminophen [Tylenol] 1,000 mg PO Q8 PRN tablet 11/06/19 cycloBENZAPRine HCl [Cyclobenzaprine HCl] 5 mg PO TID PRN #20 tab 11/06/19 The following prescriptions were given: cycloBENZAPRine HCl [Cyclobenzaprine HCl] 5 mg PO TID PRN #20 tab PRN Reason: Muscle Spasm Transmission Status: Pending to [facility] [facility] Orders to be completed after discharge: Physical Therapy Evaluation Time Frame: 1 Week, Location: None Selected Primary Care Physician: Boom Aviles [Primary Care Provider] - Within 2 Weeks Test Results: Test results from this visit will be discussed in further detail at your follow- up appointment, if applicable. Please Follow Up With: Pain management When: next scheduled appointment Please Follow Up With: Misa Nieves MD - rheumatology When: at earliest avaiable appointment Proposed Discharge Date: 11/06/19
--- NOTE | 2019-11-06 08:52 | DS.PCM_ITS ---
Discharge Date and Diagnosis Date of Admission: 11/04/19 Date of Discharge: 11/06/19 - Primary Discharge Diagnosis acute on chronic back pain. - Secondary Discharge Diagnosis Chronic Problems Acute exacerbation of chronic low back pain (Chronic) Chronic back pain (Chronic) Chronic pain syndrome (Chronic) Chronic pain (Chronic) Paroxysmal atrial fibrillation (Chronic) NSTEMI (non-ST elevated myocardial infarction) (Chronic) hypertension (Chronic) diabetes mellitus type II (Chronic) coronary artery disease (Chronic) status post stent in 10/2013, following with Dr. Levine/ Hospital Course and Treatment Operations: None Procedures: None Summary of Care Provided: The patient is a 74 year old M presents with back pain. Patient has a chronic pain that he describes as all over. Patient sees pain management for that. Patient woke on the morning of the with acute left lower back pain that radiates to his groin. There is no associated radiculopathy nor any bowel or bladder incontinence. Exam was consistent with lumbar region paraspinal muscle spasm and patient was started on cyclobenzaprine, as well as scheduled acetaminophen. Patient is on chronic steroids for his pain, per his description. Started was started on Decadron. Today, the patient is doing much better and feels ready to go home. Patient will receive a prescription for cyclobenzaprine as needed and may take up to 1000 mg of acetaminophen 3 times daily as needed. I am concerned about this patient being on chronic prednisone without the definitive diagnosis supporting that. Patient states that he just takes it for his pain which short-term may be okay but long-term, given the potential for serious issues I have recommended he follow-up with a swine genetics researcher, to which he states that he has never seen. So I would want to make sure that if he does need to be on prednisone that there is some diagnosis as not being missed otherwise I think it the weaned off over. Of time given its high risk of complications with long-term use. Patient was given information to follow-up with Dr. Nieves as outpatient [] - Physical Exam Vitals/I&O's: Vital Signs Temp Pulse Resp BP Pulse Ox 36.8 C 61 16 150/76 H 99 11/06/19 02:44 11/06/19 02:44 11/06/19 02:44 11/06/19 02:44 11/06/19 02:44 Oxygen Delivery Method Room Air Weight: 82.2 kg Body Mass Index (BMI) 32.1 Finger Stick Blood Glucose 131 Intake and Output for Last 24 Hours 11/04/19 11/05/19 11/06/19 23:59 23:59 23:59 Intake Total 993.75 / 1293.75 1640 / 1640 Output Total 2200 / 2700 1000 / 1000 Balance -1206.25 / -1406.25 640 / 640 General: Alert, No apparent distress HEENT: Atraumatic, Normocephalic Oral: Moist Mucosa, No Gingival or Mucosal Lesions/ Ulcerations Neck: No Nodes, Trachea Midline Lungs: Clear to auscultation, Normal air movement, No rhonchi, No wheeze Cardiovascular: Regular rate, Regular Rhythm, Normal S1, Normal S2, No murmurs Abdomen: Bowel Sounds Present, Soft, Non Tender, Non-Distended, No Hepato- splenomegaly Extremities: No edema, No Calf Tenderness Psych/Mental Status: Normal Affect, Appropriate Laboratory Results 11/05/19 11:28: POC Glucose 325 H 11/05/19 16:17: POC Glucose 231 H 11/05/19 20:53: POC Glucose 230 H 11/06/19 06:46: POC Glucose 227 H Current Medications Acetaminophen (Tylenol) 1,000 mg PO Q8 [facility] Last Admin: 11/06/19 05:10 Dose: 1,000 mg Documented by: Albuterol Sulfate (Ventolin Aerosols) 2.5 mg INHALATION Q2H PRN PRN PRN Reason: sob/wheezing Alendronate Sodium (Fosamax) 70 mg PO Luu@0600 [facility] Apixaban (Eliquis) 5 mg PO BID [facility] Last Admin: 11/05/19 21:00 Dose: 5 mg Documented by: Bisacodyl (Dulcolax) 5 mg PO DAILY PRN PRN PRN Reason: Constipation Carvedilol (Coreg) 25 mg PO DAILY [facility] Last Admin: 11/05/19 09:00 Dose: 25 mg Documented by: Cholecalciferol (Vitamin D) 1,000 unit PO DAILY [facility] Last Admin: 11/05/19 09:00 Dose: 1,000 unit Documented by: Cyclobenzaprine HCl (Cyclobenzaprine Hcl) 5 mg PO TID PRN PRN Reason: MUSCLE SPASM Last Admin: 11/05/19 14:48 Dose: 5 mg Documented by: Dexamethasone (Decadron) 4 mg PO Q6 [facility] Last Admin: 11/06/19 05:10 Dose: 4 mg Documented by: Glucagon () 1 mg IM .X1 PRN PRN Reason: Hypoglycemia Hydralazine HCl (Apresoline Iv) 5 mg IV Q4H PRN PRN PRN Reason: SBP > 160 Dextrose (Dextrose 10%-Water) 250 mls @ 999 mls/hr IV .Q16M PRN; Protocol PRN Reason: HYPOGLYCEMIA Insulin Glargine (Lantus (Bk)) 36 units SC QHS [facility] Last Admin: 11/05/19 20:57 Dose: 36 u Documented by: Insulin Human Lispro (Humalog Kwikpen ([facility])) 0 unit SC ACHS [facility]; Protocol Last Admin: 11/06/19 06:47 Dose: 2 u Documented by: Insulin Human Lispro (Humalog Kwikpen ([facility])) 25 unit SC TIDCM [facility] Last Admin: 11/05/19 17:40 Dose: 25 u Documented by: Isosorbide Mononitrate (Imdur) 30 mg PO DAILY [facility] Last Admin: 11/05/19 09:00 Dose: 30 mg Documented by: Lactulose (Chronulac, Cephulac) 15 gm PO TID [facility] Last Admin: 11/06/19 05:10 Dose: 15 gm Documented by: Melatonin (Melatonin) 3 mg PO QHS PRN PRN PRN Reason: INSOMNIA Last Admin: 11/04/19 22:10 Dose: 3 mg Documented by: Morphine Sulfate (Roxanol (Ir Oral Solution)) 15 mg PO Q6H PRN PRN PRN Reason: Pain Score 6-10/10 Last Admin: 11/05/19 17:49 Dose: 15 mg Documented by: Multivitamins/Minerals (Multivitamin With Minerals) 1 tablet PO DAILY@0800 [facility] Last Admin: 11/05/19 08:32 Dose: 1 tablet Documented by: Nutritional Formula (Lactose Free) (Glucerna Shake) 120 ml PO TIDCM [facility] Last Admin: 11/05/19 17:39 Dose: 120 ml Documented by: Ondansetron HCl (Zofran) 4 mg IV Q6H PRN PRN PRN Reason: NAUSEA/VOMITING Pantoprazole Sodium (Protonix) 40 mg PO DAILY [facility] Last Admin: 11/05/19 09:00 Dose: 40 mg Documented by: Senna/Docusate Sodium (Senokot-S, Traci-Colace) 2 tablet PO BID PRN PRN PRN Reason: Constipation Sodium Chloride () 10 ml IV PRN PRN PRN Reason: IV FLUSH Last Admin: 11/04/19 22:08 Dose: 10 ml Documented by: Discharge Diet: 1800 Calorie Control Diet Discharge Activity: - - activity as tolerated Call your doctor if you observe: Uncontrolled pain Home Medications: Medications to take at Discharge Carvedilol [Coreg (Beta Rui)] 25 mg PO DAILY 06/14/14 Pantoprazole Sodium [Protonix] 40 mg PO DAILY 06/14/14 Insulin Detemir [Levemir FlexPen] 36 units SC QHS 08/30/14 Albuterol Inhaler [Ventolin Hfa] 1 - 2 puff INHALATION Q4H PRN PRN #1 inhaler 10/08/17 Cholecalciferol (VIT D3) [Vitamin D3] 1,000 unit PO DAILY 10/08/17 Furosemide [Lasix] 40 mg PO BREAKFAST 10/08/17 Insulin Lispro [Humalog KwikPen] 34 unit SQ TIDCM 10/08/17 Isosorbide Mononitrate [Isosorbide Mononitrate ER] 30 mg PO DAILY 10/08/17 Lactulose 15 ml PO TID 10/08/17 Apixaban [Eliquis] 5 mg PO BID 02/25/18 Vit C/Vit E AC/Lut/Copper/Zinc [Preservision Lutein Softgel] 1 each PO BID 05/05/18 Prednisone [Deltasone] 10 mg PO DAILY 11/13/18 Alendronate Sodium 70 mg PO QWEEK 11/04/19 Morphine Sulfate 15 mg PO TID PRN PRN 11/04/19 Acetaminophen [Tylenol] 1,000 mg PO Q8 PRN tablet 11/06/19 cycloBENZAPRine HCl [Cyclobenzaprine HCl] 5 mg PO TID PRN #20 tab 11/06/19 Following Prescrptions Were Given to Patient: cycloBENZAPRine HCl [Cyclobenzaprine HCl] 5 mg PO TID PRN #20 tab PRN Reason: Muscle Spasm Transmission Status: Pending to [facility] Other Amb Orders: Physical Therapy Evaluation Time Frame: 1 Week, Location: None Selected Primary Care Physician: Boom Aivles [Primary Care Provider] - Within 2 Weeks Please Follow Up With: Pain management When: next scheduled appointment Please Follow Up With: Misa Nieves MD - rheumatology When: at earliest avaiable appointment Disposition: Home Minutes spent on discharge:: 32 Patient Condition:: Fair Medical Necessity - Tobacco Use Smoking Status: Never smoker Meaningful Use Info Meaningful Use Diagnoses (Choose all that apply): None applicable Code Visit Inpatient E&M: 57380 Disch Hosp
[2019-11-06 09:30] VITALS: BP 148/78; PULSE 77; RESP 18; TEMP 36.6; O2SAT 98
[2019-11-06] MEDS: morphine (oral solution) 10MG/0.5ML Syringe 15 MG PO ×2 (09:37→21:29)
[2019-11-06] MEDS: Glucerna Shake 120 ML LIQUID PO ×3 (09:37→16:58)
[2019-11-06] MEDS: Insulin Lispro 100 UNIT/ML INSULN.PEN 25 UNIT SC ×3 (09:39→16:57)
[2019-11-06] MEDS: Isosorbide Mononitrate 30 MG Tablet PO (09:39)
[2019-11-06] MEDS: APIXABAN 5 MG TABLET PO ×2 (09:40→21:40)
[2019-11-06] MEDS: Multivitamins,Ther W-Minerals Tablet 1 TABLET PO (09:40)
[2019-11-06] MEDS: Pantoprazole Sodium 40 MG Tablet PO (09:40)
[2019-11-06] MEDS: Carvedilol 25 MG Tablet PO (09:41)
--- NOTE | 2019-11-06 10:57 | PCM.HOSP.N ---
Hospitalist Note Notified patient was too weak with therapy. Earlier he had less pain on his left paraspinal muscles. Given that he is too debilitated at this time, home is not a viable option for him at this time. Plan now is for him to go to a SNF to improve his strength. Discharge now held pending insurance authorization. Please refer to the discharge summary done today for further details, exam findings. Code Visit Inpatient E&M: 77952 Subs Hosp L2 - disregard the discharge billing for today.
--- NOTE | 2019-11-06 11:11 | CASEMGMT ---
Addendum entered by Bonita Arevalo 11/06/19 11:45: [facility] can take pt. Pt has not been there since April, so has all Medicare days back. SW spoke w/pt, let him know [facility] can take him and he has all of his Medicare jail days back. Pt states understanding. Pt confirmed his son can take him tomorrow to the jail. SW will follow up tomorrow for discharge to [facility], will completed hospital exemption in [place] today. LAWRENCE Painter Addendum entered by Bonita Arevalo 11/06/19 11:39: SW spoke w/son about getting to the jail tomorrow, he thinks that his son will be able to take him, will call him today to see if he can take the pt tomorrow. LAWRENCE Painter Addendum entered by Bonita Arevalo 11/06/19 11:21: SW let pt know that referral was made to [facility] and that SW confirmed with [facility] that pt was there in the fall. Pt is not sure exactly when he was there. SW explained if he has not been out of the jail and hospital for 60 days, his Medicare jail benefit would picker box operator where it left off. Pt states he was there about two weeks. SW explained he still would have the rest of his first 20 days and then his copay days if pt has not been out long enough to get the full 100 day benefit back. Pt states understanding. SW did explain his secondary insurance may also cover the copay. Pt states understanding. SW will continue to follow. LAWRENCE Painter Original Note: SW met w/pt in room as physician has stated pt is not able to go home, needs to go to jail for rehab. SW gave pt a list of local nursing homes with the Medicare Star Ratings. Pt states has been to the facility on [facility] in [place], his daughter in law works there in housekeeping. The facility is [facility]. Pt agreeable to sending a referral to [facility]. SW faxed referral, called [facility]([phone]), spoke w/Patsy. SW confirmed that this is where pt had been in the fall. She will review the referral and let SW know if they can take pt. SW will continue to follow. LAWRENCE Painter
--- NOTE | 2019-11-06 11:34 | RAD_ITS ---
STUDY: X-RAY - LUMBAR SPINE REASON FOR EXAM: Male, 74 years old. Back pain x 2 days -- NKI -- left leg pain TECHNIQUE: 3 view(s) of the lumbar spine were obtained. COMPARISON: None FINDINGS: Mild levoconvex scoliosis. Vascular calcifications. Degenerative disc disease at the L2-3 level. Multiple osteophytes. No compression deformities. Diffuse facet disease. RAD/Lumbar Spine 2 or 3 Views IMPRESSION: Multilevel degenerative disease as described. Electronically Signed: Kyle Salter MD at 0:46 EST Tel , Service support ,
[2019-11-06] MEDS: Lidocaine 5% Patch 1 PATCH TOPICAL (12:21)
[2019-11-06 12:25] LABS: Bedside Glucose 240 mg/dL (70-110)
[2019-11-06 15:39] VITALS: BP 136/66; PULSE 58; RESP 18; TEMP 36.4; O2SAT 98
[2019-11-06 16:56] LABS: Bedside Glucose 151 mg/dL (70-110)
[2019-11-06 21:20] VITALS: BP 151/69; PULSE 60; RESP 18; TEMP 36.5; O2SAT 98
[2019-11-06] MEDS: MELATONIN 3 MG TABLET PO (21:41)
[2019-11-06 22:05] LABS: Bedside Glucose 143 mg/dL (70-110)
[2019-11-07] MEDS: dexAMETHasone 4 MG Tablet PO ×2 (00:20→06:25)
[2019-11-07 03:20] VITALS: BP 145/67; PULSE 55; RESP 18; TEMP 36.4; O2SAT 99
[2019-11-07] MEDS: Acetaminophen 500 MG Tablet 1000 MG PO (06:25)
[2019-11-07] MEDS: Lactulose 20 GM/30 ML UDC 15 GM PO (06:25)
[2019-11-07 06:30] LABS: Bedside Glucose 240 mg/dL (70-110)
[2019-11-07] MEDS: Insulin Lispro 100 UNIT/ML INSULN.PEN SC (06:42)
[2019-11-07] MEDS: Insulin Lispro 100 UNIT/ML INSULN.PEN 25 UNIT SC (08:38)
[2019-11-07] MEDS: Multivitamins,Ther W-Minerals Tablet 1 TABLET PO (08:39)
[2019-11-07] MEDS: Isosorbide Mononitrate 30 MG Tablet PO (08:39)
[2019-11-07] MEDS: Glucerna Shake 120 ML LIQUID PO (08:39)
[2019-11-07] MEDS: Carvedilol 25 MG Tablet PO (08:39)
[2019-11-07 08:40] VITALS: BP 167/73; PULSE 62; RESP 16; TEMP 36.4; O2SAT 96
[2019-11-07] MEDS: APIXABAN 5 MG TABLET PO (08:40)
[2019-11-07] MEDS: Lidocaine 5% Patch 1 PATCH TOPICAL (08:41)
[2019-11-07] MEDS: Pantoprazole Sodium 40 MG Tablet PO (08:41)
--- NOTE | 2019-11-07 08:56 | TREXTCAR_ITS ---
- Diet 11/04/19 20:45 Diet: Calorie Controlled Food consistency:: Regular Liquid Consistency:: Regular/Thin How many daily calories?: 1800 calorie - Routine Orders/Code Status Code Status: Full Code - Wound(s) bilateral legs Wound Type: Scabbed sores left arm Wound Type: Abrasion - Therapies Physical Therapy: Eval and Treat Occupational Therapy: Eval and Treat - Allergies/Procedures Done in Hospital Allergies/Adverse Reactions: Allergies adhesive Allergy (Unknown, Verified 11/04/19 17:27) Unknown PER [employer] [facility] choline fenofibrate [From Trilipix] Allergy (Unknown, Verified 11/04/19 17:27) Unknown PER [employer] pregabalin [From Lyrica] Allergy (Unknown, Verified 11/04/19 17:27) Unknown PER [employer] Eyovpnp-Hze-Ajp Reductase Inhibitor Allergy (Unknown, Verified 11/04/19 17:27) Unknown PER [employer] [facility] Sulfa (Sulfonamide Antibiotics) Allergy (Verified 11/04/19 17:27) Itching vancomycin Allergy (Verified 11/04/19 17:27) Itching - Type of Care/Length of Stay Estimated LOS: Convalescent Care Less Than 30 days Type of Care Needed: Skilled Rehab Potential: Fair Prognosis: Good - Additional Orders/Day of Discharge Day of Discharge: 11/07/19 - Dietary and Speech Recommendations Dietitian Recommendations/Changes: Recommend 1800 calorie cardiac/low chol diet. Discontinue Glucerna shake 120 mL TID due to reported adequate intake. - Follow Up Care Primary Care Physician: Boom Aviles [Primary Care Provider] - Within 2 Weeks Please Follow Up With: Pain management When: next scheduled appointment Please Follow Up With: Misa Nieves MD When: at earliest avaiable appointment Please Follow Up With: Dr.Petrilla Nur When: November 10, 2019
--- NOTE | 2019-11-07 08:58 | PCM.DC.SUM ---
Discharge Date and Diagnosis Date of Admission: 11/04/19 Date of Discharge: 11/07/19 - Primary Discharge Diagnosis acute on chronic back pain secondary to paraspinal muscle spasm. - Secondary Discharge Diagnosis Chronic Problems Acute exacerbation of chronic low back pain (Chronic) Chronic back pain (Chronic) Chronic pain syndrome (Chronic) Chronic pain (Chronic) Paroxysmal atrial fibrillation (Chronic) NSTEMI (non-ST elevated myocardial infarction) (Chronic) hypertension (Chronic) diabetes mellitus type II (Chronic) coronary artery disease (Chronic) status post stent in 10/2013, following with Dr. Levine/ Hospital Course and Treatment Imaging Results: Clinical Impression(s) from Imaging Studies Lumbar Spine X-Ray 11/06/19 11:34 IMPRESSION: Multilevel degenerative disease as described. Electronically Signed: Kyle Salter MD at 0:46 EST Tel , Service support , Operations: None Procedures: None Summary of Care Provided: The patient is a 74 year old M presents with left back pain. From discharge summary done on 11/06: The patient is a 74 year old M presents with back pain. Patient has a chronic pain that he describes as all over. Patient sees pain management for that. Patient woke on the morning of the with acute left lower back pain that radiates to his groin. There is no associated radiculopathy nor any bowel or bladder incontinence. Exam was consistent with lumbar region paraspinal muscle spasm and patient was started on cyclobenzaprine, as well as scheduled acetaminophen. Patient is on chronic steroids for his pain, per his description. Started was started on Decadron. Today, the patient is doing much better and feels ready to go home. Patient will receive a prescription for cyclobenzaprine as needed and may take up to 1000 mg of acetaminophen 3 times daily as needed. I am concerned about this patient being on chronic prednisone without the definitive diagnosis supporting that. Patient states that he just takes it for his pain which short-term may be okay but long-term, given the potential for serious issues I have recommended he follow-up with a prints and drawings curator, to which he states that he has never seen. So I would want to make sure that if he does need to be on prednisone that there is some diagnosis as not being missed otherwise I think it the weaned off over. Of time given its high risk of complications with long-term use. Patient was given information to follow-up with Dr. Nieves as outpatient. Today, patient his pain is worse. Stated that his left leg went numb last night. Examined the patient and he still has the left paraspinal muscle tenderness which overall seems better than it was initially when he presented though he stated it is worse now. I told him that we will try to optimize his cyclobenzaprine and as well as some other nonnarcotic agents. I clarified further with him in regards to why he is on narcotics. He says just that he does not know and that when he sees his pain management doctor he does not understand anything he says and then the doctor laughs and then walks out the door without examining him. Made a request to get records from his pain management physician's office to see what patient is actively being treated for with pain medications. I am concerned there may be some drug-seeking behavior just based on lack of physical findings and overall clinical improvement though the patient is endorsing that he is worse. Mostly concerned because of his history being established pain management doctor and then. Get fired for receiving narcotics from an outside source. [] - Physical Exam Vitals/I&O's: Vital Signs Temp Pulse Resp BP Pulse Ox 36.4 C L 55 L 18 145/67 H 99 11/07/19 03:20 11/07/19 03:20 11/07/19 03:20 11/07/19 03:20 11/07/19 03:20 Oxygen Delivery Method Room Air Weight: 82.2 kg Body Mass Index (BMI) 32.1 Finger Stick Blood Glucose 131 Intake and Output for Last 24 Hours 11/05/19 11/06/19 11/07/19 23:59 23:59 23:59 Intake Total 993.75 / 1293.75 2700 / 2950 400 / 400 Output Total 2200 / 2700 2014 375 / 375 Balance -1206.25 / -1406.25 685 / 760 General: Alert, No apparent distress HEENT: Atraumatic, Normocephalic Musculoskeletal: - - Left paraspinal lumbar muscle tenderness. Less taut than had been days prior. No right paraspinal muscle tenderness. No point tenderness. Neurological: Motor Exam 5/5 strength throughout - In the lower extremities Psych/Mental Status: Normal Affect, Appropriate Laboratory Results 11/06/19 12:19: POC Glucose 240 H 11/06/19 16:53: POC Glucose 151 H 11/06/19 21:39: POC Glucose 143 H 11/07/19 06:20: POC Glucose 240 H Current Medications Acetaminophen (Tylenol) 1,000 mg PO Q8 [facility] Last Admin: 11/07/19 06:25 Dose: 1,000 mg Documented by: Albuterol Sulfate (Ventolin Aerosols) 2.5 mg INHALATION Q2H PRN PRN PRN Reason: sob/wheezing Alendronate Sodium (Fosamax) 70 mg PO Luu@0600 [facility] Apixaban (Eliquis) 5 mg PO BID [facility] Last Admin: 11/07/19 08:40 Dose: 5 mg Documented by: Bisacodyl (Dulcolax) 5 mg PO DAILY PRN PRN PRN Reason: Constipation Carvedilol (Coreg) 25 mg PO DAILY [facility] Last Admin: 11/07/19 08:39 Dose: 25 mg Documented by: Cholecalciferol (Vitamin D) 1,000 unit PO DAILY [facility] Last Admin: 11/07/19 08:41 Dose: 1,000 unit Documented by: Cyclobenzaprine HCl (Cyclobenzaprine Hcl) 10 mg PO TID PRN PRN Reason: MUSCLE SPASM Dexamethasone (Decadron) 4 mg PO Q6 [facility] Last Admin: 11/07/19 06:25 Dose: 4 mg Documented by: Gabapentin (Neurontin) 100 mg PO TIDCM [facility] Glucagon () 1 mg IM .X1 PRN PRN Reason: Hypoglycemia Hydralazine HCl (Apresoline Iv) 5 mg IV Q4H PRN PRN PRN Reason: SBP > 160 Dextrose (Dextrose 10%-Water) 250 mls @ 999 mls/hr IV .Q16M PRN; Protocol PRN Reason: HYPOGLYCEMIA Insulin Glargine (Lantus (Bkc)) 36 units SC QHS [facility] Last Admin: 11/06/19 21:45 Dose: 36 u Documented by: Insulin Human Lispro (Humalog Kwikpen (Bk)) 0 unit SC ACHS [facility]; Protocol Last Admin: 11/07/19 06:42 Dose: 2 u Documented by: Insulin Human Lispro (Humalog Kwikpen (Bkc)) 25 unit SC TIDCM [facility] Last Admin: 11/07/19 08:38 Dose: 25 u Documented by: Isosorbide Mononitrate (Imdur) 30 mg PO DAILY [facility] Last Admin: 11/07/19 08:39 Dose: 30 mg Documented by: Lactulose (Chronulac, Cephulac) 15 gm PO TID [facility] Last Admin: 11/07/19 06:25 Dose: 15 gm Documented by: Lidocaine (Lidoderm Patch) 1 patch TOPICAL DAILY [facility]; Protocol Last Admin: 11/07/19 08:41 Dose: 1 patch Documented by: Melatonin (Melatonin) 3 mg PO QHS PRN PRN PRN Reason: INSOMNIA Last Admin: 11/06/19 21:41 Dose: 3 mg Documented by: Morphine Sulfate (Roxanol (Ir Oral Solution)) 15 mg PO Q6H PRN PRN PRN Reason: Pain Score 6-10/10 Last Admin: 11/06/19 21:29 Dose: 15 mg Documented by: Multivitamins/Minerals (Multivitamin With Minerals) 1 tablet PO DAILY@0800 [facility] Last Admin: 11/07/19 08:39 Dose: 1 tablet Documented by: Nutritional Formula (Lactose Free) (Glucerna Shake) 120 ml PO TIDCM [facility] Last Admin: 11/07/19 08:39 Dose: 120 ml Documented by: Ondansetron HCl (Zofran) 4 mg IV Q6H PRN PRN PRN Reason: NAUSEA/VOMITING Pantoprazole Sodium (Protonix) 40 mg PO DAILY [facility] Last Admin: 11/07/19 08:41 Dose: 40 mg Documented by: Senna/Docusate Sodium (Senokot-S, Traci-Colace) 2 tablet PO BID PRN PRN PRN Reason: Constipation Sodium Chloride () 10 ml IV PRN PRN PRN Reason: IV FLUSH Last Admin: 11/04/19 22:08 Dose: 10 ml Documented by: Discharge Diet: 1800 Calorie Control Diet Discharge Activity: - - activity as tolerated Call your doctor if you observe: Uncontrolled pain Home Medications: Medications to take at Discharge Carvedilol [Coreg (Beta Rui)] 25 mg PO DAILY 06/14/14 Pantoprazole Sodium [Protonix] 40 mg PO DAILY 06/14/14 Insulin Detemir [Levemir FlexPen] 36 units SC QHS 08/30/14 Albuterol Inhaler [Ventolin Hfa] 1 - 2 puff INHALATION Q4H PRN PRN #1 inhaler 10/08/17 Cholecalciferol (VIT D3) [Vitamin D3] 1,000 unit PO DAILY 10/08/17 Furosemide [Lasix] 40 mg PO BREAKFAST 10/08/17 Insulin Lispro [Humalog KwikPen] 34 unit SQ TIDCM 10/08/17 Isosorbide Mononitrate [Isosorbide Mononitrate ER] 30 mg PO DAILY 10/08/17 Lactulose 15 ml PO TID 10/08/17 Apixaban [Eliquis] 5 mg PO BID 02/25/18 Vit C/Vit E AC/Lut/Copper/Zinc [Preservision Lutein Softgel] 1 each PO BID 05/05/18 Prednisone [Deltasone] 10 mg PO DAILY 11/13/18 Alendronate Sodium 70 mg PO QWEEK 11/04/19 Acetaminophen [Tylenol] 1,000 mg PO Q8 PRN tab 11/06/19 Gabapentin [Neurontin] 100 mg PO TIDCM cap 11/07/19 Morphine Sulfate 15 mg PO TID PRN PRN 3 Days #9 tab 11/07/19 cycloBENZAPRine HCl [Cyclobenzaprine HCl] 10 mg PO TID PRN #0 tab 11/07/19 Following Prescrptions Were Given to Patient: Morphine Sulfate 15 mg PO TID PRN PRN 3 Days #9 tab PRN Reason: Pain Or Fever Prescription Printed Other Amb Orders: Physical Therapy Evaluation Time Frame: 1 Week, Location: None Selected Primary Care Physician: Boom Aviles [Primary Care Provider] - Within 2 Weeks Please Follow Up With: Pain management When: next scheduled appointment Please Follow Up With: Misa Nieves MD When: at earliest avaiable appointment Please Follow Up With: Dr.Petrilla Nur When: November 10, 2019 Disposition: Home Minutes spent on discharge:: 32 Patient Condition:: Fair Medical Necessity - Tobacco Use Smoking Status: Never smoker Meaningful Use Info Meaningful Use Diagnoses (Choose all that apply): None applicable Code Visit Inpatient E&M: 97814 Disch Hosp
[2019-11-07] MEDS: cycloBENZAPRine HCl 10 MG Tablet PO (09:19)
[2019-11-07] MEDS: Gabapentin 100 MG Capsule PO (09:19)
[2019-11-07] MEDS: morphine (oral solution) 10MG/0.5ML Syringe 15 MG PO (09:29)
--- NOTE | 2019-11-07 09:51 | CASEMGMT ---
Social Work Note Pt is discharging to SNF today. BARTOLOME faxed completed discharge paperwork to [facility] including transfer to extended care facility, signed medication list and any scripts. Original in SNF folder and copy on pt's chart. HENS completed yesterday, original in SNF folder and copy on pt's chart. BARTOLOME in to speak with pt and update pt on discharge to SNF today. Pt confirms that his son is able to transport him and he will call his son. BARTOLMOE updated RN. BARTOLOME placed a call to Urszula at [facility] and updated her on discharge today and that pt's son will be transporting pt. Plan: [facility] skilled today with pt's son transporting pt Nga Bryant RAIL BENDER, SUPERINTENDENT CIRCUS
[2019-11-07 10:50] VITALS: BP 148/63; PULSE 62; RESP 16; TEMP 36.4; O2SAT 96
--- NOTE | 2019-11-07 11:25 | NURSING ---
[facility]
== END 2019-11-07 11:14 | disposition skilled nursing facility (03) | DRG 552 ==
LOC: ED 18:19 → MS3 20:56
PROVIDERS: Admitting Provider Hospitalist; Emergency Provider Emergency Medicine; PCP Family Medicine
DX: M62.830 Muscle spasm of back (principal); N17.9 Acute kidney failure, unspecified; M54.9 Dorsalgia, unspecified; I25.10 Atherosclerotic heart disease of native coronary artery without angina pectoris; I12.9 Hypertensive chronic kidney disease with stage 1 through stage 4 chronic kidney disease, or unspecified chronic kidney disease; N18.9 Chronic kidney disease, unspecified; G89.4 Chronic pain syndrome; I48.0 Paroxysmal atrial fibrillation; R53.81 Other malaise; E11.22 Type 2 diabetes mellitus with diabetic chronic kidney disease; Z79.01 Long term (current) use of anticoagulants; Z79.4 Long term (current) use of insulin; Z95.5 Presence of coronary angioplasty implant and graft
CPT/HCPCS: 36415; 72100; 80048; 81001; 82962; 85025; 97116; 97162; 97166; 97530; 97535; 97802; 99285; J7030; A4216; J2405

== ENCOUNTER 2020-01-15 14:14 | Inpatient (IN) | payer MEDICARE, BC, SELFPAY ==
[2019-11-04 20:27] VITALS: BMI 32.1
[2020-01-15] VITALS (17 sets, daily range): BP systolic 108–154; BP diastolic 43–85; PULSE 73–110; RESP 15–40; TEMP 36.8–39.1; O2SAT 93–98; BMI 29.4; BMI 28.2; BMI 28.1
--- NOTE | 2020-01-15 14:40 | CT_ITS ---
STUDY: CT BRAIN WITHOUT CONTRAST REASON FOR EXAM: Male, 74 years old. ALTERED MENTAL STATUS RADIATION DOSAGE (If Supplied By Facility): CTDIvol = ( 60.81 ) mGy, DLP = ( 1044.28 ) mGycm TECHNIQUE: Transaxial CT imaging of the brain was performed without administration of intravenous contrast material. Individualized dose optimization techniques were used for this CT. COMPARISON: Comparison is made with prior study dated June 15, 2014. FINDINGS: Normal soft tissue structures. Normal calvarium. There is mild cerebral atrophy with widening of the extra-axial spaces and ventricular dilatation. There are areas of decreased attenuation within the white matter tracts of the supratentorial brain, consistent with microvascular disease changes. Normal basal ganglia and thalami. Normal brainstem. Normal cerebellum. There is no intracranial hemorrhage. There are no findings of an acute ischemic infarction. Atherosclerotic calcification of the cavernous portions of the internal carotid arteries bilaterally. Mild degree of mucosal thickening of the maxillary sinuses bilaterally. CT/Brain/Head without Contrast IMPRESSION: Chronic involutional changes of the brain. Electronically Signed: Raghav Mark, at 15:44 EDT , Service support ,
--- NOTE | 2020-01-15 14:40 | EKG12_ITS ---
Test Reason : Blood Pressure : / mmHG Vent. Rate : 104 BPM Atrial Rate : 104 BPM P-R Int : 174 ms QRS Dur : 082 ms QT Int : 358 ms P-R-T Axes : 047 -65 063 degrees QTc Int : 470 ms Sinus tachycardia Left anterior fascicular block Abnormal ECG Confirmed by CECILIA CLEVELAND, BEN ([id number]), purchase request editor BRAXTON COLLIER ([id number]) on 01/21/2020 8:50:08 AM Referred By: RIMA Confirmed By:BEN BROOKS MD
[2020-01-15 15:08] LABS: Bacteria 0 SEEN /hpf (None Seen); Mucous, Urine 0 SEEN /hpf (<or=2+); Red Blood Cells-Urine 0 SEEN /hpf (0-5); Squamous Epithelial Cells - UA 0 SEEN /hpf (0-5); White Blood Cells 0 SEEN /hpf (0-5)
[2020-01-15 15:13] LABS: Absolute Lymphocyte Count 1.35 X10^3/uL (0.83-4.51); Absolute Neutrophil Count 15.3 X10^3/uL (2.0-7.7); Basophil# 0.06 X10^3/uL; Basophil% 0.3 % (0-1); Eosinophil# 0.04 X10^3/uL; Eosinophils% 0.2 % (0-5); Hemoglobin 10.1 g/dL (13.0-16.5); Lymphocyte # 1.35 X10^3/ul (4.0); Lymphocyte % 7.1 % (19-41); Mean Corp Hgb Conc 30.6 g/dL (32-36); Mean Corpuscular Hgb 24.8 pg (27.0-32.0); Mean Corpuscular Volume 81.1 fL (80-94); Mean Platelet Vol. 8.7 fl (6.2-12.0); Monocyte# 1.97 X10^3/uL; Monocyte% 10.4 % (0-10); NRBC Flagged by Analyzer 0 % (0-5); Neutrophil # 15.27 X10^3/uL (2.7-7.7); Neutrophil % 80.7 % (47-70); POSITIVE DIFFERENTIAL YES; Platelet Count 289 K/mm3 (150-450); RBC Distribution Width CV 15.2 % (11.6-14.6); RBC Distribution Width SD 44.5 fl (35.1-43.9); Red Blood Count 4.07 M/mm3 (4.6-6.2); White Blood Count 18.9 K/mm3 (4.4-11.0)
[2020-01-15 15:14] LABS: Color, Urine Yellow (Yellow); Glucose, Dipstick 50 mg/dl (Normal); Ketone-Dipstick Negative (Negative); Leukocyte Esterase-Dipstick Negative /ul (Negative); Nitrite-Dipstick Negative (Negative); Occult Blood-Urine Negative /ul (Negative); Protein-Dipstick Negative (Negative); Urine Bilirubin Dipstick Negative (Negative); Urine Clarity Clear (Clear); Urine Urobilinogen Normal (Normal)
--- NOTE | 2020-01-15 15:18 | ED.VIS.GEN ---
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 Mannie was called out to the patient's home earlier this morning for right leg pain and he ended up not wanting to be transported and he called them again several hours later telling them he wanted to take extra doses of his morphine because of his leg and back pain he had back surgery 5 weeks ago, and the squad states he told them it was in a suicide attempt. When they arrived at his house they stated he was lethargic and confused and they gave him Narcan with no significant improvement of his mental status. At this time the history from the patient himself is limited due to his confusion. Prior similar symptoms: Yes Recent Illness/Hospitalization: Yes <Dante Weeks - Last Filed: 01/15/20 17:18> Chief Complaint: Alt LOC Past Medical History <Thaddeus Salmon - Last Filed: 01/15/20 15:51> Prior records reviewed: Yes Past Medical History: - - Arthritis, BPH, coronary artery disease, chronic steroid use, chronic pain, diabetes mellitus insulin-dependent, history of encephalopathy, fibromyalgia, gastroparesis, hemorrhoids, macular degeneration, hypertension and hyperlipidemia Surgical History: herniorrhaphy, - - rotator cuff repair, hernia repair, cardiac stent, lumbar laminectomy, hemorrhoidectomy, cervical fusion Smoking Status: Former smoker - Family History Paternal Family History: Reports: Cancer, Diabetes Maternal Family History: Reports: Diabetes, Heart Disease <Dante Weeks - Last Filed: 01/15/20 17:18> - Allergies and Home Meds Allergies/Adverse Reactions: Allergies adhesive Allergy (Unknown, Verified 01/15/20 14:43) Unknown [facility] choline fenofibrate [From Trilipix] Allergy (Unknown, Verified 01/15/20 14:43) Unknown [facility] pregabalin [From Lyrica] Allergy (Unknown, Verified 01/15/20 14:43) Unknown [facility] Ubvzbvz-Gnd-Lit Reductase Inhibitor Allergy (Unknown, Verified 01/15/20 14:43) Unknown [facility] Sulfa (Sulfonamide Antibiotics) Allergy (Verified 01/15/20 14:43) Itching vancomycin Allergy (Verified 01/15/20 14:43) Itching Primary Care Physician: Boom Aviles [Primary Care Provider] - Review of Systems ROS: Unable to Obtain - Secondary to the patient's mental status <Dante Weeks - Last Filed: 01/15/20 17:18> Physical Exam Vital Signs/Narrative: Vital Signs Temp Pulse Resp BP Pulse Ox 01/15/20 15:19 98.5 F 100 15 154/71 H 94 01/15/20 15:18 100 15 154/71 H 94 01/15/20 14:16 98.5 F 105 H 40 H 152/84 H 98 <Thaddeus Salmon - Last Filed: 01/15/20 15:51> Vital Signs/Narrative: Vital Signs Temp Pulse Resp BP Pulse Ox 01/15/20 14:16 98.5 F 105 H 40 H 152/84 H 98 Inital Vital Signs reviewed: Yes General: Well nourished, Well developed, No Acute Distress Head: Normocephalic, Atraumatic Eyes: Perrl, EOMI ENT: Dry mucous membranes Neck: Supple, Nontender Cardiovascular: Regular rate, Regular rhythm, Murmur Respiratory: No distress, CTA bilaterally, Chest nontender Abdomen: Soft, Nontender, Nondistended, Normal bowel sounds, No masses Back: Nontender, Normal Inspection - Lumbar spine incision clean dry and intact without any signs of infection noted Extremities: Tenderness, Edema - Right anterior sanchez with a small abrasion with surrounding cellulitis but no lymphatic streaking. leg slightly more swollen than left leg. normal distal pulses. Skin: Normal color, No rash, No Trauma Neurological: Confused, Disoriented - No acute focal neurological deficits. patient responds to commands. <Dante Weeks - Last Filed: 01/15/20 17:18> Diagnostic/Tx/Re-eval - Medical Decision Making Attending note: Older male seen with our physician pharmacy assistant. Extensive past medical history. History of CAD, stent, chronic pain, back surgery last several months, on blood thinner Eliquis, congestive heart failure and diabetic. Patient is confused today. No history of fall or head trauma. No history of headache. No history of fever. Recently has had his Lasix increased due to swelling in his leg. I discussed his history with his son. Says he lives at home. He recently was discharged from a [facility]. Due to the recent pandemic the family has been able to visit him very much. When they saw him today they said the house is a mess. He does not seem to be taking care of it or himself. He is on chronic pain meds. Vital signs are stable and afebrile. Older male no acute distress. H EENT exam dry mucous membranes. Pupils round react light. No facial droop. No signs of trauma. Nontender scalp. Lungs clear to auscultation. Heart 5/6 diastolic murmur. Abdomen soft. Nondistended normal bowel sounds no peritoneal signs. Bruising on his lower abdominal wall possibly from insulin injections. He is moving all 4 extremities. His right lower leg cellulitis on the mid lower leg anteriorly. With edema. Dorsi plantarflexion intact. He can lift either leg off the bed. He can lift either arm up. Neurologically is awake. He is alert. His answers questions. His answers are not always accurate. He did note was but he did not know the month or the year. He does follow commands however. Patient be thoroughly evaluated. He is in a need to be admitted. He will be started on IV antibiotics for right lower extremity cellulitis. Labs and radiographic studies are pending. <Thaddeus Salmon - Last Filed: 01/15/20 15:51> Chest X-Ray - ED: 1 View, Read by ED Physician, Read by Radiologist, No Acute Disease - Rhythm Strip Rhythm Strip: Sinus Tach Rate: 101 Ectopy: None - EKG Initial EKG Interpretation: No Acute Injury Pattern, Sinus Tachycardia Prior: Unchanged <Dante Weeks - Last Filed: 01/15/20 17:18> ED Disposition <Thaddeus Salmon - Last Filed: 01/15/20 15:51> <Dante Weeks - Last Filed: 01/15/20 17:18> - Plan for ED Patient: Disposition: Acute Care Hospital [facility] Diagnosis: Severe sepsis, Cellulitis of right leg without foot, Acute delirium, Chronic pain syndrome, coronary artery disease, hypertension, diabetes mellitus type II, Paroxysmal atrial fibrillation Referrals: Boom Aviles [Primary Care Provider] -
--- NOTE | 2020-01-15 15:20 | CM.ED ---
SOCIAL WORK INFORMANT: NURSING REASON FOR REFERRAL: SUICIDAL IDEATION CHIEF COMPLIANT: PATIENT REPORTS WAS BROUGHT TO HOSPITAL BECAUSE, I HAD TO PEE. UNABLE TO COMPLETE ASSESSMENT WITH PATIENT AT THIS TIME. ASSESSMENT COMPLETED WITH PATIENT'S SON, YOSSI KU OVER THE PHONE. MARITAL STATUS: LIVING SITUATION: HOME ALONE SUPPORT/RESOURCES: FAMILY. SON REPORTS LIVES LOCAL. MENTAL HEALTH TREATMENT/HISTORY: SON DENIES ANY MENTAL HEALTH HISTORY FOR PATIENT. 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 SON STATES PATIENT HAS NOT CONSUMED ALCOHOL IN A WHILE SINCE HE IS ON PAIN MEDICATIONS. SON BELIEVES PATIENT IS MISUSING PAIN MEDICATIONS AND HAS A HISTORY OF OVER-MEDICATING. ASSESSMENT: ASSESSMENT COMPLETED WITH PATIENT'S SON, YOSSI ([phone]) OVER THE PHONE. SON REPORTS PATIENT LIVES HOME ALONE AND USES A WALKER/CANE FOR ASSISTANCE WITH AMBULATION. SON REPORTS HIS SISTER, HAILEY CALLED HIM EARLIER TODAY STATING PATIENT WAS NOT ANSWERING THE PHONE. SON WENT TO PATIENT'S HOME AND REPORTS HE CALLED THE SQU[facility] PATIENT WAS DISORIENTED AND UNABLE TO STAND UP. SON DENIES PATIENT MAKING ANY SUICIDAL COMMENTS AT THE HOME. SON DENIES ANY HISTORY OF MENTAL HEALTH FOR PATIENT. SON INFORMED PATIENT WAS RECENTLY IN CORRECTION AND HAS BEEN HOME FOR 3 WEEKS. SON STATES PATIENT CAN'T HANDLE PAIN AND THINKS PATIENT MAY BE MISUSING MEDICATIONS PATIENT HAS DONE THIS IN THE PAST. THIS WORKER FACILITATED PHONE CALL WITH DR. HUANG AND PATIENT'S SON. THIS WORKER TO REMAIN AVAILABLE FOR NEEDS. PLAN: ANTICIPATE ADMISSION PER DR. HUANG. Jessika BETTS, FINANCIAL ENGINEER, REAL ESTATE ACQUISITION ANALYST.
[2020-01-15 15:22] LABS: Differential Indicated SCAN CRITERIA MET
[2020-01-15 15:23] LABS: International Normalized Ratio 1.5; Prothrombin Time (Protime)PT. 18.4 SECONDS (11.7-14.9)
--- NOTE | 2020-01-15 15:24 | RAD_ITS ---
STUDY: X-RAY CHEST REASON FOR EXAM: Male, 74 years old. DECREASED LOC, PATIENT RECENT BACK SURGERY and amp; PRESCRIBED MORPHINE PILLS. PATIENT STATES HE TOOK TOO MANY, SUICIDAL TECHNIQUE: Single AP portable view of the chest. COMPARISON: Comparison is made with prior examination dated November 13, 2018. FINDINGS: EKG electrodes are seen. Mild increased markings at the lung bases suggestive of mild bibasilar atelectasis. There is no demonstrated pleural abnormality. There is borderline cardiomegaly. Normal mediastinum and gracie. Normal visualized pulmonary arteries. There is atherosclerotic tortuosity of the aortic arch and descending thoracic aorta. There are diffuse degenerative changes of the visualized thoracic spine. Prior fusion in the lower cervical spine. There is no demonstrated abnormality of the visualized soft tissue structures of the upper abdomen. RAD/Chest 1 View (Portable) IMPRESSION: Mild degree of increased markings at the lung bases suggestive of bibasilar atelectasis. Electronically Signed: Raghav Mark, at 15:36 EDT , Service support ,
[2020-01-15 15:31] LABS: AST(SGOT) 13 U/L (15-37); Alanine Aminotransfer ALT/SGPT 17 U/L (16-61); Albumin, Serum 3.8 g/dL (3.2-5.0); Alkaline Phosphatase 49 U/L (45-117); Anion Gap 10 (5-15); BUN 33 mg/dL (7-18); BUN/Creat Ratio 19.4 RATIO (10-20); Calcium,Total 8.9 mg/dL (8.5-10.1); Chloride 102 mmol/L (98-107); EST Glomerular Filtration Rate 42 mL/min (>60); Est Glom Filt Rate - Afr Amer 51 mL/min (>60); Globulin 3.8 g/dL (2.2-4.2); Glucose 262 mg/dL (74-106); Lipase 444 U/L (73-393); Potassium 4.2 mmol/L (3.5-5.1); Protein, Total 7.6 g/dL (6.4-8.2); Sodium Level 138 mmol/L (136-145)
[2020-01-15 15:33] LABS: Amphetamine Urine VISTA NEGATIVE (<1000 ng/mL); Barbiturate Urine VISTA NEGATIVE (< 200 ng/mL); Benzodiazepine Urine VISTA NEGATIVE (< 200 ng/mL); Cocaine Urine VISTA NEGATIVE (< 300 ng/mL); Ecstacy Urine VISTA NEGATIVE (< 500 ng/mL); Methadone Urine VISTA NEGATIVE (< 300 ng/mL); PCP Urine VISTA NEGATIVE (< 25 ng/mL); THC Urine VISTA NEGATIVE (< 50 ng/mL); Vista UDS pH Range 5
--- NOTE | 2020-01-15 15:38 | CM.ED ---
SOCIAL WORK FACE TO FACE WITH PATIENT IN ROOM. INQUIRED IF PATIENT HAD THOUGHTS OF SUICIDE OR THAT HE WOULD BE BETTER OFF . PATIENT YELLED NO. PATIENT'S SON CONFIRMING PATIENT WITH NO HISTORY OF MENTAL HEALTH OR SUICIDAL IDEATION. SON BELIEVES PATIENT MAY BE MISUSING PAIN MEDICATION PATIENT HAS HISTORY OF ABUSING MEDICATIONS IN THE PAST. STAFF UPDATED ON THE ABOVE. Jessika BETTS MSW, OUTREACH CLINICIAN.
--- NOTE | 2020-01-15 15:46 | ED.RN ---
PER DR. HUANG AND GISELLE MANCUSO PATIENT DOES NOT NEED A SITTER.
[2020-01-15 15:57] LABS: Differential Comment SCANNED
--- NOTE | 2020-01-15 16:11 | ED.RN ---
PER DR HUANG NO FLUID RESUSCITATION D/T PT FLUID OVERLOAD. RN WILL CONTINUE TO MONITOR.
[2020-01-15 16:35] LABS: BNP,B-Type NATRIURETIC PEPTIDE 114.3 pg/mL (0-100)
--- NOTE | 2020-01-15 17:48 | PCM.HP.STD ---
<Tho Salcedo - Last Filed: 01/15/20 17:48> Problem List (1) Cellulitis Status: Acute (2) Severe sepsis Status: Acute (3) Chronic pain syndrome Status: Chronic (4) Paroxysmal atrial fibrillation Status: Chronic (5) hypertension Status: Chronic (6) diabetes mellitus type II Status: Chronic (7) coronary artery disease Status: Chronic Comment: status post stent in 10/2013, following with Dr. Levine/ History of Present Illness Date of Admission: 01/15/20 Chief Complaint: confusion The patient is a 74 year old M with pmhx of back surgery discharged home alone from [facility] to a SNF to home about 1 week ago, hx CAD, DMt2, chronic pain, who presented to the ER with confusion. He had been started on lasix by his talent acquisition relationship manager, Neal Levine, earlier this week for LE edema thought at the time to be CHF.He called EMS for RLE pain and did not want transported, then EMS was called a second time for the same, and was found more lethargic and confused. He had made a comment prior to this about wanting to overdose on morphine, so they administered narcan. This did not help. In the ER he is not answering any of my questions appropriately. History obtained from records and ER staff. He continue to have ongoing RLE pain. He has been confused in the ER spitting and urinating on the floor. He will be admitted to the ICU for severe sepsis. [] Past Medical History Past Medical History (Chronic Problems): Chronic Problems Acute exacerbation of chronic low back pain (Chronic) Chronic back pain (Chronic) Chronic pain syndrome (Chronic) Chronic pain (Chronic) Paroxysmal atrial fibrillation (Chronic) NSTEMI (non-ST elevated myocardial infarction) (Chronic) hypertension (Chronic) diabetes mellitus type II (Chronic) coronary artery disease (Chronic) status post stent in 10/2013, following with Dr. Levine/ Allergies adhesive Allergy (Unknown, Verified 01/15/20 14:43) Unknown PER [employer] choline fenofibrate [From Trilipix] Allergy (Unknown, Verified 01/15/20 14:43) Unknown PER [employer] pregabalin [From Lyrica] Allergy (Unknown, Verified 01/15/20 14:43) Unknown PER [employer] Wcocckx-Urf-Cpq Reductase Inhibitor Allergy (Unknown, Verified 01/15/20 14:43) Unknown PER [employer] Sulfa (Sulfonamide Antibiotics) Allergy (Verified 01/15/20 14:43) Itching vancomycin Allergy (Verified 01/15/20 14:43) Itching Home Medications: Ambulatory Orders Medication Instructions Recorded Insulin Lispro [Humalog KwikPen] 34 unit SQ TIDCM 10/08/17 Isosorbide Mononitrate [Isosorbide 30 mg PO DAILY 10/08/17 Mononitrate ER] Albuterol Inhaler [Ventolin Hfa] 1 - 2 puff INHALATION DAILY PRN PRN 01/15/20 Clindamycin HCl 300 mg PO 4X/DAY 01/15/20 Surgical History: herniorrhaphy, - - rotator cuff repair, hernia repair, cardiac stent, lumbar laminectomy, hemorrhoidectomy, cervical fusion Psychiatric History: No pertinent psych hx Lives: Alone Smoking Status: Former smoker Tobacco Use: Non-smoker Alcohol: None Drugs: None - *Family History Paternal History Items: Cancer, Diabetes Maternal History Items: Diabetes, Heart Disease Review of Systems Constitutional: Denies: Chills, Fever, Weight Change HEENT: Denies: Head Aches, Sinus Congestion, Sinus Drainage Cardiovascular: Denies: Chest Pain, Palpitations Respiratory: Denies: Cough, Shortness of breath at rest, Sputum production Gastrointestinal: Denies: Abdominal Pain, Nausea, Vomiting Genitourinary: Denies: Dysuria Musculoskeletal: Denies: Joint Pain, Joint Tenderness Skin: Denies: Rash, Wounds Neurological: Denies: Numbness, Tingling, Focal weakness Psychiatric: Denies: Anxiety, Depression, Homicidal Ideations, Suicidal Ideations Hematologic/ Lymphatic: Denies: Easy Bruising, Easy Bleeding Unable to obtain accurate/complete ROS d/t: altered mental status VTE Information - Inpt Only VTE Present on Admission: No VTE Mechan Device Prophylaxis: None VTE Pharm Prophylaxis ordered?: Yes Patient Problems: Active and Suspected Problems Severe sepsis (Acute) Cellulitis of right leg without foot (Acute) Acute delirium (Acute) Cellulitis (Acute) - Physical Exam Vitals/I&O's: Vital Signs Temp Pulse Resp BP Pulse Ox 100.2 F H 103 H 17 153/73 H 96 01/15/20 17:44 01/15/20 17:44 01/15/20 17:44 01/15/20 17:44 01/15/20 17:44 Oxygen Delivery Method Room Air Weight: 182 lb 1.629 oz Body Mass Index (BMI) 29.4 Finger Stick Blood Glucose 131 Intake and Output for Last 24 Hours 01/13/20 01/14/20 01/15/20 23:59 23:59 23:59 Intake Total 1100 / 1100 Balance 1100 / 1100 General: Alert, Cooperative, Confused HEENT: Atraumatic, PERRLA, EOMI, Normocephalic Neck: Supple, No JVD, Negative Carotid Bruits Lungs: Clear to auscultation, Normal air movement Cardiovascular: Regular rate, No murmurs Abdomen: Bowel Sounds Present, Soft, Non Tender Extremities: No edema, Capillary Refill Less than 3 Seconds Skin: No rashes, No breakdown, - - RLE cellulitic changes, swelling, erythema, warmth. No drainage or collections. Very tender to light palp. Musculoskeletal: No Tenderness to Palpation of Joints or Extremities Neurological: Cranial nerves II-XII grossly intact Psych/Mental Status: Normal Affect, Appropriate, Alert and oriented to time, place, person, mood and affect Laboratory Results 01/15/20 14:50: Urine Color Yellow, Urine Clarity Clear, Urine pH 6.0, Ur Specific [place] 1.010, Urine Protein Negative, Urine Glucose (UA) 50 H, Urine Ketones Negative, Urine Occult Blood Negative, Urine Nitrite Negative, Urine Bilirubin Negative, Urine Urobilinogen Normal, Ur Leukocyte Esterase Negative, Urine RBC 0 SEEN, Urine WBC 0 SEEN, Ur Squamous Epith Cells 0 SEEN, Urine Bacteria 0 SEEN, Urine Mucus 0 SEEN 01/15/20 14:50: Urine Opiates Screen POSITIVE H, Urine Methadone Screen NEGATIVE, Ur Barbiturates Screen NEGATIVE, Ur Phencyclidine Scrn NEGATIVE, Ur Amphetamines Screen NEGATIVE, U Methamphetamin-MDMA NEGATIVE, U Benzodiazepines Scrn NEGATIVE, Urine Cocaine Screen NEGATIVE, U Cannabinoids Screen NEGATIVE, Ur Drug Screen Comment 01/15/20 14:51: PT 18.4 H, INR 1.5 01/15/20 14:51: Sodium 138, Potassium 4.2, Chloride 102, Carbon Dioxide 26.0, Anion Gap 10, BUN 33 H, Creatinine 1.70 H, Estim Creat Clear Calc 34.40, Est GFR (MDRD) Af Amer 51 L, Est GFR (MDRD) Non-Af 42 L, BUN/Creatinine Ratio 19.4, Glucose 262 H, Calcium 8.9, Total Bilirubin 0.50, AST 13 L, ALT 17, Alkaline Phosphatase 49, Troponin I < 0.015, Total Protein 7.6, Albumin 3.8, Globulin 3.8, Albumin/Globulin Ratio 1.0, Lipase 444 H 01/15/20 14:55: WBC 18.9 H, RBC 4.07 L, Hgb 10.1 L, Hct 33.0 L, MCV 81.1, MCH 24.8 L, MCHC 30.6 L, RDW Std Deviation 44.5 H, RDW Coeff of Maria Luisa 15.2 H, Plt Count 289, MPV 8.7, Immature Gran % (Auto) 1.300 H, Neut % (Auto) 80.7 H, Lymph % (Auto) 7.1 L, [place] % (Auto) 10.4 H, Eos % (Auto) 0.2, Baso % (Auto) 0.3, Absolute Neuts (auto) 15.3 H, Absolute Lymphs (auto) 1.35, Nucleated RBC % 0, Differential Comment SCANNED, Diff Path Review February01/15/20 14:55: Ethyl Alcohol 9.0 01/15/20 14:55: B-Natriuretic Peptide 114.3 H 01/15/20 15:15: Lactic Acid 3.0 H* Assessment/Plan All Active Problems Severe sepsis (Acute) Cellulitis of right leg without foot (Acute) Acute delirium (Acute) Cellulitis (Acute) Encephalopathy acute (Resolved) Pneumonia (Resolved) Severe sepsis with acute organ dysfunction (Resolved) 1. Severe sepsis 2/2 cellulitis RLE - lactate 3.0, leukocytosis, tachycardia, fever 100.2. Continue zosyn. ?vanco allergy. No drainage or collections. No prior hx of cellulitis / abscess. RLE swelling. Obtain venous US. Blood cx pending. CXR negative. UA negative. 2. Acute toxic vs metabolic encephalopathy - possibly due to extra morphine doses, or due to sepsis. minimize opiates. hold flexaril. CT brain chronic changes. 3. Chronic pain due to DDD, recent surgery [facility]. Possibly took extra morphine doses at home. Prior visit with concern for drug seeking behavior. 4. DMt2 - SSI, continue TID insulin. 5. CKDIII - trend. gentle IV fluids. DVT ppx: lovenox DC planning: may need to go back to SNF. Obtain PTOT evals. This patient was seen by Tho Salcedo PA-C under the supervision of Dr. Roblero. <Ailyn Roblero - Last Filed: 01/15/20 18:39> History of Present Illness The patient is a 74 year old M [] Past Medical History Allergies adhesive Allergy (Unknown, Verified 01/15/20 14:43) Unknown PER [employer] choline fenofibrate [From Trilipix] Allergy (Unknown, Verified 01/15/20 14:43) Unknown PER [employer] pregabalin [From Lyrica] Allergy (Unknown, Verified 01/15/20 14:43) Unknown PER [employer] Ljstesh-Axq-Bnu Reductase Inhibitor Allergy (Unknown, Verified 01/15/20 14:43) Unknown PER [employer] Sulfa (Sulfonamide Antibiotics) Allergy (Verified 01/15/20 14:43) Itching vancomycin Allergy (Verified 01/15/20 14:43) Itching - Physical Exam Vitals/I&O's: Vital Signs Temp Pulse Resp BP Pulse Ox 100.2 F H 103 H 17 153/73 H 96 01/15/20 17:44 01/15/20 17:44 01/15/20 17:44 01/15/20 17:44 01/15/20 17:44 Oxygen Delivery Method Room Air Weight: 82.6 kg Body Mass Index (BMI) 29.4 Finger Stick Blood Glucose 131 Intake and Output for Last 24 Hours 01/13/20 01/14/20 01/15/20 23:59 23:59 23:59 Intake Total 1100 / 1100 Balance 1100 / 1100 Laboratory Results 01/15/20 14:50: Urine Color Yellow, Urine Clarity Clear, Urine pH 6.0, Ur Specific [place] 1.010, Urine Protein Negative, Urine Glucose (UA) 50 H, Urine Ketones Negative, Urine Occult Blood Negative, Urine Nitrite Negative, Urine Bilirubin Negative, Urine Urobilinogen Normal, Ur Leukocyte Esterase Negative, Urine RBC 0 SEEN, Urine WBC 0 SEEN, Ur Squamous Epith Cells 0 SEEN, Urine Bacteria 0 SEEN, Urine Mucus 0 SEEN 01/15/20 14:50: Urine Opiates Screen POSITIVE H, Urine Methadone Screen NEGATIVE, Ur Barbiturates Screen NEGATIVE, Ur Phencyclidine Scrn NEGATIVE, Ur Amphetamines Screen NEGATIVE, U Methamphetamin-MDMA NEGATIVE, U Benzodiazepines Scrn NEGATIVE, Urine Cocaine Screen NEGATIVE, U Cannabinoids Screen NEGATIVE, Ur Drug Screen Comment 01/15/20 14:51: PT 18.4 H, INR 1.5 01/15/20 14:51: Sodium 138, Potassium 4.2, Chloride 102, Carbon Dioxide 26.0, Anion Gap 10, BUN 33 H, Creatinine 1.70 H, Estim Creat Clear Calc 34.40, Est GFR (MDRD) Af Amer 51 L, Est GFR (MDRD) Non-Af 42 L, BUN/Creatinine Ratio 19.4, Glucose 262 H, Calcium 8.9, Total Bilirubin 0.50, AST 13 L, ALT 17, Alkaline Phosphatase 49, Troponin I < 0.015, Total Protein 7.6, Albumin 3.8, Globulin 3.8, Albumin/Globulin Ratio 1.0, Lipase 444 H 01/15/20 14:55: WBC 18.9 H, RBC 4.07 L, Hgb 10.1 L, Hct 33.0 L, MCV 81.1, MCH 24.8 L, MCHC 30.6 L, RDW Std Deviation 44.5 H, RDW Coeff of Maria Luisa 15.2 H, Plt Count 289, MPV 8.7, Immature Gran % (Auto) 1.300 H, Neut % (Auto) 80.7 H, Lymph % (Auto) 7.1 L, [place] % (Auto) 10.4 H, Eos % (Auto) 0.2, Baso % (Auto) 0.3, Absolute Neuts (auto) 15.3 H, Absolute Lymphs (auto) 1.35, Nucleated RBC % 0, Differential Comment SCANNED, Diff Path Review February01/15/20 14:55: Ethyl Alcohol 9.0 01/15/20 14:55: B-Natriuretic Peptide 114.3 H 01/15/20 15:15: Lactic Acid 3.0 H* Assessment/Plan This patient was seen in conjunction with THAO Weinstein. I have independently interviewed and examined the patient and reviewed pertinent historical, laboratory, and other data. Please refer to THAO Weinstein note for his patient's presentation, findings, and recommendations. I have reviewed and his note and concur with his documentation History was obtained from the patient's son as patient is confused : 74y/o male with PMhx of CAD s/p stents, chronic pain syndrome, history of recent back surgery on 05 December, done in [facility], [facility] He was at the rehab center and discharged home on 01 January. Patient lives alone. He has not had much contact. His son saw him a day before admission and patient was complaining of pain in his legs. He went to his pain management doctor yesterday. He had followed up on the virtual telehealth visit with his primary care doctor and was prescribed clindamycin. He took 1 dose of clindamycin this morning. Patient had called the EMS on account of severe pain in both legs. He was on his way to the hospital when he decided not to go to the hospital anymore and was brought to the house. He later on called the EMS again with suicidal intent on overdosing on his pain medications. He appeared more confused. He received a dose of Narcan with no change. He has a history of multiple surgeries including carpal tunnel surgeries, rotator cuff surgeries. He has a history of CAD status post stent, CKD, DM Physical Exam: Gen: Confused, oriented to self, not pale, not jaundiced CVS: HS I +II, regular, no murmurs RESP: CTA GI: Obese, bilateral paraumbilical/spigelian hernias, soft, slightly tender,BS present and normal, soft, no palpable organs EXT: Right lower leg swelling with erythema worse in the mid leg, area of fluctuance, slight purulent blister ASSESSMENT: 1. Severe sepsis secondary to right lower leg cellulitis 2. Possible right lower leg DVT 3. Acute toxic/metabolic encephalopathy 4. Chronic pain syndrome 5. Type 2 DM 6. CKD stage 3 Plan: Admit to ICU, follow sepsis protocol, repeat lactic acid Hold home morphine dose Would continue on scheduled Tylenol, oxycodone as needed Clarify home med list with pharmacy Lovenox 1 mg/kg x 1 pending Doppler ultrasound of the right leg Continue on Humalog 34 units 3 times daily as well as ISS pending clarification of his home med list Repeat CBCD, CMP in a.m. Inpatient E&M: [id number] Init Hosp L3
[2020-01-15] MEDS: Acetaminophen 500 MG Tablet 1000 MG PO (18:35)
[2020-01-15] MEDS: 0.9% Normal Saline 1,000 ML 130 ML IV (19:16)
[2020-01-15 19:18] LABS: Reflex Lactate? Y
[2020-01-15] MEDS: Enoxaparin 80 MG/0.8 ML Syringe SC (19:59)
[2020-01-15] MEDS: 0.9% Saline Lock 10 ML Syringe IV (20:00)
[2020-01-15 20:52] LABS: Lactic Acid 2.1 mmol/L (0.4-1.9)
[2020-01-16] VITALS (24 sets, daily range): BP systolic 102–175; BP diastolic 49–89; PULSE 68–126; RESP 16–24; TEMP 37.1–38.4; O2SAT 92–100
[2020-01-16 00:11] LABS: Bedside Glucose 163 mg/dL (70-110)
[2020-01-16] MEDS: 0.9% Normal Saline 1,000 ML 130 ML IV (03:02)
[2020-01-16 03:11] LABS: Bedside Glucose 138 mg/dL (70-110)
[2020-01-16] MEDS: oxyCODONE 5 MG Tablet PO ×2 (03:24→11:56)
[2020-01-16 04:32] LABS: ALB/GLOB Ratio 0.9 RATIO (0.9-2.4); AST(SGOT) 19 U/L (15-37); Absolute Lymphocyte Count 2.61 X10^3/uL (0.83-4.51); Absolute Neutrophil Count 13.6 X10^3/uL (2.0-7.7); Alanine Aminotransfer ALT/SGPT 16 U/L (16-61); Albumin, Serum 3.3 g/dL (3.2-5.0); Alkaline Phosphatase 47 U/L (45-117); Anion Gap 9 (5-15); BUN 26 mg/dL (7-18); BUN/Creat Ratio 17.7 RATIO (10-20); Basophil# 0.07 X10^3/uL; Basophil% 0.4 % (0-1); Calcium,Total 8.6 mg/dL (8.5-10.1); Chloride 102 mmol/L (98-107); Creatinine, Serum 1.47 mg/dL (0.70-1.30); EST Glomerular Filtration Rate 50 mL/min (>60); Eosinophil# 0.07 X10^3/uL; Eosinophils% 0.4 % (0-5); Est Glom Filt Rate - Afr Amer 60 mL/min (>60); Estimated Creatinine Clearance 39.78 ml/min; Globulin 3.6 g/dL (2.2-4.2); Glucose 162 mg/dL (74-106); Hematocrit 31.9 % (40-54); Hemoglobin 9.9 g/dL (13.0-16.5); Lymphocyte # 2.61 X10^3/ul (4.0); Lymphocyte % 13.7 % (19-41); Mean Corpuscular Hgb 24.9 pg (27.0-32.0); Mean Corpuscular Volume 80.2 fL (80-94); Mean Platelet Vol. 9.1 fl (6.2-12.0); Monocyte# 2.58 X10^3/uL; Monocyte% 13.5 % (0-10); NRBC Flagged by Analyzer 0 % (0-5); Neutrophil # 13.57 X10^3/uL (2.7-7.7); Neutrophil % 71.1 % (47-70); POSITIVE DIFFERENTIAL YES; Platelet Count 273 K/mm3 (150-450); Potassium 3.7 mmol/L (3.5-5.1); Protein, Total 6.9 g/dL (6.4-8.2); RBC Distribution Width CV 15.4 % (11.6-14.6); Red Blood Count 3.98 M/mm3 (4.6-6.2); Sodium Level 138 mmol/L (136-145); White Blood Count 19.1 K/mm3 (4.4-11.0)
[2020-01-16 04:56] LABS: Differential Indicated SCAN CRITERIA MET
[2020-01-16 05:31] LABS: Platelet Estimate ADEQUATE (ADEQ); Reactive Lymphocyte RARE
[2020-01-16] MEDS: Acetaminophen 500 MG Tablet 1000 MG PO ×3 (05:46→22:18)
[2020-01-16] MEDS: Ondansetron 4 MG/2 ML Vial IV (06:48)
[2020-01-16] MEDS: 0.9% Saline Lock 10 ML Syringe IV (06:48)
--- NOTE | 2020-01-16 07:26 | PCM.CON.CC ---
Problem List (1) Severe sepsis Status: Acute (2) Cellulitis of right leg without foot Status: Acute (3) Acute delirium Status: Acute (4) Chronic back pain Status: Chronic Qualifiers: Back pain laterality: unspecified Sciatica laterality: sciatica laterality unspecified (5) Chronic pain syndrome Status: Chronic (6) hypertension Status: Chronic (7) diabetes mellitus type II Status: Chronic (8) coronary artery disease Status: Chronic Comment: status post stent in 10/2013, following with Dr. Levine/ Reason for Consult Date of Consultation: 01/16/20 Reason for Consultation: Severe sepsis History of Present Illness: The patient is a 74 year old M, with past medical history listed below, who presented to [facility] on 01/15/2020 secondary to change in mental status. Patient called for EMS evaluation earlier in the day secondary to right leg pain, but refused transportation. Patient reportedly had had significant back and leg pain associated with back surgery 5 weeks previous and had suggested possible suicide attempt. When EMS arrived, patient was lethargic and confused and gave him Narcan without significant improvement. Patient was transported to the ER for further evaluation. On arrival, patient's vital signs were stable and he was afebrile. Patient was noted to have a diastolic heart murmur, but this was thought to be baseline. Patient was interactive, but not answering appropriately. Right lower extremity was found to be sore and reddened. Patient was initiated on appropriate antibiotics and admitted to the intensive care unit for further evaluation. Overnight in the intensive care unit, patient has remained confused, but has remained directable. Patient did have an episode of emesis this morning, but no santino aspiration. Patient is requiring minimal nasal cannula oxygen to maintain saturations. Patient is not able to provide any history such as a review of systems. Past Medical History Past Medical History (Chronic Problems): Chronic Problems Acute exacerbation of chronic low back pain (Chronic) Chronic back pain (Chronic) Chronic pain syndrome (Chronic) Chronic pain (Chronic) Paroxysmal atrial fibrillation (Chronic) NSTEMI (non-ST elevated myocardial infarction) (Chronic) hypertension (Chronic) diabetes mellitus type II (Chronic) coronary artery disease (Chronic) status post stent in 10/2013, following with Dr. Levine/ Allergies adhesive Allergy (Unknown, Verified 01/15/20 14:43) Unknown PER [facility] choline fenofibrate [From Trilipix] Allergy (Unknown, Verified 01/15/20 14:43) Unknown PER [facility] pregabalin [From Lyrica] Allergy (Unknown, Verified 01/15/20 14:43) Unknown PER [facility] Mmdgbbc-Lde-Gxb Reductase Inhibitor Allergy (Unknown, Verified 01/15/20 14:43) Unknown PER [facility] Sulfa (Sulfonamide Antibiotics) Allergy (Verified 01/15/20 14:43) Itching vancomycin Allergy (Verified 01/15/20 14:43) Itching Home Medications: Ambulatory Orders Medication Instructions Recorded Insulin Lispro [Humalog KwikPen] 34 unit SQ TIDCM 10/08/17 Isosorbide Mononitrate [Isosorbide 30 mg PO DAILY 10/08/17 Mononitrate ER] Albuterol Inhaler [Ventolin Hfa] 1 - 2 puff INHALATION DAILY PRN PRN 01/15/20 Betamethasone/Propylene Glyc 1 applicatio TOPICAL BID 01/15/20 [Betamethasone Dp Aug 0.05% Crm] Clindamycin HCl 300 mg PO 4X/DAY 01/15/20 Mometasone Furoate/Dimethicone 1 applicatio TOPICAL BID 01/15/20 [Quinixil 0.1% Cream-5% Crm Kit] Mupirocin 1 applicatio TOPICAL TID 01/15/20 Prednisone 10 mg PO DAILY 01/15/20 Surgical History: herniorrhaphy, - - rotator cuff repair, hernia repair, cardiac stent, lumbar laminectomy, hemorrhoidectomy, cervical fusion Psychiatric History: No pertinent psych hx Lives: Alone Smoking Status: Former smoker Tobacco Use: Non-smoker Alcohol: None Drugs: None - *Family History Paternal History Items: Cancer, Diabetes Maternal History Items: Diabetes, Heart Disease Patient Problems: Active and Suspected Problems Severe sepsis (Acute) Cellulitis of right leg without foot (Acute) Acute delirium (Acute) Cellulitis (Acute) Objective: Chest x-ray was personally reviewed and was within normal limits. Patient did have an echocardiogram on 05/05/2018 showing EF of 65% with diastolic dysfunction and an pulmonary artery pressure of 32 mmHg. There was mild to moderate aortic stenosis reported in a moderately dilated ascending aorta. Patient also had a PFT on 02/07/2017 that was within normal limits. - Physical Exam Vitals/I&O's: Vital Signs Temp Pulse Resp BP Pulse Ox 37.2 C 92 24 H 130/61 H 98 01/16/20 07:00 01/16/20 07:00 01/16/20 07:00 01/16/20 07:00 01/16/20 07:00 Oxygen Flow Rate (L/min) 2 Oxygen Delivery Method Nasal Cannula Weight: 79.4 kg Body Mass Index (BMI) 28.1 Finger Stick Blood Glucose 131 Intake and Output for Last 24 Hours 01/14/20 01/15/20 01/16/20 23:59 23:59 23:59 Intake Total 1100 / 1100 1290 / 1290 Output Total 750 / 750 Balance 1100 / 800 540 / 540 General: Alert, Confused, Disoriented, - - Follows commands. Obese. HEENT: Atraumatic, PERRLA, EOMI, Normocephalic, - - No scleral icterus or injection noted Oral: Moist Mucosa, No Gingival or Mucosal Lesions/ Ulcerations Neck: Supple, No JVD, No Nodes, Trachea Midline Lungs: Normal air movement, No rhonchi, No wheeze, No rales Cardiovascular: Normal S1, Normal S2, Irregular Rate, Murmur - Grade 2 out of 6 systolic ejection murmur at the right sternal border, No rub noted, No Gallop Abdomen: Bowel Sounds Present, Soft, Non Tender, Distended - Slightly Extremities: No clubbing, No cyanosis, Edema - Right greater than left Skin: Rash Present - Significant erythema noted of the right lower extremity to just below the knee. There is an area of more intense redness and heat in the mid sanchez Musculoskeletal: Tenderness - Right lower extremity Lymphatic: No Cervical, Supraclavicular, or Inguinal Adenopathy Neurological: Cranial nerves II-XII grossly intact, Neuro grossly intact, Motor Exam 5/5 strength throughout Psych/Mental Status: Anxious, Restless Laboratory Results 01/15/20 14:50: Urine Color Yellow, Urine Clarity Clear, Urine pH 6.0, Ur Specific [place] 1.010, Urine Protein Negative, Urine Glucose (UA) 50 H, Urine Ketones Negative, Urine Occult Blood Negative, Urine Nitrite Negative, Urine Bilirubin Negative, Urine Urobilinogen Normal, Ur Leukocyte Esterase Negative, Urine RBC 0 SEEN, Urine WBC 0 SEEN, Ur Squamous Epith Cells 0 SEEN, Urine Bacteria 0 SEEN, Urine Mucus 0 SEEN 01/15/20 14:50: Urine Opiates Screen POSITIVE H, Urine Methadone Screen NEGATIVE, Ur Barbiturates Screen NEGATIVE, Ur Phencyclidine Scrn NEGATIVE, Ur Amphetamines Screen NEGATIVE, U Methamphetamin-MDMA NEGATIVE, U Benzodiazepines Scrn NEGATIVE, Urine Cocaine Screen NEGATIVE, U Cannabinoids Screen NEGATIVE, Ur Drug Screen Comment 01/15/20 14:51: PT 18.4 H, INR 1.5 01/15/20 14:51: Sodium 138, Potassium 4.2, Chloride 102, Carbon Dioxide 26.0, Anion Gap 10, BUN 33 H, Creatinine 1.70 H, Estim Creat Clear Calc 34.40, Est GFR (MDRD) Af Amer 51 L, Est GFR (MDRD) Non-Af 42 L, BUN/Creatinine Ratio 19.4, Glucose 262 H, Calcium 8.9, Total Bilirubin 0.50, AST 13 L, ALT 17, Alkaline Phosphatase 49, Troponin I < 0.015, Total Protein 7.6, Albumin 3.8, Globulin 3.8, Albumin/Globulin Ratio 1.0, Lipase 444 H 01/15/20 14:55: WBC 18.9 H, RBC 4.07 L, Hgb 10.1 L, Hct 33.0 L, MCV 81.1, MCH 24.8 L, MCHC 30.6 L, RDW Std Deviation 44.5 H, RDW Coeff of Maria Luisa 15.2 H, Plt Count 289, MPV 8.7, Immature Gran % (Auto) 1.300 H, Neut % (Auto) 80.7 H, Lymph % (Auto) 7.1 L, Price % (Auto) 10.4 H, Eos % (Auto) 0.2, Baso % (Auto) 0.3, Absolute Neuts (auto) 15.3 H, Absolute Lymphs (auto) 1.35, Nucleated RBC % 0, Differential Comment SCANNED, Diff Path Review February foll 01/15/20 14:55: Ethyl Alcohol 9.0 01/15/20 14:55: B-Natriuretic Peptide 114.3 H 01/15/20 15:15: Lactic Acid 3.0 H* 01/15/20 19:55: Lactic Acid 2.1 H* 01/15/20 22:12: POC Glucose 163 H 01/16/20 03:04: POC Glucose 138 H 01/16/20 04:05: WBC 19.1 H, RBC 3.98 L, Hgb 9.9 L, Hct 31.9 L, MCV 80.2, MCH 24.9 L, MCHC 31.0 L, RDW Std Deviation 45.0 H, RDW Coeff of Maria Luisa 15.4 H, Plt Count 273, MPV 9.1, Immature Gran % (Auto) 0.900, Neut % (Auto) 71.1 H, Lymph % (Auto) 13.7 L, Price % (Auto) 13.5 H, Eos % (Auto) 0.4, Baso % (Auto) 0.4, Absolute Neuts (auto) 13.6 H, Absolute Lymphs (auto) 2.61, Nucleated RBC % 0, Differential Comment , Diff Path Review May , Reactive Lymphocytes RARE, Platelet Estimate ADEQUATE 01/16/20 04:05: Sodium 138, Potassium 3.7, Chloride 102, Carbon Dioxide 27.0, Anion Gap 9, BUN 26 H, Creatinine 1.47 H, Estim Creat Clear Calc 39.78, Est GFR (MDRD) Af Amer 60, Est GFR (MDRD) Non-Af 50 L, BUN/Creatinine Ratio 17.7, Glucose 162 H, Calcium 8.6, Total Bilirubin 0.80, AST 19, ALT 16, Alkaline Phosphatase 47, Total Protein 6.9, Albumin 3.3, Globulin 3.6, Albumin/Globulin Ratio 0.9 Current Medications Acetaminophen (Tylenol) 1,000 mg PO TID [facility] Last Admin: 01/16/20 05:46 Dose: 1,000 mg Documented by: Dextrose (D50w Syringe) 0 gm IV X1 PRN; Protocol PRN Reason: Hypoglycemia Glucagon () 1 mg IM .X1 PRN PRN Reason: Hypoglycemia Sodium Chloride () 1,000 mls @ 130 mls/hr IV .Q7H42M [facility] Stop: 01/16/20 10:13 Last Admin: 01/16/20 03:02 Dose: 130 mls/hr Documented by: Piperacillin Sod/Tazobactam (Sod 3.375 gm/ Sodium Chloride) 50 mls @ 12.5 mls/hr IV Q8 [facility] Last Admin: 01/16/20 05:46 Dose: 12.5 mls/hr Documented by: Insulin Human Lispro (Humalog Kwikpen (Bkc)) 34 unit SC TIDCM [facility] Insulin Human Lispro (Humalog Kwikpen ([facility])) 0 unit SC ACHS [facility]; Protocol Last Admin: 01/15/20 22:14 Dose: Not Given Documented by: Isosorbide Mononitrate (Imdur) 30 mg PO DAILY [facility] Nitroglycerin (Nitrostat) 0.4 mg SUBLINGUAL Q5M PRN PRN Reason: CARDIAC/CHEST PAIN Ondansetron HCl (Zofran) 4 mg IV Q6H PRN PRN PRN Reason: NAUSEA/VOMITING Last Admin: 01/16/20 06:48 Dose: 4 mg Documented by: Oxycodone HCl (Oxyir) 5 mg PO Q6H PRN PRN PRN Reason: Pain Score 6-10/10 Last Admin: 01/16/20 03:24 Dose: 5 mg Documented by: Sodium Chloride () 10 - 40 ml IV UD PRN PRN Reason: SALINE FLUSH Last Admin: 01/16/20 06:48 Dose: 10 ml Documented by: Clinical Impression(s) from Imaging Studies Brain CT 01/15/20 14:40 IMPRESSION: Chronic involutional changes of the brain. Electronically Signed: Raghav Mark, at 15:44 EDT , Service support , Chest X-Ray 01/15/20 15:24 IMPRESSION: Mild degree of increased markings at the lung bases suggestive of bibasilar atelectasis. Electronically Signed: Raghav Mark at 15:36 EDT , Service support , Assessment/Plan Active and Suspected Problems Severe sepsis (Acute) Cellulitis of right leg without foot (Acute) Acute delirium (Acute) Cellulitis (Acute) RECOMMENDATIONS: 1. Consider transition to Ancef 2. Zofran as needed for nausea 3. Consider bowel rest for mild pancreatitis 4. Wean oxygen as tolerated 5. Monitor for withdrawal symptoms 6. Follow blood sugars closely 7. Okay to leave the intensive care unit from my perspective IMPRESSIONS: 1. Severe sepsis secondary to right lower leg cellulitis Patient does have significant erythema and redness to the touch of the right lower extremity. Access point appears to be in the mid sanchez area. This area will be demarcated. Likely does not require broad gram-negative coverage with Zosyn and Ancef would likely be sufficient as patient has no history of MRSA previously. Blood pressures have been adequate. 2. Acute toxic/metabolic encephalopathy Unclear etiology. May be secondary to sepsis. Patient does have opiates secondary to chronic pain syndrome also. Patient's respiratory status appears to be appropriate at this time. Patient does appear to have some mild pancreatitis. Recommend delirium protocol. We will also have to watch for withdrawal symptoms from both opiates and alcohol. 3. Chronic pain syndrome/type 2 diabetes mellitus/CKD stage III/advanced age/poor historian Complicates care, management, recovery and prognosis. We will have to watch blood sugars closely given acute illness. Renal function appears to be at its baseline at this time. Blood pressure is slightly elevated and is likely okay to continue baseline antihypertensive medications from my perspective. Inpatient E&M: 21388 Init Hosp L3
[2020-01-16] MEDS: Insulin Lispro 100 UNIT/ML INSULN.PEN SC ×2 (08:27→16:57)
[2020-01-16 08:30] LABS: Bedside Glucose 170 mg/dL (70-110)
[2020-01-16] MEDS: Insulin Lispro 100 UNIT/ML INSULN.PEN 34 UNIT SC (08:31)
--- NOTE | 2020-01-16 08:42 | PN_ITS ---
Patient Problems: Active and Suspected Problems Severe sepsis (Acute) Cellulitis of right leg without foot (Acute) Acute delirium (Acute) Cellulitis (Acute) Subjective: States that he feels little bit better today, no issues overnight, he did have an episode of emesis this morning but no signs of aspiration. Vitals/I&O's: Vital Signs Temp Pulse Resp BP Pulse Ox 99.9 F H 75 21 H 115/49 L 98 01/16/20 08:00 01/16/20 08:00 01/16/20 08:00 01/16/20 08:00 01/16/20 08:00 Oxygen Flow Rate (L/min) 2 Oxygen Delivery Method Nasal Cannula Weight: 175 lb 0.752 oz Body Mass Index (BMI) 28.1 Finger Stick Blood Glucose 131 Intake and Output for Last 24 Hours 01/14/20 01/15/20 01/16/20 23:59 23:59 23:59 Intake Total 1100 / 1100 1290 / 1290 Output Total 750 / 750 Balance 1100 / 800 540 / 540 General: Alert, Cooperative, No apparent distress, Disoriented HEENT: Atraumatic, PERRLA, EOMI, Normocephalic Oral: Dry Mucosa Neck: Supple, No JVD Lungs: Clear to auscultation, Normal air movement, No rhonchi, No wheeze, No rales, Diminished Cardiovascular: Regular rate, Regular Rhythm, Normal S1, Normal S2, Murmur - 2 out of 6 CELENA in the right upper sternal border Abdomen: Soft, Non Tender, Non-Distended, No Hepato-splenomegaly Extremities: Capillary Refill Less than 3 Seconds, Edema - Trace bilaterally Skin: - - Erythema on his anterior sanchez on the right Neurological: Neuro grossly intact, Sensory exam intact to light touch and pain Psych/Mental Status: Normal Affect, Appropriate Laboratory Results 01/15/20 14:50: Urine Color Yellow, Urine Clarity Clear, Urine pH 6.0, Ur Specific [place] 1.010, Urine Protein Negative, Urine Glucose (UA) 50 H, Urine Ketones Negative, Urine Occult Blood Negative, Urine Nitrite Negative, Urine Bilirubin Negative, Urine Urobilinogen Normal, Ur Leukocyte Esterase Negative, Urine RBC 0 SEEN, Urine WBC 0 SEEN, Ur Squamous Epith Cells 0 SEEN, Urine Amelia teria 0 SEEN, Urine Mucus 0 SEEN 01/15/20 14:50: Urine Opiates Screen POSITIVE H, Urine Methadone Screen NEGATIVE, Ur Barbiturates Screen NEGATIVE, Ur Phencyclidine Scrn NEGATIVE, Ur Amphetamines Screen NEGATIVE, U Methamphetamin-MDMA NEGATIVE, U Benzodiazepines Scrn NEGATIVE, Urine Cocaine Screen NEGATIVE, U Cannabinoids Screen NEGATIVE, Ur Drug Screen Comment 01/15/20 14:51: PT 18.4 H, INR 1.5 01/15/20 14:51: Sodium 138, Potassium 4.2, Chloride 102, Carbon Dioxide 26.0, Anion Gap 10, BUN 33 H, Creatinine 1.70 H, Estim Creat Clear Calc 34.40, Est GFR (MDRD) Af Amer 51 L, Est GFR (MDRD) Non-Af 42 L, BUN/Creatinine Ratio 19.4, Glucose 262 H, Calcium 8.9, Total Bilirubin 0.50, AST 13 L, ALT 17, Alkaline Phosphatase 49, Troponin I < 0.015, Total Protein 7.6, Albumin 3.8, Globulin 3.8, Albumin/Globulin Ratio 1.0, Lipase 444 H 01/15/20 14:55: WBC 18.9 H, RBC 4.07 L, Hgb 10.1 L, Hct 33.0 L, MCV 81.1, MCH 24.8 L, MCHC 30.6 L, RDW Std Deviation 44.5 H, RDW Coeff of Maria Luisa 15.2 H, Plt Count 289, MPV 8.7, Immature Gran % (Auto) 1.300 H, Neut % (Auto) 80.7 H, Lymph % (Auto) 7.1 L, [place] % (Auto) 10.4 H, Eos % (Auto) 0.2, Baso % (Auto) 0.3, Absolute Neuts (auto) 15.3 H, Absolute Lymphs (auto) 1.35, Nucleated RBC % 0, Differential Comment SCANNED, Diff Path Review May foll 01/15/20 14:55: Ethyl Alcohol 9.0 01/15/20 14:55: B-Natriuretic Peptide 114.3 H 01/15/20 15:15: Lactic Acid 3.0 H* 01/15/20 19:55: Lactic Acid 2.1 H* 01/15/20 22:12: POC Glucose 163 H 01/16/20 03:04: POC Glucose 138 H 01/16/20 04:05: WBC 19.1 H, RBC 3.98 L, Hgb 9.9 L, Hct 31.9 L, MCV 80.2, MCH 24.9 L, MCHC 31.0 L, RDW Std Deviation 45.0 H, RDW Coeff of Maria Luisa 15.4 H, Plt Count 273, MPV 9.1, Immature Gran % (Auto) 0.900, Neut % (Auto) 71.1 H, Lymph % (Auto) 13.7 L, [place] % (Auto) 13.5 H, Eos % (Auto) 0.4, Baso % (Auto) 0.4, Absolute Neuts (auto) 13.6 H, Absolute Lymphs (auto) 2.61, Nucleated RBC % 0, Differential Comment , Diff Path Review February, Reactive Lymphocytes RARE, Platelet Estimate ADEQUATE 01/16/20 04:05: Sodium 138, Potassium 3.7, Chloride 102, Carbon Dioxide 27.0, Anion Gap 9, BUN 26 H, Creatinine 1.47 H, Estim Creat Clear Calc 39.78, Est GFR (MDRD) Af Amer 60, Est GFR (MDRD) Non-Af 50 L, BUN/Creatinine Ratio 17.7, Glucose 162 H, Calcium 8.6, Total Bilirubin 0.80, AST 19, ALT 16, Alkaline Phosphatase 47, Total Protein 6.9, Albumin 3.3, Globulin 3.6, Albumin/Globulin Ratio 0.9 01/16/20 08:02: POC Glucose 170 H Current Medications Acetaminophen (Tylenol) 1,000 mg PO TID [facility] Last Admin: 01/16/20 05:46 Dose: 1,000 mg Documented by: Dextrose (D50w Syringe) 0 gm IV X1 PRN; Protocol PRN Reason: Hypoglycemia Glucagon () 1 mg IM .X1 PRN PRN Reason: Hypoglycemia Sodium Chloride () 1,000 mls @ 130 mls/hr IV .Q7H42M [facility] Stop: 01/16/20 10:13 Last Admin: 01/16/20 03:02 Dose: 130 mls/hr Documented by: Cefazolin Sodium 2 gm/ Sodium (Chloride) 110 mls @ 150 mls/hr IV Q8 [facility] Insulin Human Lispro (Humalog Kwikpen (Bkc)) 34 unit SC TIDCM [facility] Last Admin: 01/16/20 08:31 Dose: 17 u Documented by: Insulin Human Lispro (Humalog Kwikpen (Bkc)) 0 unit SC ACHS [facility]; Protocol Last Admin: 01/16/20 08:27 Dose: 1 u Documented by: Isosorbide Mononitrate (Imdur) 30 mg PO DAILY [facility] Nitroglycerin (Nitrostat) 0.4 mg SUBLINGUAL Q5M PRN PRN Reason: CARDIAC/CHEST PAIN Ondansetron HCl (Zofran) 4 mg IV Q6H PRN PRN PRN Reason: NAUSEA/VOMITING Last Admin: 01/16/20 06:48 Dose: 4 mg Documented by: Oxycodone HCl (Oxyir) 5 mg PO Q6H PRN PRN PRN Reason: Pain Score 6-10/10 Last Admin: 01/16/20 03:24 Dose: 5 mg Documented by: Sodium Chloride () 10 - 40 ml IV UD PRN PRN Reason: SALINE FLUSH Last Admin: 01/16/20 06:48 Dose: 10 ml Documented by: STROKE Vital Signs/Narrative: Vital Signs Temp Pulse Resp BP Pulse Ox 01/16/20 08:00 99.9 F H 75 21 H 115/49 L 98 01/16/20 07:10 80 01/16/20 07:00 98.9 F 92 24 H 130/61 H 98 01/16/20 06:00 91 16 165/76 H 97 01/16/20 05:00 100.2 F H 88 16 175/74 H 97 Medical Necessity - Tobacco Use Smoking Status: Former smoker Tobacco Use: Non-smoker Assessment/Plan All Active Problems Severe sepsis (Acute) Cellulitis of right leg without foot (Acute) Acute delirium (Acute) Cellulitis (Acute) Encephalopathy acute (Resolved) Pneumonia (Resolved) Severe sepsis with acute organ dysfunction (Resolved) 1. Severe sepsis secondary to right lower leg cellulitis/acute metabolic encephalopathy versus possible toxic encephalopathy -We will transition him to Ancef as his cellulitis appears more strep than anything else -Continue with IV fluids and hold off on opiates while here -Also possibility of alcohol withdrawal, will monitor -Lactate has improved, leukocytosis slightly worsened -Currently afebrile no longer tachycardic 2. Chronic pain from degenerative disc disease -Had surgery in [facility] recently and may take an extra morphine explain partly his confusion but she with his renal disease -Old off on all narcotics as able 3. DM 2/CKD 3 -Continue with sliding scale insulin and mealtime insulin -We will monitor blood sugar levels and make adjustments as necessary -Kidney function is at baseline 4. HTN -Blood pressures are stable -Continue with Imdur DVT: Lovenox Inpatient E&M: 82296 Subs Hosp L2
--- NOTE | 2020-01-16 09:08 | CASEMGMT ---
Social Work Note Per fabrication specialist questions, pt was confused initially and unable to answer questions regarding advanced directives. 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 Nga Bryant ICU RN, BUSINESS REPRESENTATIVE
[2020-01-16 10:15] LABS: Pathologist Review Reviewed
[2020-01-16 10:16] LABS: Pathologist Review Reviewed
[2020-01-16] MEDS: Isosorbide Mononitrate 30 MG Tablet PO (10:20)
--- NOTE | 2020-01-16 10:28 | CASEMGMT ---
Social Work Note Pt will likely be moving out of ICU today and to PCU. SW met with pt to discuss discharge plans. SW introduced self and role at [facility]. Pt is alert and orientated x3, SW did have to repeat some questions though to pt. Living arrangements: Pt states that he lives alone in a mobile home with three steps to enter. Handrails for steps. PCP: Dr. Aviles Pharmacy: [facility] [place] DME: [facility]. Pt is currently on oxygen in ICU ALDs: Pt states independent with ALDs, states he still drives. LW/HCPOA: Per previous notes, pt has HCPOA/LW and pt's son Sarah is HCPOA. MH: Pt denied any history of MH. Per Courtney, ED SW notes, pt and Sarah denied any history of MH last night in the ED as well. Substance Abuse: Pt denied any history of substance abuse. 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 SON STATES PATIENT HAS NOT CONSUMED ALCOHOL IN A WHILE SINCE HE IS ON PAIN MEDICATIONS. SON BELIEVES PATIENT IS MISUSING PAIN MEDICATIONS AND HAS A HISTORY OF OVER-MEDICATING. SNF: Pt states he has been to [facility] before. Per H+P, pt was discharged from SNF about three weeks ago after having back surgery at [place]. HHC: Pt denied any HHC previously Pt states that he wishes to discharge home at this time. SW informed pt that PT/OT have been ordered for pt and they will see pt while at [facility] and make recommendations. Pt states that if SNF is recommended he would prefer to return to [facility]. Plan: Home with HHC vs SNF. Pt wishes to discharge home at this time. PT/OT will work with pt and make recommendations. ULISES DIETRICH and SW to continue to follow. Nga Bryant SENIOR IT SPECIALIST, LOCKER ATTENDANT
[2020-01-16 11:36] LABS: Bedside Glucose 95 mg/dL (70-110)
--- NOTE | 2020-01-16 13:01 | CASEMGMT ---
Addendum entered by Nga Bryant 01/16/20 16:11: BARTOLOME completed convalescent 7000 in [facility]. Addendum entered by Nga Bryant 01/16/20 13:48: SW received message from Urszula at [facility] stating they are able to accept pt, SW forwarded message to Dilcia U BARTOLOME. SW discussed case with Salbador Anderson, APS report is justified. BARTOLOME placed a call to Whitney at [facility] and provided APS referral. Original Note: Social Work Note SW reviewed PT/OT. Pt was min assist of 1 and only walked two feet and was painful. Pt will likely need SNF at discharge and per previous conversations with pt, if SNF was needed he would be agreeable to [facility] [place]. BARTOLOME placed a call to Urszula at [facility] and discussed referral. Urszula states pt has been home for less than a month from SNF and will be able to return when medically ready, pt will not need another three midnight stay under Medicare to return to SNF. Urszula states to fax referral to [phone]. Urszula states they should be able to accept pt back as pt's DIL works at SNF. BARTOLOME faxed referral and wrote on fax coversheet to call Dilcia MANCUSO on PCU as pt has now moved to PCU. BARTOLOME updated [facility] BARTOLOME regarding referral. BARTOLOME placed a call to Salbador Anderson and left message asking to discuss pt to determine if APS referral will need to be made. Per reports, there was concerns with pt's house being a mess, pt not taking care of self and pt's misusing medication. BARTOLOME waiting for call back. Plan: Likely SNF - [facility] [place] pending acceptance Nga Bryant GLOVE SEWER, HAND SPRAYER
[2020-01-16] MEDS: Cefazolin 2 GM in 0.9% Normal Saline 100 ML IV ×2 (14:12→22:15)
--- NOTE | 2020-01-16 16:23 | CASEMGMT ---
Social Work SW met with pt and informed pt that [facility] can accept. Pt stating that he would like to see what his son thinks. With pt permission phone call to pt son. Grandson answers phone and states son is not available and does not now when he will be home or a cell number that son can be reached at. Grandson unable to take a message. Son will need to be notified prior to pt discharge to Nursing Facility. [place] is able to accept pt over the weekend is pt is medically ready. SHANEKA Florian
[2020-01-16 17:05] LABS: Bedside Glucose 151 mg/dL (70-110)
[2020-01-16 22:31] LABS: Bedside Glucose 120 mg/dL (70-110)
--- NOTE | 2020-01-16 23:40 | EKG12_ITS ---
Test Reason : POSS A-FIB Blood Pressure : / mmHG Vent. Rate : 135 BPM Atrial Rate : 150 BPM P-R Int : 000 ms QRS Dur : 068 ms QT Int : 274 ms P-R-T Axes : 000 -65 061 degrees QTc Int : 411 ms Atrial fibrillation Left axis deviation Nonspecific ST abnormality Abnormal ECG When compared with ECG of 15-JAN-2020 15:03, MANUAL COMPARISON REQUIRED, DATA IS UNCONFIRMED Confirmed by SPARKLE CLEVELAND, ELIZ ([id number]), editor farm journal BRAXTON COLLIER ([id number]) on 01/20/2020 2:41:08 PM Referred By: DR SPARKS Confirmed By:ELIZ VILLAGRAN MD
[2020-01-17] VITALS (42 sets, daily range): BP systolic 89–140; BP diastolic 41–98; PULSE 80–132; RESP 11–26; TEMP 36.9–38.3; O2SAT 90–100
--- NOTE | 2020-01-17 00:24 | PCM.PN.BLA ---
Progress Note Patient with a history of paroxysmal A. fib. Nurse reported that patient had irregular rhythm and tachycardia on monitor. EKG driven by nurse protocol showed patient in A. fib with RVR with ventricular rate of 135. Will give Cardizem 10 mg IV bolus. Lovenox 1 mg/kg every 12 hours ordered. STROKE Vital Signs/Narrative: Vital Signs Temp Pulse Resp BP Pulse Ox 01/16/20 23:40 101.2 F H 126 H 18 121/68 H 93
[2020-01-17] MEDS: 0.9% Saline Lock 10 ML Syringe IV ×2 (00:29→21:51)
[2020-01-17] MEDS: dilTIAZem 25 MG/5 ML Vial 10 MG IV BOLUS (00:29)
--- NOTE | 2020-01-17 00:59 | PCM.PN.BLA ---
Progress Note Nurse reported patient has new chest pain and arm pain. Patient has received Cardizem bolus. Ventricular rates remain in the 140s. Will start patient on Cardizem drip. Discussed with to give patients nitroglycerin sublingual which is already on the patient's medication profile. Discussed with nurse to closely monitor blood pressure while start the patient on Cardizem drip and administering nitroglycerin. Will check cardiac enzymes. STROKE Vital Signs/Narrative: Vital Signs Temp Pulse Resp BP Pulse Ox 01/16/20 23:40 101.2 F H 126 H 18 121/68 H 93
--- NOTE | 2020-01-17 01:11 | NURSING ---
PATIENT IS DENYING CP AT THIS TIME, SO NITRO NOT GIVEN.
[2020-01-17] MEDS: oxyCODONE 5 MG Tablet PO ×3 (01:24→16:15)
[2020-01-17] MEDS: Enoxaparin 80 MG/0.8 ML Syringe SC ×2 (01:42→08:11)
--- NOTE | 2020-01-17 04:06 | PCM.PN.BLA ---
Progress Note Nurse reported patient had 4 loose stools. She reported last stool was mucousy. Patient had not received any laxative in the last 24 hours. Nurse asked whether stool for C. difficile can be ordered. Patient on antibiotics. Stool for C. difficile ordered. Also while patient is on Cardizem IV 15 mg/h ventricular rate is still more than 120. Amiodarone bolus and drip ordered. STROKE Vital Signs/Narrative: Vital Signs Temp Pulse Resp BP Pulse Ox 01/17/20 03:15 120 H 20 H 115/69 99 01/17/20 03:00 117 H 18 106/77 100 01/17/20 02:45 124 H 24 H 117/63 96 01/17/20 02:30 120 H 22 H 114/73 97 01/17/20 02:15 132 H 24 H 140/98 H 99 01/17/20 02:00 130 H 24 H 127/73 H 98 01/17/20 01:45 99.9 F H 130 H 20 H 108/70 98 01/17/20 01:40 131 H 01/17/20 01:28 132 H 131/85 H
[2020-01-17 04:22] LABS: Absolute Lymphocyte Count 1.59 X10^3/uL (0.83-4.51); Absolute Neutrophil Count 10.7 X10^3/uL (2.0-7.7); Basophil# 0.05 X10^3/uL; Basophil% 0.3 % (0-1); Eosinophil# 0.16 X10^3/uL; Eosinophils% 1.1 % (0-5); Hematocrit 30.8 % (40-54); Hemoglobin 9.2 g/dL (13.0-16.5); Lymphocyte # 1.59 X10^3/ul (4.0); Mean Corp Hgb Conc 29.9 g/dL (32-36); Mean Corpuscular Hgb 24.6 pg (27.0-32.0); Mean Corpuscular Volume 82.4 fL (80-94); Mean Platelet Vol. 8.9 fl (6.2-12.0); Monocyte# 1.84 X10^3/uL; Monocyte% 12.7 % (0-10); NRBC Flagged by Analyzer 0 % (0-5); Neutrophil # 10.71 X10^3/uL (2.7-7.7); Neutrophil % 73.7 % (47-70); POSITIVE DIFFERENTIAL YES; Platelet Count 260 K/mm3 (150-450); RBC Distribution Width CV 15.2 % (11.6-14.6); RBC Distribution Width SD 45.9 fl (35.1-43.9); Red Blood Count 3.74 M/mm3 (4.6-6.2); White Blood Count 14.5 K/mm3 (4.4-11.0)
[2020-01-17] MEDS: Amiodarone 360 MG in Dextrose 5% Viaflo Bag 192.8 ML 33.3 MG CONT INF (04:24)
[2020-01-17 05:06] LABS: Anion Gap 9 (5-15); BUN 18 mg/dL (7-18); BUN/Creat Ratio 14.1 RATIO (10-20); Calcium,Total 8.4 mg/dL (8.5-10.1); Chloride 107 mmol/L (98-107); Creatinine, Serum 1.28 mg/dL (0.70-1.30); EST Glomerular Filtration Rate 58 mL/min (>60); Est Glom Filt Rate - Afr Amer 71 mL/min (>60); Estimated Creatinine Clearance 45.69 ml/min; Glucose 126 mg/dL (74-106); Potassium 3.5 mmol/L (3.5-5.1); Sodium Level 138 mmol/L (136-145)
[2020-01-17 05:33] LABS: Differential Indicated SCAN CRITERIA MET; Platelet Estimate ADEQUATE (ADEQ)
[2020-01-17 05:34] LABS: Reactive Lymphocyte 1+
[2020-01-17] MEDS: Acetaminophen 500 MG Tablet 1000 MG PO ×3 (06:14→21:44)
[2020-01-17] MEDS: Cefazolin 2 GM in 0.9% Normal Saline 100 ML IV ×3 (06:14→21:50)
--- NOTE | 2020-01-17 07:33 | PCM.PN.INT ---
Subjective: Patient was significant difficulties overnight after being transferred out of the intensive care unit. Patient did develop A. fib with RVR requiring initiation of drips and upgrade to stepdown status. Patient states his leg feels better, but overall he feels subjectively worse compared to previous. Patient has developed diarrhea and is in C. difficile precautions pending sample General: Alert, Oriented x3, Cooperative, - - Mild distress with shifting in the bed frequently. No conversational dyspnea. HEENT: Atraumatic, PERRLA, EOMI, Normocephalic, - - No scleral icterus or injection noted Oral: Moist Mucosa, No Gingival or Mucosal Lesions/ Ulcerations Neck: Supple, No JVD, No Nodes, Trachea Midline Lungs: Clear to auscultation, Normal air movement, No rhonchi, No wheeze, No rales, - - Symmetric expansion Cardiovascular: Normal S1, Normal S2, No murmurs, Irregular Rate, No rub noted, No Gallop Abdomen: Bowel Sounds Present, Soft, Non Tender, Non-Distended Extremities: No clubbing, No cyanosis, Edema - Right lower extremity Skin: Rash Present - Slightly improved compared to previous Musculoskeletal: No Tenderness to Palpation of Joints or Extremities Lymphatic: No Cervical, Supraclavicular, or Inguinal Adenopathy Neurological: Cranial nerves II-XII grossly intact, Neuro grossly intact, Motor Exam 5/5 strength throughout Psych/Mental Status: Anxious, Restless Vital Signs Temp Pulse Resp BP Pulse Ox 38.3 C H 105 H 18 118/60 98 01/17/20 03:30 01/17/20 07:22 01/17/20 07:22 01/17/20 07:22 01/17/20 07:22 Oxygen Flow Rate (L/min) 2 Oxygen Delivery Method Nasal Cannula Weight: 78.7 kg Body Mass Index (BMI) 28.1 Finger Stick Blood Glucose 131 Intake and Output for Last 24 Hours 01/15/20 01/16/20 01/17/20 23:59 23:59 23:59 Intake Total 1100 / 1100 3503.75 / 3503.75 534.17 / 534.17 Output Total 1125 / 1125 344 / 344 Balance 1100 / 800 2378.75 / 2378.75 190.17 / 190.17 Labs (Last 48 Hours) 01/15/20 01/15/20 01/15/20 14:50 14:50 14:51 WBC RBC Hgb Hct MCV MCH MCHC RDW Std Deviation RDW Coeff of Maria Luisa Plt Count MPV Immature Gran % (Auto) Neut % (Auto) Lymph % (Auto) Mclennan % (Auto) Eos % (Auto) Baso % (Auto) Absolute Neuts (auto) Absolute Lymphs (auto) Nucleated RBC % Differential Comment Diff Path Review Reactive Lymphocytes Platelet Estimate PT 18.4 H INR 1.5 Sodium Potassium Chloride Carbon Dioxide Anion Gap BUN Creatinine Estim Creat Clear Calc Est GFR (MDRD) Af Amer Est GFR (MDRD) Non-Af BUN/Creatinine Ratio Glucose Lactic Acid Calcium Total Bilirubin AST ALT Alkaline Phosphatase Troponin I B-Natriuretic Peptide Total Protein Albumin Globulin Albumin/Globulin Ratio Lipase Urine Color Yellow Urine Clarity Clear Urine pH 6.0 Ur Specific [place] 1.010 Urine Protein Negative Urine Glucose (UA) 50 H Urine Ketones Negative Urine Occult Blood Negative Urine Nitrite Negative Urine Bilirubin Negative Urine Urobilinogen Normal Ur Leukocyte Esterase Negative Urine RBC 0 SEEN Urine WBC 0 SEEN Ur Squamous Epith Cells 0 SEEN Urine Bacteria 0 SEEN Urine Mucus 0 SEEN Urine Opiates Screen POSITIVE H Urine Methadone Screen NEGATIVE Ur Barbiturates Screen NEGATIVE Ur Phencyclidine Scrn NEGATIVE Ur Amphetamines Screen NEGATIVE U Methamphetamin-MDMA NEGATIVE U Benzodiazepines Scrn NEGATIVE Urine Cocaine Screen NEGATIVE U Cannabinoids Screen NEGATIVE Ur Drug Screen Comment Ethyl Alcohol POC Glucose 01/15/20 01/15/20 01/15/20 14:51 14:55 14:55 WBC 18.9 H RBC 4.07 L Hgb 10.1 L Hct 33.0 L MCV 81.1 MCH 24.8 L MCHC 30.6 L RDW Std Deviation 44.5 H RDW Coeff of Maria Luisa 15.2 H Plt Count 289 MPV 8.7 Immature Gran % (Auto) 1.300 H Neut % (Auto) 80.7 H Lymph % (Auto) 7.1 L Mclennan % (Auto) 10.4 H Eos % (Auto) 0.2 Baso % (Auto) 0.3 Absolute Neuts (auto) 15.3 H Absolute Lymphs (auto) 1.35 Nucleated RBC % 0 Differential Comment SCANNED Diff Path Review Reviewed Reactive Lymphocytes Platelet Estimate PT INR Sodium 138 Potassium 4.2 Chloride 102 Carbon Dioxide 26.0 Anion Gap 10 BUN 33 H Creatinine 1.70 H Estim Creat Clear Calc 34.40 Est GFR (MDRD) Af Amer 51 L Est GFR (MDRD) Non-Af 42 L BUN/Creatinine Ratio 19.4 Glucose 262 H Lactic Acid Calcium 8.9 Total Bilirubin 0.50 AST 13 L ALT 17 Alkaline Phosphatase 49 Troponin I < 0.015 B-Natriuretic Peptide Total Protein 7.6 Albumin 3.8 Globulin 3.8 Albumin/Globulin Ratio 1.0 Lipase 444 H Urine Color Urine Clarity Urine pH Ur Specific [place] Urine Protein Urine Glucose (UA) Urine Ketones Urine Occult Blood Urine Nitrite Urine Bilirubin Urine Urobilinogen Ur Leukocyte Esterase Urine RBC Urine WBC Ur Squamous Epith Cells Urine Bacteria Urine Mucus Urine Opiates Screen Urine Methadone Screen Ur Barbiturates Screen Ur Phencyclidine Scrn Ur Amphetamines Screen U Methamphetamin-MDMA U Benzodiazepines Scrn Urine Cocaine Screen U Cannabinoids Screen Ur Drug Screen Comment Ethyl Alcohol 9.0 POC Glucose 01/15/20 01/15/20 01/15/20 14:55 15:15 19:55 WBC RBC Hgb Hct MCV MCH MCHC RDW Std Deviation RDW Coeff of Maria Luisa Plt Count MPV Immature Gran % (Auto) Neut % (Auto) Lymph % (Auto) Mclennan % (Auto) Eos % (Auto) Baso % (Auto) Absolute Neuts (auto) Absolute Lymphs (auto) Nucleated RBC % Differential Comment Diff Path Review Reactive Lymphocytes Platelet Estimate PT INR Sodium Potassium Chloride Carbon Dioxide Anion Gap BUN Creatinine Estim Creat Clear Calc Est GFR (MDRD) Af Amer Est GFR (MDRD) Non-Af BUN/Creatinine Ratio Glucose Lactic Acid 3.0 H* 2.1 H* Calcium Total Bilirubin AST ALT Alkaline Phosphatase Troponin I B-Natriuretic Peptide 114.3 H Total Protein Albumin Globulin Albumin/Globulin Ratio Lipase Urine Color Urine Clarity Urine pH Ur Specific [place] Urine Protein Urine Glucose (UA) Urine Ketones Urine Occult Blood Urine Nitrite Urine Bilirubin Urine Urobilinogen Ur Leukocyte Esterase Urine RBC Urine WBC Ur Squamous Epith Cells Urine Bacteria Urine Mucus Urine Opiates Screen Urine Methadone Screen Ur Barbiturates Screen Ur Phencyclidine Scrn Ur Amphetamines Screen U Methamphetamin-MDMA U Benzodiazepines Scrn Urine Cocaine Screen U Cannabinoids Screen Ur Drug Screen Comment Ethyl Alcohol POC Glucose 01/15/20 01/16/20 01/16/20 22:12 03:04 04:05 WBC 19.1 H RBC 3.98 L Hgb 9.9 L Hct 31.9 L MCV 80.2 MCH 24.9 L MCHC 31.0 L RDW Std Deviation 45.0 H RDW Coeff of Maria Luisa 15.4 H Plt Count 273 MPV 9.1 Immature Gran % (Auto) 0.900 Neut % (Auto) 71.1 H Lymph % (Auto) 13.7 L Mclennan % (Auto) 13.5 H Eos % (Auto) 0.4 Baso % (Auto) 0.4 Absolute Neuts (auto) 13.6 H Absolute Lymphs (auto) 2.61 Nucleated RBC % 0 Differential Comment Diff Path Review Reviewed Reactive Lymphocytes RARE Platelet Estimate ADEQUATE PT INR Sodium Potassium Chloride Carbon Dioxide Anion Gap BUN Creatinine Estim Creat Clear Calc Est GFR (MDRD) Af Amer Est GFR (MDRD) Non-Af BUN/Creatinine Ratio Glucose Lactic Acid Calcium Total Bilirubin AST ALT Alkaline Phosphatase Troponin I B-Natriuretic Peptide Total Protein Albumin Globulin Albumin/Globulin Ratio Lipase Urine Color Urine Clarity Urine pH Ur Specific [place] Urine Protein Urine Glucose (UA) Urine Ketones Urine Occult Blood Urine Nitrite Urine Bilirubin Urine Urobilinogen Ur Leukocyte Esterase Urine RBC Urine WBC Ur Squamous Epith Cells Urine Bacteria Urine Mucus Urine Opiates Screen Urine Methadone Screen Ur Barbiturates Screen Ur Phencyclidine Scrn Ur Amphetamines Screen U Methamphetamin-MDMA U Benzodiazepines Scrn Urine Cocaine Screen U Cannabinoids Screen Ur Drug Screen Comment Ethyl Alcohol POC Glucose 163 H 138 H 01/16/20 01/16/20 01/16/20 04:05 08:02 11:28 WBC RBC Hgb Hct MCV MCH MCHC RDW Std Deviation RDW Coeff of Maria Luisa Plt Count MPV Immature Gran % (Auto) Neut % (Auto) Lymph % (Auto) Mclennan % (Auto) Eos % (Auto) Baso % (Auto) Absolute Neuts (auto) Absolute Lymphs (auto) Nucleated RBC % Differential Comment Diff Path Review Reactive Lymphocytes Platelet Estimate PT INR Sodium 138 Potassium 3.7 Chloride 102 Carbon Dioxide 27.0 Anion Gap 9 BUN 26 H Creatinine 1.47 H Estim Creat Clear Calc 39.78 Est GFR (MDRD) Af Amer 60 Est GFR (MDRD) Non-Af 50 L BUN/Creatinine Ratio 17.7 Glucose 162 H Lactic Acid Calcium 8.6 Total Bilirubin 0.80 AST 19 ALT 16 Alkaline Phosphatase 47 Troponin I B-Natriuretic Peptide Total Protein 6.9 Albumin 3.3 Globulin 3.6 Albumin/Globulin Ratio 0.9 Lipase Urine Color Urine Clarity Urine pH Ur Specific [place] Urine Protein Urine Glucose (UA) Urine Ketones Urine Occult Blood Urine Nitrite Urine Bilirubin Urine Urobilinogen Ur Leukocyte Esterase Urine RBC Urine WBC Ur Squamous Epith Cells Urine Bacteria Urine Mucus Urine Opiates Screen Urine Methadone Screen Ur Barbiturates Screen Ur Phencyclidine Scrn Ur Amphetamines Screen U Methamphetamin-MDMA U Benzodiazepines Scrn Urine Cocaine Screen U Cannabinoids Screen Ur Drug Screen Comment Ethyl Alcohol POC Glucose 170 H 95 01/16/20 01/16/20 01/17/20 16:56 22:17 01:28 WBC RBC Hgb Hct MCV MCH MCHC RDW Std Deviation RDW Coeff of Maria Luisa Plt Count MPV Immature Gran % (Auto) Neut % (Auto) Lymph % (Auto) Mclennan % (Auto) Eos % (Auto) Baso % (Auto) Absolute Neuts (auto) Absolute Lymphs (auto) Nucleated RBC % Differential Comment Diff Path Review Reactive Lymphocytes Platelet Estimate PT INR Sodium Potassium Chloride Carbon Dioxide Anion Gap BUN Creatinine Estim Creat Clear Calc Est GFR (MDRD) Af Amer Est GFR (MDRD) Non-Af BUN/Creatinine Ratio Glucose Lactic Acid Calcium Total Bilirubin AST ALT Alkaline Phosphatase Troponin I 0.033 B-Natriuretic Peptide Total Protein Albumin Globulin Albumin/Globulin Ratio Lipase Urine Color Urine Clarity Urine pH Ur Specific [place] Urine Protein Urine Glucose (UA) Urine Ketones Urine Occult Blood Urine Nitrite Urine Bilirubin Urine Urobilinogen Ur Leukocyte Esterase Urine RBC Urine WBC Ur Squamous Epith Cells Urine Bacteria Urine Mucus Urine Opiates Screen Urine Methadone Screen Ur Barbiturates Screen Ur Phencyclidine Scrn Ur Amphetamines Screen U Methamphetamin-MDMA U Benzodiazepines Scrn Urine Cocaine Screen U Cannabinoids Screen Ur Drug Screen Comment Ethyl Alcohol POC Glucose 151 H 120 H 01/17/20 01/17/20 01/17/20 04:03 04:03 04:03 WBC 14.5 H RBC 3.74 L Hgb 9.2 L Hct 30.8 L MCV 82.4 MCH 24.6 L MCHC 29.9 L RDW Std Deviation 45.9 H RDW Coeff of Maria Luisa 15.2 H Plt Count 260 MPV 8.9 Immature Gran % (Auto) 1.200 H Neut % (Auto) 73.7 H Lymph % (Auto) 11.0 L Mclennan % (Auto) 12.7 H Eos % (Auto) 1.1 Baso % (Auto) 0.3 Absolute Neuts (auto) 10.7 H Absolute Lymphs (auto) 1.59 Nucleated RBC % 0 Differential Comment Diff Path Review May foll Reactive Lymphocytes 1+ Platelet Estimate ADEQUATE PT INR Sodium 138 Potassium 3.5 Chloride 107 Carbon Dioxide 22.0 Anion Gap 9 BUN 18 Creatinine 1.28 Estim Creat Clear Calc 45.69 Est GFR (MDRD) Af Amer 71 Est GFR (MDRD) Non-Af 58 L BUN/Creatinine Ratio 14.1 Glucose 126 H Lactic Acid Calcium 8.4 L Total Bilirubin AST ALT Alkaline Phosphatase Troponin I 0.085 H B-Natriuretic Peptide Total Protein Albumin Globulin Albumin/Globulin Ratio Lipase Urine Color Urine Clarity Urine pH Ur Specific [place] Urine Protein Urine Glucose (UA) Urine Ketones Urine Occult Blood Urine Nitrite Urine Bilirubin Urine Urobilinogen Ur Leukocyte Esterase Urine RBC Urine WBC Ur Squamous Epith Cells Urine Bacteria Urine Mucus Urine Opiates Screen Urine Methadone Screen Ur Barbiturates Screen Ur Phencyclidine Scrn Ur Amphetamines Screen U Methamphetamin-MDMA U Benzodiazepines Scrn Urine Cocaine Screen U Cannabinoids Screen Ur Drug Screen Comment Ethyl Alcohol POC Glucose Medical Necessity - Tobacco Use Smoking Status: Former smoker Tobacco Use: Non-smoker Assessment/Plan All Active Problems Severe sepsis (Acute) Cellulitis of right leg without foot (Acute) Acute delirium (Acute) Cellulitis (Acute) Encephalopathy acute (Resolved) Pneumonia (Resolved) Severe sepsis with acute organ dysfunction (Resolved) RECOMMENDATIONS: 1. Continue Ancef 2. Zofran as needed for nausea 3. Await results of C. difficile 4. Cardizem drip and amiodarone per hospitalist/cardiology 5. Monitor for withdrawal symptoms 6. Follow blood sugars closely 7. Continue PT/OT IMPRESSIONS: 1. Severe sepsis secondary to right lower leg cellulitis Patient does have significant erythema and redness to the touch of the right lower extremity. Access point appears to be in the mid sanchez area. This area will be demarcated. Patient has responded well to Ancef as the rash appears to be improving. Blood pressures have been adequate. Patient is having some diarrhea, but this may be secondary to antibiotics, but ruling out C. difficile is appropriate. Would not start on p.o. vancomycin until testing is available. 2. Acute toxic/metabolic encephalopathy Slightly improved. Unclear etiology. May be secondary to sepsis. Patient does have opiates secondary to chronic pain syndrome also. Patient's respiratory status appears to be appropriate at this time. Patient does appear to have some mild pancreatitis. Recommend delirium protocol. We will also have to watch for withdrawal symptoms from both opiates and alcohol. Unclear if patient's diarrhea could be secondary to withdrawal symptoms. 3. Chronic pain syndrome/type 2 diabetes mellitus/CKD stage III/advanced age/poor historian Complicates care, management, recovery and prognosis. We will have to watch blood sugars closely given acute illness. Renal function appears to be at its baseline at this time. Blood pressure is slightly elevated and is likely okay to continue baseline antihypertensive medications from my perspective. 4. New onset A. fib with RVR Clinical suspicion for onset secondary to problem #1. Patient has responded to therapy, but is still in A. fib. Rate is controlled at this time. We will continue to monitor. Inpatient E&M: [id number] [facility] L3
[2020-01-17] MEDS: Isosorbide Mononitrate 30 MG Tablet PO (08:10)
[2020-01-17 08:30] LABS: Bedside Glucose 164 mg/dL (70-110)
[2020-01-17] MEDS: dilTIAZem CD 120 MG Capsule PO ×2 (11:31→21:45)
[2020-01-17] MEDS: Insulin Lispro 100 UNIT/ML INSULN.PEN SC ×3 (11:33→21:48)
--- NOTE | 2020-01-17 11:43 | CM.ED ---
SOCIAL WORK CALL TO PATIENT'S SON, YOSSI ([phone]). CONFIRMED DISCHARGE PLAN IS FOR [facility]. GREEN SHEET ON CHART. Jessika BETTS MSW, [employer].
[2020-01-17 12:00] LABS: Bedside Glucose 195 mg/dL (70-110)
--- NOTE | 2020-01-17 12:11 | PN_ITS ---
<Tho Salcedo - Last Filed: 01/17/20 12:11> Patient Problems: Active and Suspected Problems Severe sepsis (Acute) Cellulitis of right leg without foot (Acute) Acute delirium (Acute) Cellulitis (Acute) Reason for Visit: RLE cellulitis Subjective: mentation improved. no cp or palp. rate improved. reports prior hx afib. ongoing significant RLE pain. no subjective fever/chills. did have objective fever 1140 last night 101.2. ongoing diffuse cramping abd pain, worse in the LLQ. 4 episodes diarrhea last night. ongoing chronic back pain. Vitals/I&O's: Vital Signs Temp Pulse Resp BP Pulse Ox 98.5 F 92 25 H 95/51 L 91 01/17/20 08:00 01/17/20 09:30 01/17/20 09:30 01/17/20 09:30 01/17/20 09:30 Oxygen Flow Rate (L/min) 2 Oxygen Delivery Method Room Air Weight: 173 lb 8.061 oz Body Mass Index (BMI) 28.1 Finger Stick Blood Glucose 131 Intake and Output for Last 24 Hours 01/15/20 01/16/20 01/17/20 23:59 23:59 23:59 Intake Total 1100 / 1100 3503.75 / 3503.75 783.43 / 783.43 Output Total 1125 / 1125 344 / 344 Balance 1100 / 800 2378.75 / 2378.75 439.43 / 439.43 General: Alert, Oriented x3, Cooperative HEENT: Atraumatic, PERRLA, EOMI, Normocephalic Neck: Supple, No JVD, Negative Carotid Bruits Lungs: Clear to auscultation, Normal air movement Cardiovascular: Regular rate, No murmurs, Irregular Rate, Murmur - 3/6 systolic murmur heard across chest. Abdomen: Bowel Sounds Present, Soft, Tender - diffuse Extremities: No edema, Capillary Refill Less than 3 Seconds Skin: - - RLE erythema, warmth, tenderness to light palp Musculoskeletal: No Tenderness to Palpation of Joints or Extremities Neurological: Cranial nerves II-XII grossly intact Psych/Mental Status: Normal Affect, Appropriate, Alert and oriented to time, place, person, mood and affect Laboratory Results 01/16/20 16:56: POC Glucose 151 H 01/16/20 22:17: POC Glucose 120 H 01/17/20 01:28: Troponin I 0.033 01/17/20 04:03: WBC 14.5 H, RBC 3.74 L, Hgb 9.2 L, Hct 30.8 L, MCV 82.4, MCH 24.6 L, MCHC 29.9 L, RDW Std Deviation 45.9 H, RDW Coeff of Maria Luisa 15.2 H, Plt Count 260, MPV 8.9, Immature Gran % (Auto) 1.200 H, Neut % (Auto) 73.7 H, Lymph % (Auto) 11.0 L, [place] % (Auto) 12.7 H, Eos % (Auto) 1.1, Baso % (Auto) 0.3, Absolute Neuts (auto) 10.7 H, Absolute Lymphs (auto) 1.59, Nucleated RBC % 0, Diff Path Review February, Reactive Lymphocytes 1+, Platelet Estimate ADEQUATE 01/17/20 04:03: Sodium 138, Potassium 3.5, Chloride 107, Carbon Dioxide 22.0, Anion Gap 9, BUN 18, Creatinine 1.28, Estim Creat Clear Calc 45.69, Est GFR (MDRD) Af Amer 71, Est GFR (MDRD) Non-Af 58 L, BUN/Creatinine Ratio 14.1, Glucose 126 H, Calcium 8.4 L 01/17/20 04:03: Troponin I 0.085 H 01/17/20 07:33: Troponin I 0.489 H 01/17/20 08:09: POC Glucose 164 H 01/17/20 11:30: POC Glucose 195 H Current Medications Acetaminophen (Tylenol) 1,000 mg PO TID [facility] Last Admin: 01/17/20 06:14 Dose: 1,000 mg Documented by: Apixaban (Eliquis) 5 mg PO BID [facility] Dextrose (D50w Syringe) 0 gm IV X1 PRN; Protocol PRN Reason: Hypoglycemia Diltiazem HCl (Cardizem Cd) 120 mg PO Q12 [facility] Last Admin: 01/17/20 11:31 Dose: 120 mg Documented by: Glucagon () 1 mg IM .X1 PRN PRN Reason: Hypoglycemia Cefazolin Sodium 2 gm/ Sodium (Chloride) 110 mls @ 150 mls/hr IV Q8 [facility] Last Infusion: 01/17/20 06:50 Dose: Infused Documented by: Sodium Chloride () 250 mls @ 15 mls/hr IV .[id number] PRN PRN Reason: Saline Flush Last Admin: 01/17/20 06:57 Dose: 15 mls/hr Documented by: Insulin Human Lispro (Humalog Kwikpen (Bkc)) 34 unit SC TIDCM [facility] Last Admin: 01/17/20 11:34 Dose: Not Given Documented by: Insulin Human Lispro (Humalog Kwikpen (Bkc)) 0 unit SC ACHS [facility]; Protocol Last Admin: 01/17/20 11:33 Dose: 1 u Documented by: Isosorbide Mononitrate (Imdur) 30 mg PO DAILY [facility] Last Admin: 01/17/20 08:10 Dose: 30 mg Documented by: Nitroglycerin (Nitrostat) 0.4 mg SUBLINGUAL Q5M PRN PRN Reason: CARDIAC/CHEST PAIN Ondansetron HCl (Zofran) 4 mg IV Q6H PRN PRN PRN Reason: NAUSEA/VOMITING Last Admin: 01/16/20 06:48 Dose: 4 mg Documented by: Oxycodone HCl (Oxyir) 5 mg PO Q6H PRN PRN PRN Reason: Pain Score 6-10/10 Last Admin: 01/17/20 08:11 Dose: 5 mg Documented by: Sodium Chloride () 10 - 40 ml IV UD PRN PRN Reason: SALINE FLUSH Last Admin: 01/17/20 00:29 Dose: 10 ml Documented by: STROKE Vital Signs/Narrative: Vital Signs Pulse Resp BP Pulse Ox 01/17/20 09:30 92 25 H 95/51 L 91 01/17/20 09:15 97 20 H 89/53 L 97 01/17/20 09:14 95 16 98/49 L 97 01/17/20 09:04 98 11 L 96/48 L 97 Medical Necessity - Tobacco Use Smoking Status: Former smoker Tobacco Use: Non-smoker Assessment/Plan All Active Problems Severe sepsis (Acute) Cellulitis of right leg without foot (Acute) Acute delirium (Acute) Cellulitis (Acute) Encephalopathy acute (Resolved) Pneumonia (Resolved) Severe sepsis with acute organ dysfunction (Resolved) 1. Severe sepsis 2/2 cellulitis RLE - ongoing fever, increased WBC. Continue cefazolin. increased abd pain and diarrhea - check stool for Cdiff. blood cultures pending. 2. pAfib RVR - likely 2/2 sepsis. rate improved, still in afib. lovenox to eliquis. stop drip, start po cardizem. consider beta homero. check mag/tsh 3. Elevated troponin - consider echo. last 05.05.2018. EKG in am. statin allergic. start 81 mg asa. 4. Acute toxic vs metabolic encephalopathy - sepsis vs home morphine. improved. 5. Chronic pain due to DDD, recent surgery [facility]. Possibly took extra morphine doses at home. Prior visit with concern for drug seeking behavior. 6. DMt2 - SSI, continue TID insulin. 7. CKDIII - stable DVT ppx: lovenox DC planning: lives alone, ptot evals. This patient was seen by Tho Salcedo PA-C under the supervision of Dr. Macdonald <Gary Macdonald - Last Filed: 01/17/20 14:17> Vitals/I&O's: Vital Signs Temp Pulse Resp BP Pulse Ox 98.5 F 92 25 H 95/51 L 91 01/17/20 08:00 01/17/20 09:30 01/17/20 09:30 01/17/20 09:30 01/17/20 09:30 Oxygen Flow Rate (L/min) 2 Oxygen Delivery Method Room Air Weight: 173 lb 8.061 oz Body Mass Index (BMI) 28.1 Finger Stick Blood Glucose 131 Intake and Output for Last 24 Hours 01/15/20 01/16/20 01/17/20 23:59 23:59 23:59 Intake Total 1100 / 1100 3503.75 / 3503.75 783.43 / 783.43 Output Total 1125 / 1125 344 / 344 Balance 1100 / 800 2378.75 / 2378.75 439.43 / 439.43 Laboratory Results 01/16/20 16:56: POC Glucose 151 H 01/16/20 22:17: POC Glucose 120 H 01/17/20 01:28: Troponin I 0.033 01/17/20 04:03: WBC 14.5 H, RBC 3.74 L, Hgb 9.2 L, Hct 30.8 L, MCV 82.4, MCH 24.6 L, MCHC 29.9 L, RDW Std Deviation 45.9 H, RDW Coeff of Maria [place]isa 15.2 H, Plt Count 260, MPV 8.9, Immature Gran % (Auto) 1.200 H, Neut % (Auto) 73.7 H, Lymph % (Auto) 11.0 L, [place] % (Auto) 12.7 H, Eos % (Auto) 1.1, Baso % (Auto) 0.3, Absolute Neuts (auto) 10.7 H, Absolute Lymphs (auto) 1.59, Nucleated RBC % 0, Diff Path Review May foll, Reactive Lymphocytes 1+, Platelet Estimate ADEQUATE 01/17/20 04:03: Sodium 138, Potassium 3.5, Chloride 107, Carbon Dioxide 22.0, Anion Gap 9, BUN 18, Creatinine 1.28, Estim Creat Clear Calc 45.69, Est GFR (MDRD) Af Amer 71, Est GFR (MDRD) Non-Af 58 L, BUN/Creatinine Ratio 14.1, Glucose 126 H, Calcium 8.4 L 01/17/20 04:03: Troponin I 0.085 H 01/17/20 04:05: Magnesium Pending, TSH Pending 01/17/20 07:33: Troponin I 0.489 H 01/17/20 08:09: POC Glucose 164 H 01/17/20 11:30: POC Glucose 195 H Current Medications Acetaminophen (Tylenol) 1,000 mg PO TID [facility] Last Admin: 01/17/20 06:14 Dose: 1,000 mg Documented by: Apixaban (Eliquis) 5 mg PO BID [facility] Aspirin (Aspirin, Baby) 81 mg PO DAILY@0800 [facility] Dextrose (D50w Syringe) 0 gm IV X1 PRN; Protocol PRN Reason: Hypoglycemia Diltiazem HCl (Cardizem Cd) 120 mg PO Q12 [facility] Last Admin: 01/17/20 11:31 Dose: 120 mg Documented by: Glucagon () 1 mg IM .X1 PRN PRN Reason: Hypoglycemia Cefazolin Sodium 2 gm/ Sodium (Chloride) 110 mls @ 150 mls/hr IV Q8 [facility] Last Infusion: 01/17/20 06:50 Dose: Infused Documented by: Sodium Chloride () 250 mls @ 15 mls/hr IV .[id number] PRN PRN Reason: Saline Flush Last Admin: 01/17/20 06:57 Dose: 15 mls/hr Documented by: Insulin Human Lispro (Humalog Kwikpen (Bkc)) 34 unit SC TIDCM [facility] Last Admin: 01/17/20 11:34 Dose: Not Given Documented by: Insulin Human Lispro (Humalog Kwikpen (Bkc)) 0 unit SC ACHS [facility]; Protocol Last Admin: 01/17/20 11:33 Dose: 1 u Documented by: Isosorbide Mononitrate (Imdur) 30 mg PO DAILY [facility] Last Admin: 01/17/20 08:10 Dose: 30 mg Documented by: Lidocaine (Lidoderm Patch) 1 patch TOPICAL DAILY [facility]; Protocol Nitroglycerin (Nitrostat) 0.4 mg SUBLINGUAL Q5M PRN PRN Reason: CARDIAC/CHEST PAIN Ondansetron HCl (Zofran) 4 mg IV Q6H PRN PRN PRN Reason: NAUSEA/VOMITING Last Admin: 01/16/20 06:48 Dose: 4 mg Documented by: Oxycodone HCl (Oxyir) 5 mg PO Q6H PRN PRN PRN Reason: Pain Score 6-10/10 Last Admin: 01/17/20 08:11 Dose: 5 mg Documented by: Sodium Chloride () 10 - 40 ml IV UD PRN PRN Reason: SALINE FLUSH Last Admin: 01/17/20 00:29 Dose: 10 ml Documented by: STROKE Vital Signs/Narrative: Vital Signs Pulse Resp BP Pulse Ox 01/17/20 09:30 92 25 H 95/51 L 91 01/17/20 09:15 97 20 H 89/53 L 97 01/17/20 09:14 95 16 98/49 L 97 01/17/20 09:04 98 11 L 96/48 L 97 Addendum: Dr. Macdonald I personally examined the patient and reviewed the chart. I agree with the above. 74-year-old male presenting with acute metabolic encephalopathy versus possible toxic encephalopathy secondary to morphine usage for his recent spinal surgery as well as severe sepsis secondary to right lower extremity cellulitis. He was transitioned to Ancef and has had a significant improvement in his white count however he is having increased diarrhea and therefore a C. difficile test has been sent and is pending. We will continue with the Ancef for now and add p.o. vancomycin if necessary. He also did go into A. fib last night and was placed on Cardizem and amiodarone, he has been transitioned to oral Cardizem and his amiodarone has been discontinued. We will continue to monitor and repeat troponins. He did have an increase in troponin to the 0.48, and this is likely demand ischemia from his tachycardia, will continue to monitor, will place him on Eliquis for his new onset A. fib, need to obtain echo on Sunday for further evaluation. Inpatient E&M: 74361 Subs Hosp L2
[2020-01-17 12:53] LABS: Magnesium 2.2 mg/dL (1.6-2.6); Thyroid Stim Hormone (TSH) 1.05 uIU/mL (0.358-3.74)
[2020-01-17] MEDS: Lidocaine 5% Patch 1 PATCH TOPICAL (13:42)
[2020-01-17 16:30] LABS: Bedside Glucose 177 mg/dL (70-110)
--- NOTE | 2020-01-17 19:20 | EKG12_ITS ---
Test Reason : NSR Blood Pressure : / mmHG Vent. Rate : 081 BPM Atrial Rate : 081 BPM P-R Int : 192 ms QRS Dur : 074 ms QT Int : 386 ms P-R-T Axes : 015 -59 034 degrees QTc Int : 448 ms Normal sinus rhythm Left axis deviation Inferior infarct , age undetermined Abnormal ECG When compared with ECG of 16-JAN-2020 23:53, MANUAL COMPARISON REQUIRED, DATA IS UNCONFIRMED Confirmed by SPARKLE CLEVELAND, ELIZ ([id number]), news assignment editor BRAXTON COLLIER ([id number]) on 01/20/2020 2:40:17 PM Referred By: DR SPARKS Confirmed By:ELIZ VILLAGRAN MD
[2020-01-17] MEDS: APIXABAN 5 MG TABLET PO (21:44)
[2020-01-17 21:46] LABS: Bedside Glucose 166 mg/dL (70-110)
[2020-01-17] MEDS: Ondansetron 4 MG/2 ML Vial IV (22:37)
[2020-01-18] VITALS (12 sets, daily range): BP systolic 105–141; BP diastolic 40–63; PULSE 74–89; RESP 18–20; TEMP 36.7–37.5; O2SAT 95–99
[2020-01-18] MEDS: oxyCODONE 5 MG Tablet PO ×4 (00:48→22:31)
[2020-01-18] MEDS: 0.9% Saline Lock 10 ML Syringe IV ×3 (00:48→22:26)
[2020-01-18] MEDS: Cefazolin 2 GM in 0.9% Normal Saline 100 ML IV ×3 (05:54→22:25)
--- NOTE | 2020-01-18 05:55 | EKG12_ITS ---
Test Reason : AM EKG Blood Pressure : / mmHG Vent. Rate : 079 BPM Atrial Rate : 079 BPM P-R Int : 194 ms QRS Dur : 088 ms QT Int : 394 ms P-R-T Axes : 026 -54 049 degrees QTc Int : 451 ms Normal sinus rhythm Left anterior fascicular block Abnormal ECG When compared with ECG of 17-JAN-2020 19:26, MANUAL COMPARISON REQUIRED, DATA IS UNCONFIRMED Confirmed by SPARKLE CLEVELAND, ELIZ ([id number]), communications editor BRAXTON COLLIER ([id number]) on 01/20/2020 2:34:12 PM Referred By: JACKIE Confirmed By:ELIZ VILLAGRAN MD
[2020-01-18] MEDS: Acetaminophen 500 MG Tablet 1000 MG PO ×3 (05:59→22:33)
[2020-01-18 06:43] LABS: Absolute Lymphocyte Count 1.25 X10^3/uL (0.83-4.51); Absolute Neutrophil Count 7.4 X10^3/uL (2.0-7.7); Basophil# 0.03 X10^3/uL; Basophil% 0.3 % (0-1); Eosinophil# 0.23 X10^3/uL; Eosinophils% 2.2 % (0-5); Hematocrit 28.4 % (40-54); Hemoglobin 8.6 g/dL (13.0-16.5); Lymphocyte # 1.25 X10^3/ul (4.0); Lymphocyte % 12.2 % (19-41); Mean Corp Hgb Conc 30.3 g/dL (32-36); Mean Corpuscular Hgb 24.8 pg (27.0-32.0); Mean Corpuscular Volume 81.8 fL (80-94); Mean Platelet Vol. 8.9 fl (6.2-12.0); Monocyte% 11.7 % (0-10); NRBC Flagged by Analyzer 0 % (0-5); Neutrophil # 7.44 X10^3/uL (2.7-7.7); Neutrophil % 72.5 % (47-70); Platelet Count 263 K/mm3 (150-450); RBC Distribution Width CV 14.8 % (11.6-14.6); RBC Distribution Width SD 44.5 fl (35.1-43.9); Red Blood Count 3.47 M/mm3 (4.6-6.2); White Blood Count 10.3 K/mm3 (4.4-11.0)
[2020-01-18 07:07] LABS: Anion Gap 7 (5-15); BUN 17 mg/dL (7-18); BUN/Creat Ratio 13.7 RATIO (10-20); Calcium,Total 8.1 mg/dL (8.5-10.1); Chloride 107 mmol/L (98-107); Creatinine, Serum 1.24 mg/dL (0.70-1.30); EST Glomerular Filtration Rate 61 mL/min (>60); Est Glom Filt Rate - Afr Amer 73 mL/min (>60); Estimated Creatinine Clearance 47.16 ml/min; Glucose 140 mg/dL (74-106); Potassium 3.6 mmol/L (3.5-5.1); Sodium Level 138 mmol/L (136-145)
--- NOTE | 2020-01-18 07:33 | PCM.PN.PUL ---
Patient Problems: Active and Suspected Problems Severe sepsis (Acute) Cellulitis of right leg without foot (Acute) Acute delirium (Acute) Cellulitis (Acute) Subjective: Patient did okay overnight. Patient continues to report right lower extremity pain, but feels this is improved. Patient has been in sinus rhythm overnight and drips have been discontinued. Patient is currently on p.o. medications. Patient was saturating well on 2 L nasal cannula, but was weaned to room air during my evaluation. Nursing was informed. - Physical Exam Vitals/I&O's: Vital Signs Temp Pulse Resp BP Pulse Ox 37.3 C 87 18 131/59 H 96 01/18/20 05:49 01/18/20 06:49 01/18/20 05:49 01/18/20 05:49 01/18/20 05:49 Oxygen Flow Rate (L/min) 2 Oxygen Delivery Method Nasal Cannula Weight: 78.5 kg Body Mass Index (BMI) 28.1 Finger Stick Blood Glucose 131 Intake and Output for Last 24 Hours 01/16/20 01/17/20 01/18/20 23:59 23:59 23:59 Intake Total 3503.75 / 3503.75 1848.93 / 2268.93 983.75 / 983.75 Output Total 1125 / 1125 344 / 444 100 / 100 Balance 2378.75 / 2378.75 1504.93 / 1824.93 883.75 / 883.75 General: Alert, Oriented x3, Cooperative - Intermittently, No apparent distress, - - No conversational dyspnea HEENT: Atraumatic, PERRLA, EOMI, Normocephalic, - - No scleral icterus or injection noted Oral: Moist Mucosa, No Gingival or Mucosal Lesions/ Ulcerations Neck: Supple, No JVD, No Nodes, Trachea Midline Lungs: No rhonchi, No wheeze, No rales, Diminished, - - Fair effort Cardiovascular: Regular rate, Regular Rhythm, Normal S1, Normal S2, Murmur - Grade 3 out of 6 systolic ejection murmur at the left lower sternal border, No rub noted, No Gallop Abdomen: Bowel Sounds Present, Soft, Non Tender, Non-Distended, Obese Extremities: No clubbing, No cyanosis, Edema Skin: - - Some improvement in area of erythema Musculoskeletal: No Tenderness to Palpation of Joints or Extremities Lymphatic: No Cervical, Supraclavicular, or Inguinal Adenopathy Neurological: Cranial nerves II-XII grossly intact, Neuro grossly intact, Motor Exam 5/5 strength throughout Psych/Mental Status: Flat Affect Microbiology Past 72 Hours 01/15/20 16:00 Blood Culture (Wb) - Right Wrist Blood Culture - Preliminary No growth in 48 hours. 01/15/20 15:15 Blood Culture (Wb) - Arm Right Blood Culture - Preliminary No growth in 48 hours. 01/17/20 10:45 Stool C. difficile DNA Amplification - Final Laboratory Results 01/17/20 04:05: Magnesium 2.2, TSH 1.05 01/17/20 07:33: Troponin I 0.489 H 01/17/20 08:09: POC Glucose 164 H 01/17/20 11:30: POC Glucose 195 H 01/17/20 16:14: POC Glucose 177 H 01/17/20 21:25: POC Glucose 166 H 01/18/20 05:53: WBC 10.3, RBC 3.47 L, Hgb 8.6 L, Hct 28.4 L, MCV 81.8, MCH 24.8 L, MCHC 30.3 L, RDW Std Deviation 44.5 H, RDW Coeff of Maria Luisa 14.8 H, Plt Count 263, MPV 8.9, Immature Gran % (Auto) 1.100 H, Neut % (Auto) 72.5 H, Lymph % (Auto) 12.2 L, [place] % (Auto) 11.7 H, Eos % (Auto) 2.2, Baso % (Auto) 0.3, Absolute Neuts (auto) 7.4, Absolute Lymphs (auto) 1.25, Nucleated RBC % 0 01/18/20 05:53: Sodium 138, Potassium 3.6, Chloride 107, Carbon Dioxide 24.0, Anion Gap 7, BUN 17, Creatinine 1.24, Estim Creat Clear Calc 47.16, Est GFR (MDRD) Af Amer 73, Est GFR (MDRD) Non-Af 61, BUN/Creatinine Ratio 13.7, Glucose 140 H, Calcium 8.1 L Current Medications Acetaminophen (Tylenol) 1,000 mg PO TID [facility] Last Admin: 01/18/20 05:59 Dose: 1,000 mg Documented by: Apixaban (Eliquis) 5 mg PO BID [facility] Last Admin: 01/17/20 21:44 Dose: 5 mg Documented by: Aspirin (Aspirin, Baby) 81 mg PO DAILY@0800 [facility] Dextrose (D50w Syringe) 0 gm IV X1 PRN; Protocol PRN Reason: Hypoglycemia Diltiazem HCl (Cardizem Cd) 120 mg PO Q12 [facility] Last Admin: 01/17/20 21:45 Dose: 120 mg Documented by: Glucagon () 1 mg IM .X1 PRN PRN Reason: Hypoglycemia Cefazolin Sodium 2 gm/ Sodium (Chloride) 110 mls @ 150 mls/hr IV Q8 [facility] Last Infusion: 01/18/20 06:38 Dose: Infused Documented by: Sodium Chloride () 250 mls @ 15 mls/hr IV .[id number] PRN PRN Reason: Saline Flush Last Infusion: 01/18/20 06:38 Dose: 15 mls/hr Documented by: Insulin Human Lispro (Humalog Kwikpen (Bkc)) 34 unit SC TIDCM [facility] Last Admin: 01/17/20 16:16 Dose: Not Given Documented by: Insulin Human Lispro (Humalog Kwikpen (Bkc)) 0 unit SC ACHS [facility]; Protocol Last Admin: 01/17/20 21:48 Dose: 1 u Documented by: Isosorbide Mononitrate (Imdur) 30 mg PO DAILY [facility] Last Admin: 01/17/20 08:10 Dose: 30 mg Documented by: Lidocaine (Lidoderm Patch) 1 patch TOPICAL DAILY [facility]; Protocol Last Admin: 01/17/20 13:42 Dose: 1 patch Documented by: Nitroglycerin (Nitrostat) 0.4 mg SUBLINGUAL Q5M PRN PRN Reason: CARDIAC/CHEST PAIN Ondansetron HCl (Zofran) 4 mg IV Q6H PRN PRN PRN Reason: NAUSEA/VOMITING Last Admin: 01/17/20 22:37 Dose: 4 mg Documented by: Oxycodone HCl (Oxyir) 5 mg PO Q6H PRN PRN PRN Reason: Pain Score 6-10/10 Last Admin: 01/18/20 07:09 Dose: 5 mg Documented by: Sodium Chloride () 10 - 40 ml IV UD PRN PRN Reason: SALINE FLUSH Last Admin: 01/18/20 05:54 Dose: 10 ml Documented by: Medical Necessity - Tobacco Use Smoking Status: Former smoker Tobacco Use: Non-smoker Assessment/Plan All Active Problems Severe sepsis (Acute) Cellulitis of right leg without foot (Acute) Acute delirium (Acute) Cellulitis (Acute) Encephalopathy acute (Resolved) Pneumonia (Resolved) Severe sepsis with acute organ dysfunction (Resolved) RECOMMENDATIONS: 1. Continue Ancef 2. Zofran as needed for nausea 3. Cardizem and amiodarone per hospitalist 4. Walking oximetry prior to discharge 5. Monitor for withdrawal symptoms 6. Follow blood sugars closely 7. Hemodynamically stable on minimal nasal cannula oxygen. Will sign off from a critical care perspective IMPRESSIONS: 1. Severe sepsis secondary to right lower leg cellulitis Patient still has significant erythema and redness to the touch of the right lower extremity. Access point appears to be in the mid sanchez area. This area will be demarcated. Patient has responded well to Ancef as the rash appears to be slowly improving. Blood pressures have been adequate. Patient is having some diarrhea, but this may be secondary to antibiotics, but C. difficile is negative. 2. Acute toxic/metabolic encephalopathy Slightly improved. Unclear etiology. May be secondary to sepsis. Patient does have opiates secondary to chronic pain syndrome also. Patient's respiratory status appears to be appropriate at this time. Patient did appear to have some mild pancreatitis on presentation. Recommend delirium protocol. 3. Chronic pain syndrome/type 2 diabetes mellitus/CKD stage III/advanced age/poor historian Complicates care, management, recovery and prognosis. We will have to watch blood sugars closely given acute illness. Renal function appears to be at its baseline at this time. Blood pressure is slightly elevated and is likely okay to continue baseline antihypertensive medications from my perspective. 4. New onset A. fib with RVR Clinical suspicion for onset secondary to problem #1. Patient is out of A. fib and rate controlled at this time. Consider outpatient cardiology Inpatient E&M: [id number] Subs Hosp L2
[2020-01-18 08:40] LABS: Bedside Glucose 149 mg/dL (70-110)
[2020-01-18] MEDS: APIXABAN 5 MG TABLET PO ×2 (09:30→22:32)
[2020-01-18] MEDS: Aspirin 81 MG TAB.CHEW PO (09:30)
[2020-01-18] MEDS: dilTIAZem CD 120 MG Capsule PO ×2 (09:30→22:32)
[2020-01-18] MEDS: Lidocaine 5% Patch 1 PATCH TOPICAL (09:31)
[2020-01-18] MEDS: Isosorbide Mononitrate 30 MG Tablet PO (09:31)
--- NOTE | 2020-01-18 10:37 | PCM.RX.CS ---
Consult Pharmacy has been consulted to manage selected antiobiotic: Vancomycin Type of Consult: New start Suspected Infection: Skin/Soft tissue Labs: Sodium 138 mmol/L (136-145) 01/18/20 05:53 Potassium 3.6 mmol/L (3.5-5.1) 01/18/20 05:53 Chloride 107 mmol/L (98-107) 01/18/20 05:53 Carbon Dioxide 24.0 mmol/L (21.0-32.0) 01/18/20 05:53 Anion Gap 7 (5-15) 01/18/20 05:53 BUN 17 mg/dL (7-18) 01/18/20 05:53 Creatinine 1.24 mg/dL (0.70-1.30) 01/18/20 05:53 Est GFR (MDRD) Af Amer 73 mL/min (>60) 01/18/20 05:53 Est GFR (MDRD) Non-Af 61 mL/min (>60) 01/18/20 05:53 BUN/Creatinine Ratio 13.7 RATIO (-20) 01/18/20 05:53 Glucose 140 mg/dL (74-106) H 01/18/20 05:53 Microbiology: Microbiology 01/15/20 16:00 Blood Culture (Wb) - Right Wrist Blood Culture - Preliminary No growth in 48 hours. 01/15/20 15:15 Blood Culture (Wb) - Arm Right Blood Culture - Preliminary No growth in 48 hours. 01/17/20 10:45 Stool C. difficile DNA Amplification - Final Weight used for dosin kg Estimated Creatinine Clearance: 47 ml/min Goal Trough: 15-20 mcg/mL Pharmacy Plan for Drug Dosinmg load, 500mg IV q12h with trough prior to 4th dose per policy. Pharmacy Service will continue to monitor and adjust dosing as required. Follow-Up Labs: Trough Vancomycin - 01/18 @ 3660
[2020-01-18] MEDS: Insulin Lispro 100 UNIT/ML INSULN.PEN SC (11:31)
[2020-01-18 11:40] LABS: Bedside Glucose 185 mg/dL (70-110)
--- NOTE | 2020-01-18 12:39 | PCM.PN.HOSP ---
<Tho Salcedo - Last Filed: 01/18/20 12:39> Patient Problems: Active and Suspected Problems Severe sepsis (Acute) Cellulitis of right leg without foot (Acute) Acute delirium (Acute) Cellulitis (Acute) Reason for Visit: RLE cellulitis Subjective: Ongoing severe RLE pain. Erythema has progressed beyond the demarcations of the initial presentation. Now a large blister with purulent fluid has formed. No fever/chills. No SOB. Abd pain has resolved and he has had no further diarrhea. Pt complains of severe arthritis related pain in BL hands, and ongoing chronic back pain. Vitals/I&O's: Vital Signs Temp Pulse Resp BP Pulse Ox 98.0 F 76 20 H 115/58 L 99 01/18/20 09:33 01/18/20 09:33 01/18/20 09:33 01/18/20 09:33 01/18/20 09:33 Oxygen Flow Rate (L/min) 2 Oxygen Delivery Method Room Air Weight: 173 lb 1.006 oz Body Mass Index (BMI) 28.1 Finger Stick Blood Glucose 131 Intake and Output for Last 24 Hours 01/16/20 01/17/20 01/18/20 23:59 23:59 23:59 Intake Total 3503.75 / 3503.75 1848.93 / 2268.93 1048.50 / 1048.50 Output Total 1125 / 1125 344 / 444 100 / 100 Balance 2378.75 / 2378.75 1504.93 / 1824.93 948.50 / 948.50 General: Alert, Oriented x3, Cooperative HEENT: Atraumatic, PERRLA, EOMI, Normocephalic Neck: Supple, No JVD, Negative Carotid Bruits Lungs: Clear to auscultation, Normal air movement Cardiovascular: Regular rate, No murmurs Abdomen: Bowel Sounds Present, Soft, Non Tender Extremities: No edema, Capillary Refill Less than 3 Seconds Skin: No rashes, No breakdown, - - erythema has expanded, pus filled blister present Musculoskeletal: No Tenderness to Palpation of Joints or Extremities Neurological: Cranial nerves II-XII grossly intact Psych/Mental Status: Normal Affect, Appropriate, Alert and oriented to time, place, person, mood and affect Microbiology Past 72 Hours 01/15/20 16:00 Blood Culture (Wb) - Right Wrist Blood Culture - Preliminary No growth in 48 hours. 01/15/20 15:15 Blood Culture (Wb) - Arm Right Blood Culture - Preliminary No growth in 48 hours. 01/17/20 10:45 Stool C. difficile DNA Amplification - Final Laboratory Results 01/17/20 04:05: Magnesium 2.2, TSH 1.05 01/17/20 16:14: POC Glucose 177 H 01/17/20 21:25: POC Glucose 166 H 01/18/20 05:53: WBC 10.3, RBC 3.47 L, Hgb 8.6 L, Hct 28.4 L, MCV 81.8, MCH 24.8 L, MCHC 30.3 L, RDW Std Deviation 44.5 H, RDW Coeff of Maria Luisa 14.8 H, Plt Count 263, MPV 8.9, Immature Gran % (Auto) 1.100 H, Neut % (Auto) 72.5 H, Lymph % (Auto) 12.2 L, Warrick % (Auto) 11.7 H, Eos % (Auto) 2.2, Baso % (Auto) 0.3, Absolute Neuts (auto) 7.4, Absolute Lymphs (auto) 1.25, Nucleated RBC % 0 01/18/20 05:53: Sodium 138, Potassium 3.6, Chloride 107, Carbon Dioxide 24.0, Anion Gap 7, BUN 17, Creatinine 1.24, Estim Creat Clear Calc 47.16, Est GFR (MDRD) Af Amer 73, Est GFR (MDRD) Non-Af 61, BUN/Creatinine Ratio 13.7, Glucose 140 H, Calcium 8.1 L 01/18/20 08:35: POC Glucose 149 H 01/18/20 11:30: POC Glucose 185 H Current Medications Acetaminophen (Tylenol) 1,000 mg PO TID [facility] Last Admin: 01/18/20 05:59 Dose: 1,000 mg Documented by: Apixaban (Eliquis) 5 mg PO BID [facility] Last Admin: 01/18/20 09:30 Dose: 5 mg Documented by: Aspirin (Aspirin, Baby) 81 mg PO DAILY@0800 [facility] Last Admin: 01/18/20 09:30 Dose: 81 mg Documented by: Dextrose (D50w Syringe) 0 gm IV X1 PRN; Protocol PRN Reason: Hypoglycemia Diltiazem HCl (Cardizem Cd) 120 mg PO Q12 [facility] Last Admin: 01/18/20 09:30 Dose: 120 mg Documented by: Glucagon () 1 mg IM .X1 PRN PRN Reason: Hypoglycemia Cefazolin Sodium 2 gm/ Sodium (Chloride) 110 mls @ 150 mls/hr IV Q8 [facility] Last Infusion: 01/18/20 06:38 Dose: Infused Documented by: Sodium Chloride () 250 mls @ 15 mls/hr IV .[id number] PRN PRN Reason: Saline Flush Last Infusion: 01/18/20 10:57 Dose: 0 mls/hr Documented by: Vancomycin IV Pharmacy to Dose (1 ea/ Sodium Chloride) 500 mls @ 250 mls/hr IV X1 PRN; Protocol PRN Reason: Rx to Dose Vancomycin HCl 2,000 mg/ (Sodium Chloride) 540 mls @ 250 mls/hr IV X1 ONE Stop: 01/18/20 13:09 Last Admin: 01/18/20 10:23 Dose: 250 mls/hr Documented by: Vancomycin HCl () 500 mg in 100 mls @ 100 mls/hr IV Q12H [facility] Insulin Human Lispro (Humalog Kwikpen (Bkc)) 34 unit SC TIDCM [facility] Last Admin: 01/18/20 11:31 Dose: Not Given Documented by: Insulin Human Lispro (Humalog Kwikpen (Bkc)) 0 unit SC ACHS [facility]; Protocol Last Admin: 01/18/20 11:31 Dose: 1 u Documented by: Isosorbide Mononitrate (Imdur) 30 mg PO DAILY [facility] Last Admin: 01/18/20 09:31 Dose: 30 mg Documented by: Lidocaine (Lidoderm Patch) 1 patch TOPICAL DAILY [facility]; Protocol Last Admin: 01/18/20 09:31 Dose: 1 patch Documented by: Nitroglycerin (Nitrostat) 0.4 mg SUBLINGUAL Q5M PRN PRN Reason: CARDIAC/CHEST PAIN Ondansetron HCl (Zofran) 4 mg IV Q6H PRN PRN PRN Reason: NAUSEA/VOMITING Last Admin: 01/17/20 22:37 Dose: 4 mg Documented by: Oxycodone HCl (Oxyir) 5 mg PO Q6H PRN PRN PRN Reason: Pain Score 6-10/10 Last Admin: 01/18/20 07:09 Dose: 5 mg Documented by: Sodium Chloride () 10 - 40 ml IV UD PRN PRN Reason: SALINE FLUSH Last Admin: 01/18/20 05:54 Dose: 10 ml Documented by: STROKE Vital Signs/Narrative: Vital Signs Temp Pulse Resp BP Pulse Ox 01/18/20 09:33 98.0 F 76 20 H 115/58 L 99 Medical Necessity - Tobacco Use Smoking Status: Former smoker Tobacco Use: Non-smoker Assessment/Plan All Active Problems Severe sepsis (Acute) Cellulitis of right leg without foot (Acute) Acute delirium (Acute) Cellulitis (Acute) Encephalopathy acute (Resolved) Pneumonia (Resolved) Severe sepsis with acute organ dysfunction (Resolved) 1. Severe sepsis 2/2 cellulitis RLE - no further fever or leukocytosis, however with the expansion of the area of cellulitis and the new bulla present that appears to have pus, will broaden abx with Vanco added today. Nasal mrsa screen. If blister opens, will cx, however I would prefer to leave it closed at this time to prevent a major opening to further infection. Blood cultures negative. 2. pAfib RVR - likely 2/2 sepsis. controlled on cardizem, continue eliquis.mag/tsh nl. 3. Elevated troponin - consider echo. last 05.05.2018. EKG in am. statin allergic. continue 81 mg asa. 4. Acute toxic vs metabolic encephalopathy - sepsis vs home morphine. improved. 5. Chronic pain due to DDD, recent surgery [facility]. Possibly took extra morphine doses at home. Prior visit with concern for drug seeking behavior. 6. DMt2 - SSI, continue TID insulin. patient did not eat at all yesterday, therefore mealtime insulins were not given. Encouraged pt to eat today. 7. CKDIII - stable DVT ppx: lovenox DC planning: lives alone, ptot evals. He may no longer be appropriate for home given his initial presentation. This patient was seen by Tho Salcedo PA-C under the supervision of Dr. Macdonald <Gary Macdonald F - Last Filed: 01/18/20 13:46> Vitals/I&O's: Vital Signs Temp Pulse Resp BP Pulse Ox 98.0 F 76 20 H 115/58 L 99 01/18/20 09:33 01/18/20 09:33 01/18/20 09:33 01/18/20 09:33 01/18/20 09:33 Oxygen Flow Rate (L/min) 2 Oxygen Delivery Method Room Air Weight: 173 lb 1.006 oz Body Mass Index (BMI) 28.1 Finger Stick Blood Glucose 131 Intake and Output for Last 24 Hours 01/16/20 01/17/20 01/18/20 23:59 23:59 23:59 Intake Total 3503.75 / 3503.75 1848.93 / 2268.93 1048.50 / 1048.50 Output Total 1125 / 1125 344 / 444 100 / 100 Balance 2378.75 / 2378.75 1504.93 / 1824.93 948.50 / 948.50 Microbiology Past 72 Hours 01/15/20 16:00 Blood Culture (Wb) - Right Wrist Blood Culture - Preliminary No growth in 48 hours. 01/15/20 15:15 Blood Culture (Wb) - Arm Right Blood Culture - Preliminary No growth in 48 hours. 01/17/20 10:45 Stool C. difficile DNA Amplification - Final Laboratory Results 01/17/20 16:14: POC Glucose 177 H 01/17/20 21:25: POC Glucose 166 H 01/18/20 05:53: WBC 10.3, RBC 3.47 L, Hgb 8.6 L, Hct 28.4 L, MCV 81.8, MCH 24.8 L, MCHC 30.3 L, RDW Std Deviation 44.5 H, RDW Coeff of Maria Luisa 14.8 H, Plt Count 263, MPV 8.9, Immature Gran % (Auto) 1.100 H, Neut % (Auto) 72.5 H, Lymph % (Auto) 12.2 L, Warrick % (Auto) 11.7 H, Eos % (Auto) 2.2, Baso % (Auto) 0.3, Absolute Neuts (auto) 7.4, Absolute Lymphs (auto) 1.25, Nucleated RBC % 0 01/18/20 05:53: Sodium 138, Potassium 3.6, Chloride 107, Carbon Dioxide 24.0, Anion Gap 7, BUN 17, Creatinine 1.24, Estim Creat Clear Calc 47.16, Est GFR (MDRD) Af Amer 73, Est GFR (MDRD) Non-Af 61, BUN/Creatinine Ratio 13.7, Glucose 140 H, Calcium 8.1 L 01/18/20 08:35: POC Glucose 149 H 01/18/20 11:30: POC Glucose 185 H Current Medications Acetaminophen (Tylenol) 1,000 mg PO TID [facility] Last Admin: 01/18/20 05:59 Dose: 1,000 mg Documented by: Apixaban (Eliquis) 5 mg PO BID [facility] Last Admin: 01/18/20 09:30 Dose: 5 mg Documented by: Aspirin (Aspirin, Baby) 81 mg PO DAILY@0800 [facility] Last Admin: 01/18/20 09:30 Dose: 81 mg Documented by: Dextrose (D50w Syringe) 0 gm IV X1 PRN; Protocol PRN Reason: Hypoglycemia Diltiazem HCl (Cardizem Cd) 120 mg PO Q12 [facility] Last Admin: 01/18/20 09:30 Dose: 120 mg Documented by: Glucagon () 1 mg IM .X1 PRN PRN Reason: Hypoglycemia Cefazolin Sodium 2 gm/ Sodium (Chloride) 110 mls @ 150 mls/hr IV Q8 [facility] Last Infusion: 01/18/20 06:38 Dose: Infused Documented by: Sodium Chloride () 250 mls @ 15 mls/hr IV .[id number] PRN PRN Reason: Saline Flush Last Infusion: 01/18/20 10:57 Dose: 0 mls/hr Documented by: Vancomycin IV Pharmacy to Dose (1 ea/ Sodium Chloride) 500 mls @ 250 mls/hr IV X1 PRN; Protocol PRN Reason: Rx to Dose Vancomycin HCl () 500 mg in 100 mls @ 100 mls/hr IV Q12H [facility] Insulin Human Lispro (Humalog Kwikpen (Bkc)) 34 unit SC TIDCM [facility] Last Admin: 01/18/20 11:31 Dose: Not Given Documented by: Insulin Human Lispro (Humalog Kwikpen (Bkc)) 0 unit SC ACHS [facility]; Protocol Last Admin: 01/18/20 11:31 Dose: 1 u Documented by: Isosorbide Mononitrate (Imdur) 30 mg PO DAILY [facility] Last Admin: 01/18/20 09:31 Dose: 30 mg Documented by: Lidocaine (Lidoderm Patch) 1 patch TOPICAL DAILY [facility]; Protocol Last Admin: 01/18/20 09:31 Dose: 1 patch Documented by: Nitroglycerin (Nitrostat) 0.4 mg SUBLINGUAL Q5M PRN PRN Reason: CARDIAC/CHEST PAIN Ondansetron HCl (Zofran) 4 mg IV Q6H PRN PRN PRN Reason: NAUSEA/VOMITING Last Admin: 01/17/20 22:37 Dose: 4 mg Documented by: Oxycodone HCl (Oxyir) 5 - 10 mg PO Q6H PRN PRN PRN Reason: Pain Score 6-10/10 Sodium Chloride () 10 - 40 ml IV UD PRN PRN Reason: SALINE FLUSH Last Admin: 01/18/20 05:54 Dose: 10 ml Documented by: Addendum: Dr. Macdonald I personally examined the patient and reviewed the chart. I agree with the above. 74-year-old male presenting with acute metabolic encephalopathy versus possible toxic encephalopathy secondary to morphine usage for his recent spinal surgery as well as severe sepsis secondary to right lower extremity cellulitis. He was transitioned to Ancef and has had a significant improvement in his white count however he is having increased diarrhea and therefore a C. difficile test has been sent and is negative. We will continue with the Ancef, but will add IV vancomycin because his redness does appear to be spreading a little bit. We will also obtain a MRSA screen. He also did go into A. fib and was placed on Cardizem and amiodarone, he has been transitioned to oral Cardizem and his amiodarone has been discontinued. He did have an increase in troponin to the 0.48, and this is likely demand ischemia from his tachycardia, will continue to monitor, will place him on Eliquis for his new onset A. fib, may need to obtain an echo on Sunday otherwise can follow-up as an outpatient with cardiology. Also will have to continue monitoring his hemoglobin as he is dropping, stools are not red or dark. Inpatient E&M: [id number] [facility] L[facility]
[2020-01-18 16:55] LABS: Bedside Glucose 142 mg/dL (70-110)
[2020-01-18 17:16] LABS: M R Staph aureus DNA By PCR POSITIVE (Negative); Probe Check PASS; Staph aureus DNA By PCR POSITIVE (Negative)
[2020-01-18 23:01] LABS: Bedside Glucose 133 mg/dL (70-110)
[2020-01-18] MEDS: Vancomycin IV 500 MG/100 ML BAG 100 MG IV (23:22)
[2020-01-19] VITALS (9 sets, daily range): BP systolic 111–139; BP diastolic 51–74; PULSE 75–90; RESP 17–18; TEMP 36.6–37.8; O2SAT 93–100
[2020-01-19] MEDS: oxyCODONE 5 MG Tablet PO ×2 (04:37→10:42)
[2020-01-19 06:05] LABS: Absolute Neutrophil Count 7.6 X10^3/uL (2.0-7.7); Basophil# 0.03 X10^3/uL; Basophil% 0.3 % (0-1); Eosinophil# 0.41 X10^3/uL; Hematocrit 26.1 % (40-54); Hemoglobin 8.1 g/dL (13.0-16.5); Lymphocyte % 8.7 % (19-41); Mean Corpuscular Volume 80.6 fL (80-94); Mean Platelet Vol. 8.9 fl (6.2-12.0); Monocyte# 1.25 X10^3/uL; Monocyte% 12.1 % (0-10); NRBC Flagged by Analyzer 0 % (0-5); Neutrophil # 7.59 X10^3/uL (2.7-7.7); Neutrophil % 73.7 % (47-70); Platelet Count 255 K/mm3 (150-450); RBC Distribution Width CV 14.9 % (11.6-14.6); RBC Distribution Width SD 44.1 fl (35.1-43.9); Red Blood Count 3.24 M/mm3 (4.6-6.2); White Blood Count 10.3 K/mm3 (4.4-11.0)
[2020-01-19 06:29] LABS: Anion Gap 8 (5-15); BUN 15 mg/dL (7-18); Calcium,Total 7.9 mg/dL (8.5-10.1); Chloride 107 mmol/L (98-107); Creatinine, Serum 1.15 mg/dL (0.70-1.30); EST Glomerular Filtration Rate 66 mL/min (>60); Est Glom Filt Rate - Afr Amer 80 mL/min (>60); Estimated Creatinine Clearance 50.86 ml/min; Glucose 133 mg/dL (74-106); Potassium 3.4 mmol/L (3.5-5.1); Sodium Level 138 mmol/L (136-145)
[2020-01-19] MEDS: Cefazolin 2 GM in 0.9% Normal Saline 100 ML IV ×2 (06:50→14:10)
[2020-01-19] MEDS: Acetaminophen 500 MG Tablet 1000 MG PO ×2 (06:54→14:11)
[2020-01-19 07:06] LABS: Bedside Glucose 137 mg/dL (70-110)
--- NOTE | 2020-01-19 09:05 | CASEMGMT ---
Patient is ready for discharge to the correction today. BARTOLOME called [place] and notified Dimitrios. BARTOLOME also faxed updates to [facility]. Monet GARCIA MSW
[2020-01-19] MEDS: Insulin Lispro 100 UNIT/ML INSULN.PEN 34 UNIT SC (09:25)
[2020-01-19] MEDS: APIXABAN 5 MG TABLET PO (09:26)
[2020-01-19] MEDS: Lidocaine 5% Patch 1 PATCH TOPICAL (09:26)
[2020-01-19] MEDS: dilTIAZem CD 120 MG Capsule PO (09:26)
[2020-01-19] MEDS: Isosorbide Mononitrate 30 MG Tablet PO (09:26)
[2020-01-19] MEDS: Aspirin 81 MG TAB.CHEW PO (09:26)
[2020-01-19] MEDS: Vancomycin IV 500 MG/100 ML BAG 100 MG IV (09:32)
--- NOTE | 2020-01-19 11:02 | NURSING ---
son updated as requested.
[2020-01-19 11:16] LABS: Pathologist Review Reviewed
--- NOTE | 2020-01-19 12:18 | NURSING ---
pt up in chair slightly drowsy but a&ox3. states pain medication effective. does occassionally moan when falls back asleep. 2lnc maintained while sleeping. refusing lunch and refusing scheduled insulin. states indigestion. denies chestpain stating more of a burning sensation but refuses all meds for it. pt sipping on milk. denies all furthre needs call light within reach
[2020-01-19 12:35] LABS: Bedside Glucose 79 mg/dL (70-110)
--- NOTE | 2020-01-19 14:10 | PCM.PN.HOSP ---
Patient Problems: Active and Suspected Problems Severe sepsis (Acute) Cellulitis of right leg without foot (Acute) Acute delirium (Acute) Cellulitis (Acute) Reason for Visit: RLE pain Subjective: Severe pain at leg infection. Blister has de roofed and had purulent drainage - sampled and showing MRSA. No fever/chills overnight. No nausea/vomiting/diarrhea. No SOB/cough. Confusion resolved. Vitals/I&O's: Vital Signs Temp Pulse Resp BP Pulse Ox 99.7 F H 88 18 127/62 H 95 01/19/20 14:07 01/19/20 14:07 01/19/20 14:07 01/19/20 14:07 01/19/20 14:07 Oxygen Flow Rate (L/min) 2 Oxygen Delivery Method Room Air Weight: 174 lb 9.698 oz Body Mass Index (BMI) 28.1 Finger Stick Blood Glucose 131 Intake and Output for Last 24 Hours 01/17/20 01/18/20 01/19/20 23:59 23:59 23:59 Intake Total 1848.93 / 2268.93 2771.75 / 3021.75 965 / 965 Output Total 344 / 444 100 / 500 800 / 800 Balance 1504.93 / 1824.93 2671.75 / 2521.75 165 / 165 General: Alert, Oriented x3, Cooperative HEENT: Atraumatic, PERRLA, EOMI, Normocephalic Neck: Supple, No JVD, Negative Carotid Bruits Lungs: Clear to auscultation, Normal air movement Cardiovascular: Regular rate, No murmurs Abdomen: Bowel Sounds Present, Soft, Non Tender Extremities: No edema, Capillary Refill Less than 3 Seconds Skin: - - RLE cellulitis mild improvement in erythema, blister deroofed. alley tender to light touch, and still warm and erythematous Musculoskeletal: No Tenderness to Palpation of Joints or Extremities Neurological: Cranial nerves II-XII grossly intact Psych/Mental Status: Normal Affect, Appropriate, Alert and oriented to time, place, person, mood and affect Microbiology Past 72 Hours 01/18/20 16:11 Stool Stool Occult Blood (IRAIS) - Final 01/15/20 16:00 Blood Culture (Wb) - Right Wrist Blood Culture - Preliminary No growth in 48 hours. 01/15/20 15:15 Blood Culture (Wb) - Arm Right Blood Culture - Preliminary No growth in 48 hours. 01/17/20 10:45 Stool C. difficile DNA Amplification - Final Laboratory Results 01/17/20 04:03: Diff Path Review Reviewed 01/18/20 15:40: S.aureus Protein A PCR POSITIVE H, MRSA (PCR) POSITIVE H 01/18/20 16:45: POC Glucose 142 H 01/18/20 22:24: POC Glucose 133 H 01/19/20 05:26: WBC 10.3, RBC 3.24 L, Hgb 8.1 L, Hct 26.1 L, MCV 80.6, MCH 25.0 L, MCHC 31.0 L, RDW Std Deviation 44.1 H, RDW Coeff of Maria Luisa 14.9 H, Plt Count 255, MPV 8.9, Immature Gran % (Auto) 1.200 H, Neut % (Auto) 73.7 H, Lymph % (Auto) 8.7 L, [place] % (Auto) 12.1 H, Eos % (Auto) 4.0, Baso % (Auto) 0.3, Absolute Neuts (auto) 7.6, Absolute Lymphs (auto) 0.90, Nucleated RBC % 0 01/19/20 05:26: Sodium 138, Potassium 3.4 L, Chloride 107, Carbon Dioxide 23.0, Anion Gap 8, BUN 15, Creatinine 1.15, Estim Creat Clear Calc 50.86, Est GFR (MDRD) Af Amer 80, Est GFR (MDRD) Non-Af 66, BUN/Creatinine Ratio 13.0, Glucose 133 H, Calcium 7.9 L 01/19/20 06:56: POC Glucose 137 H 01/19/20 12:12: POC Glucose 79 Current Medications Acetaminophen (Tylenol) 1,000 mg PO TID [facility] Last Admin: 01/19/20 06:54 Dose: 1,000 mg Documented by: Apixaban (Eliquis) 5 mg PO BID [facility] Last Admin: 01/19/20 09:26 Dose: 5 mg Documented by: Aspirin (Aspirin, Baby) 81 mg PO DAILY@0800 [facility] Last Admin: 01/19/20 09:26 Dose: 81 mg Documented by: Dextrose (D50w Syringe) 0 gm IV X1 PRN; Protocol PRN Reason: Hypoglycemia Diltiazem HCl (Cardizem Cd) 120 mg PO Q12 [facility] Last Admin: 01/19/20 09:26 Dose: 120 mg Documented by: Glucagon () 1 mg IM .X1 PRN PRN Reason: Hypoglycemia Cefazolin Sodium 2 gm/ Sodium (Chloride) 110 mls @ 150 mls/hr IV Q8 [facility] Last Infusion: 01/19/20 09:35 Dose: Infused Documented by: Sodium Chloride () 250 mls @ 15 mls/hr IV .[id number] PRN PRN Reason: Saline Flush Last Infusion: 01/19/20 09:35 Dose: 0 mls/hr Documented by: Vancomycin IV Pharmacy to Dose (1 ea/ Sodium Chloride) 500 mls @ 250 mls/hr IV X1 PRN; Protocol PRN Reason: Rx to Dose Vancomycin HCl () 500 mg in 100 mls @ 100 mls/hr IV Q12H [facility] Last Infusion: 01/19/20 09:35 Dose: 100 mls/hr Documented by: Insulin Human Lispro (Humalog Kwikpen (Bkc)) 34 unit SC TIDCM [facility] Last Admin: 01/19/20 12:21 Dose: Not Given Documented by: Insulin Human Lispro (Humalog Kwikpen (Bkc)) 0 unit SC ACHS [facility]; Protocol Last Admin: 01/19/20 12:14 Dose: Not Given Documented by: Isosorbide Mononitrate (Imdur) 30 mg PO DAILY [facility] Last Admin: 01/19/20 09:26 Dose: 30 mg Documented by: Lidocaine (Lidoderm Patch) 1 patch TOPICAL DAILY [facility]; Protocol Last Admin: 01/19/20 09:26 Dose: 1 patch Documented by: Nitroglycerin (Nitrostat) 0.4 mg SUBLINGUAL Q5M PRN PRN Reason: CARDIAC/CHEST PAIN Ondansetron HCl (Zofran) 4 mg IV Q6H PRN PRN PRN Reason: NAUSEA/VOMITING Last Admin: 01/17/20 22:37 Dose: 4 mg Documented by: Oxycodone HCl (Oxyir) 5 - 10 mg PO Q6H PRN PRN PRN Reason: Pain Score 6-10/10 Last Admin: 01/19/20 10:42 Dose: 10 mg Documented by: Sodium Chloride () 10 - 40 ml IV UD PRN PRN Reason: SALINE FLUSH Last Admin: 01/18/20 22:26 Dose: 10 ml Documented by: STROKE Vital Signs/Narrative: Vital Signs Temp Pulse Resp BP Pulse Ox 01/19/20 14:07 99.7 F H 88 18 127/62 H 95 01/19/20 12:16 100.0 F H 79 18 114/51 L 100 01/19/20 12:00 86 Medical Necessity - Tobacco Use Smoking Status: Former smoker Tobacco Use: Non-smoker Assessment/Plan All Active Problems Severe sepsis (Acute) Cellulitis of right leg without foot (Acute) Acute delirium (Acute) Cellulitis (Acute) Encephalopathy acute (Resolved) Pneumonia (Resolved) Severe sepsis with acute organ dysfunction (Resolved) 1. Severe sepsis 2/2 cellulitis RLE - no further fever or leukocytosis, however with the expansion of the area of cellulitis and the new bulla present that appears to have pus, will broaden abx with Vanco added today. Nasal mrsa screen. If blister opens, will cx, however I would prefer to leave it closed at this time to prevent a major opening to further infection. Blood cultures negative. 2. pAfib RVR - likely 2/2 sepsis. controlled on cardizem, continue eliquis.mag/tsh nl. 3. Elevated troponin - consider echo. last 05.05.2018. EKG in am. statin allergic. continue 81 mg asa. 4. Acute toxic vs metabolic encephalopathy - sepsis vs home morphine. improved. 5. Chronic pain due to DDD, recent surgery [facility]. Possibly took extra morphine doses at home. Prior visit with concern for drug seeking behavior. 6. DMt2 - SSI, continue TID insulin. patient did not eat at all yesterday, therefore mealtime insulins were not given. Encouraged pt to eat today. 7. CKDIII - stable DVT ppx: lovenox DC planning: lives alone, ptot evals. He may no longer be appropriate for home given his initial presentation. This patient was seen by Tho Salcedo PA-C under the supervision of Dr. Macdonald
--- NOTE | 2020-01-19 14:21 | TREXTCA.CO_ITS ---
- Diet 01/15/20 18:51 Diet: Calorie Controlled How many daily calories?: 1800 calorie Diet: Cardiac/Low Cholesterol Food consistency:: Regular Liquid Consistency:: Regular/Thin - Routine Orders/Code Status Suppository Type: Dulcolax 10mg O2 Frequency: PRN Routine Lab Work: CBC - 1 day, BMP - 5 days, - - Check Iron/TIBC tomorrow - Wound(s) RIGHT ARANDA Wound Type: blister - Therapies Physical Therapy: Eval and Treat Occupational Therapy: Eval and Treat - Problem/Diagnosis (1) Cellulitis Status: Acute Current Visit: Yes (2) Severe sepsis Status: Acute Current Visit: Yes (3) Paroxysmal atrial fibrillation Status: Acute Comment: RVR Current Visit: Yes (4) Chronic pain syndrome Status: Chronic Current Visit: Yes (5) hypertension Status: Chronic Current Visit: No (6) diabetes mellitus type II Status: Chronic Current Visit: No (7) coronary artery disease Status: Chronic Comment: status post stent in 10/2013, following with Dr. Levine/ Current Visit: No - Allergies/Procedures Done in Hospital Allergies/Adverse Reactions: Allergies adhesive Allergy (Unknown, Verified 01/15/20 14:43) Unknown PER INTERMEDIATE PAPERS choline fenofibrate [From Trilipix] Allergy (Unknown, Verified 01/15/20 14:43) Unknown PER INTERMEDIATE PAPERS pregabalin [From Lyrica] Allergy (Unknown, Verified 01/15/20 14:43) Unknown PER INTERMEDIATE PAPERS Lnjbjbd-Sbp-Pja Reductase Inhibitor Allergy (Unknown, Verified 01/15/20 14:43) Unknown PER INTERMEDIATE PAPERS Sulfa (Sulfonamide Antibiotics) Allergy (Verified 01/15/20 14:43) Itching vancomycin Allergy (Verified 01/15/20 14:43) Itching Procedures: None - Type of Care/Length of Stay Estimated LOS: Convalescent Care Less Than 30 days Type of Care Needed: Skilled Rehab Potential: Fair Prognosis: Fair - Additional Orders/Day of Discharge Day of Discharge: 01/19/20 - Dietary and Speech Recommendations Dietitian Recommendations/Changes: Continue 1800 rosemary/cardiac diet. - Follow Up Care Primary Care Physician: Boom Aviles [Primary Care Provider] - Please follow up with your Primary Care Physician in: 1-2 weeks
--- NOTE | 2020-01-19 14:33 | PCM.DC.SUM ---
Discharge Date and Diagnosis - Problem List Patient Problems: Active and Suspected Problems Severe sepsis (Acute) Cellulitis of right leg without foot (Acute) Acute delirium (Acute) Cellulitis (Acute) Paroxysmal atrial fibrillation (Acute) RVR Date of Admission: 01/15/20 Date of Discharge: 01/19/20 - Primary Discharge Diagnosis Active and Suspected Problems Severe sepsis (Acute) 2/2 Cellulitis of right leg without foot (Acute) secondary to MRSA Acute metabolic encephalopathy secondary to severe sepsisand toxic encephalopathy due to home morphine Paroxysmal atrial fibrillation with rapid ventricular response secondary to sepsis Type 2 diabetes History of CAD, prior stent - Secondary Discharge Diagnosis Chronic Problems Acute exacerbation of chronic low back pain (Chronic) Chronic back pain (Chronic) Chronic pain syndrome (Chronic) Chronic pain (Chronic) NSTEMI (non-ST elevated myocardial infarction) (Chronic) hypertension (Chronic) diabetes mellitus type II (Chronic) coronary artery disease (Chronic) status post stent in 10/2013, following with Dr. Levine/ Hospital Course and Treatment Imaging Results: CT/Brain/Head without Contrast IMPRESSION: Chronic involutional changes of the brain. RAD/Chest 1 View (Portable) IMPRESSION: Mild degree of increased markings at the lung bases suggestive of bibasilar atelectasis. Consults: Chepe - BESSY Operations: None Procedures: None Summary of Care Provided: Hospital Course: The patient is a 74 year old M with past medical history of CAD with prior stent, type 2 diabetes, back pain with recent back surgery, osteoarthritis, who presented to the emergency room with increased confusion. The patient had called EMS from his house and threatened to kill himself with overdosing on his home morphine due to severe back pain. He initially refused transport to the hospital. He called back later with increased right lower extremity pain and was found to have increased red rash. He was brought to the emergency room found to have cellulitis of the right lower extremity, the patient was severely confused with acute metabolic encephalopathy secondary to severe sepsis. Patient appeared to have severe sepsis as he had area consistent with cellulitis in the right lower extremity with no drainage, increased erythema, warmth, tenderness, increased white count at 18.9 with left shift present, tachycardia, tachypnea, and later fever. Lactic acid was elevated at 3.0. Patient was admitted to the ICU with severe sepsis. He was placed on Zosyn, had a questionable vancomycin allergy. The patient's rash appeared consistent with a strep infection as there is no initial area of drainage or collection. The patient did well in the ICU overnight with resolution of his encephalopathy. Patient was transitioned to the progressive care unit. The following day his rash worsened with increased pain, and spreading of the erythema. He developed an area with a large blister with purulent fluid underneath, but no obvious deeper abscess. This deroofed by itself, a culture was taken and the serology demonstrates MRSA. Vancomycin was added. He continued to have severe pain at the site. Infectious disease was consulted. They recommended 7 more days of doxy and Keflex. The patient continued to have significant debility due to his chronic back problems and severe chronic back pain. He was agreeable to transition to a half-way facility. He was discharged half-way in stable condition. He will need to follow-up with his PCP in 1 to 2 weeks. Also of note while here he developed atrial fibrillation with rapid ventricular response. He was treated with oral Cardizem and he was well controlled with this. He was initially given therapeutic Lovenox and transitioned to Eliquis. He will need to continue both of these. He may be referred to cardiology after discharge as needed, he follows with Dr. Neal Levine. This patient was seen by Tho Salcedo PA-C under the supervision of Doctor Graff. [] Patient Problems: Active and Suspected Problems Severe sepsis (Acute) Cellulitis of right leg without foot (Acute) Acute delirium (Acute) Cellulitis (Acute) Paroxysmal atrial fibrillation (Acute) RVR - Physical Exam Vitals/I&O's: Vital Signs Temp Pulse Resp BP Pulse Ox 99.7 F H 88 18 127/62 H 95 01/19/20 14:07 01/19/20 14:07 01/19/20 14:07 01/19/20 14:07 01/19/20 14:07 Oxygen Flow Rate (L/min) 2 Oxygen Delivery Method Room Air Weight: 174 lb 9.698 oz Body Mass Index (BMI) 28.1 Finger Stick Blood Glucose 131 Intake and Output for Last 24 Hours 01/17/20 01/18/20 01/19/20 23:59 23:59 23:59 Intake Total 1848.93 / 2268.93 2771.75 / 3021.75 965 / 965 Output Total 344 / 444 100 / 500 800 / 800 Balance 1504.93 / 1824.93 2671.75 / 2521.75 165 / 165 General: Alert, Oriented x3, Cooperative HEENT: Atraumatic, PERRLA, EOMI, Normocephalic Neck: Supple, No JVD, Negative Carotid Bruits Lungs: Clear to auscultation, Normal air movement Cardiovascular: Regular rate, No murmurs Abdomen: Bowel Sounds Present, Soft, Non Tender Extremities: No edema, Capillary Refill Less than 3 Seconds Skin: - - RLE deroofed blister, cellulitic area, erythematous, warm, tender to light touch. Musculoskeletal: No Tenderness to Palpation of Joints or Extremities Neurological: Cranial nerves II-XII grossly intact Psych/Mental Status: Normal Affect, Appropriate, Alert and oriented to time, place, person, mood and affect Microbiology Past 72 Hours 01/18/20 16:11 Stool Stool Occult Blood (IRAIS) - Final 01/15/20 16:00 Blood Culture (Wb) - Right Wrist Blood Culture - Preliminary No growth in 48 hours. 01/15/20 15:15 Blood Culture (Wb) - Arm Right Blood Culture - Preliminary No growth in 48 hours. 01/17/20 10:45 Stool C. difficile DNA Amplification - Final Laboratory Results 01/17/20 04:03: Diff Path Review Reviewed 01/18/20 15:40: S.aureus Protein A PCR POSITIVE H, MRSA (PCR) POSITIVE H 01/18/20 16:45: POC Glucose 142 H 01/18/20 22:24: POC Glucose 133 H 01/19/20 05:26: WBC 10.3, RBC 3.24 L, Hgb 8.1 L, Hct 26.1 L, MCV 80.6, MCH 25.0 L, MCHC 31.0 L, RDW Std Deviation 44.1 H, RDW Coeff of Maria Luisa 14.9 H, Plt Count 255, MPV 8.9, Immature Gran % (Auto) 1.200 H, Neut % (Auto) 73.7 H, Lymph % (Auto) 8.7 L, [place] % (Auto) 12.1 H, Eos % (Auto) 4.0, Baso % (Auto) 0.3, Absolute Neuts (auto) 7.6, Absolute Lymphs (auto) 0.90, Nucleated RBC % 0 01/19/20 05:26: Sodium 138, Potassium 3.4 L, Chloride 107, Carbon Dioxide 23.0, Anion Gap 8, BUN 15, Creatinine 1.15, Estim Creat Clear Calc 50.86, Est GFR (MDRD) Af Amer 80, Est GFR (MDRD) Non-Af 66, BUN/Creatinine Ratio 13.0, Glucose 133 H, Calcium 7.9 L 01/19/20 06:56: POC Glucose 137 H 01/19/20 12:12: POC Glucose 79 Current Medications Acetaminophen (Tylenol) 1,000 mg PO TID [facility] Last Admin: 01/19/20 14:11 Dose: 1,000 mg Documented by: Apixaban (Eliquis) 5 mg PO BID [facility] Last Admin: 01/19/20 09:26 Dose: 5 mg Documented by: Aspirin (Aspirin, Baby) 81 mg PO DAILY@0800 [facility] Last Admin: 01/19/20 09:26 Dose: 81 mg Documented by: Dextrose (D50w Syringe) 0 gm IV X1 PRN; Protocol PRN Reason: Hypoglycemia Diltiazem HCl (Cardizem Cd) 120 mg PO Q12 [facility] Last Admin: 01/19/20 09:26 Dose: 120 mg Documented by: Glucagon () 1 mg IM .X1 PRN PRN Reason: Hypoglycemia Cefazolin Sodium 2 gm/ Sodium (Chloride) 110 mls @ 150 mls/hr IV Q8 [facility] Last Admin: 01/19/20 14:10 Dose: 150 mls/hr Documented by: Sodium Chloride () 250 mls @ 15 mls/hr IV .[id number] PRN PRN Reason: Saline Flush Last Infusion: 01/19/20 09:35 Dose: 0 mls/hr Documented by: Vancomycin IV Pharmacy to Dose (1 ea/ Sodium Chloride) 500 mls @ 250 mls/hr IV X1 PRN; Protocol PRN Reason: Rx to Dose Vancomycin HCl () 500 mg in 100 mls @ 100 mls/hr IV Q12H [facility] Last Infusion: 01/19/20 09:35 Dose: 100 mls/hr Documented by: Insulin Human Lispro (Humalog Kwikpen (Bkc)) 34 unit SC TIDCM [facility] Last Admin: 01/19/20 12:21 Dose: Not Given Documented by: Insulin Human Lispro (Humalog Kwikpen (Bkc)) 0 unit SC ACHS [facility]; Protocol Last Admin: 01/19/20 12:14 Dose: Not Given Documented by: Isosorbide Mononitrate (Imdur) 30 mg PO DAILY [facility] Last Admin: 01/19/20 09:26 Dose: 30 mg Documented by: Lidocaine (Lidoderm Patch) 1 patch TOPICAL DAILY [facility]; Protocol Last Admin: 01/19/20 09:26 Dose: 1 patch Documented by: Nitroglycerin (Nitrostat) 0.4 mg SUBLINGUAL Q5M PRN PRN Reason: CARDIAC/CHEST PAIN Ondansetron HCl (Zofran) 4 mg IV Q6H PRN PRN PRN Reason: NAUSEA/VOMITING Last Admin: 01/17/20 22:37 Dose: 4 mg Documented by: Oxycodone HCl (Oxyir) 5 - 10 mg PO Q6H PRN PRN PRN Reason: Pain Score 6-10/10 Last Admin: 01/19/20 10:42 Dose: 10 mg Documented by: Sodium Chloride () 10 - 40 ml IV UD PRN PRN Reason: SALINE FLUSH Last Admin: 01/18/20 22:26 Dose: 10 ml Documented by: Discharge Diet: Low fat/ Low Cholesterol, 1800 Calorie Control Diet, 2000 mg Sodium Diet Discharge Activity: Return to Normal Activity Home Medications: Medications to take at Discharge Insulin Lispro [Humalog KwikPen] 34 unit SQ TIDCM 10/08/17 Isosorbide Mononitrate [Isosorbide Mononitrate ER] 30 mg PO DAILY 10/08/17 Albuterol Inhaler [Ventolin Hfa] 1 - 2 puff INHALATION DAILY PRN PRN 01/15/20 Mometasone Furoate/Dimethicone [Quinixil 0.1% Cream-5% Crm Kit] 1 applicatio TOPICAL BID 01/15/20 Acetaminophen [Tylenol] 1,000 mg PO TID tablet 01/19/20 Apixaban [Eliquis] 5 mg PO BID tablet 01/19/20 Aspirin [Aspirin, Baby] 81 mg PO DAILY@0800 tab.chew 01/19/20 Cephalexin [Keflex] 500 mg PO Q8H #21 capsule 01/19/20 Diltiazem CD [Cardizem CD] 120 mg PO Q12 capsule 01/19/20 Doxycycline [Vibramycin] 100 mg PO BID #14 capsule 01/19/20 Insulin Lispro [Humalog KwikPen] See Protocol SC ACHS insuln.pen 01/19/20 Lidocaine [Lidoderm Patch] 1 patch TOPICAL DAILY patch 01/19/20 Nitroglycerin (INPATIENT USE) [Nitrostat] 0.4 mg SUBLINGUAL Q5M PRN tab.subl 01/19/20 Oxycodone [Oxyir] 5 mg PO Q4H PRN PRN 3 Days #18 tab 01/19/20 Following Prescrptions Were Given to Patient: Cephalexin [Keflex] 500 mg PO Q8H #21 capsule Oxycodone [Oxyir] 5 mg PO Q4H PRN PRN 3 Days #18 tab PRN Reason: Pain Score 6-10/10 Prescription Printed Doxycycline [Vibramycin] 100 mg PO BID #14 capsule Primary Care Physician: Boom Aviles [Primary Care Provider] - Please follow up with your Primary Care Physician in: 1-2 weeks [facility]position: [facility] facility Minutes spent on discharge:: 35 Patient Condition:: Stable Medical Necessity - Tobacco Use Smoking Status: Former smoker Tobacco Use: Non-smoker Meaningful Use Info Meaningful Use Diagnoses (Choose all that apply): None applicable
--- NOTE | 2020-01-19 15:04 | PCM.HP.ID ---
Reason for Consult: cellulitis Consulted by: Dr. Graff History of Present Illness: The patient is a 74 year old M recent admission to [facility], presented 4/2 with confusion, RLE pain/redness/swelling. Admitted to icu, transferred to floor, had been on cefazolin, vanc added with (+) nares screen for mrsa. Having some blistering. Redness now improving, but some blistering. Still with pain. No fever here. Full ROS performed and neg except as noted above. - Medical History Past Medical History (Chronic Problems): Chronic Problems Acute exacerbation of chronic low back pain (Chronic) Chronic back pain (Chronic) Chronic pain syndrome (Chronic) Chronic pain (Chronic) NSTEMI (non-ST elevated myocardial infarction) (Chronic) hypertension (Chronic) diabetes mellitus type II (Chronic) coronary artery disease (Chronic) status post stent in 10/2013, following with Dr. Levine/ Allergies/Adverse Reactions: Allergies adhesive Allergy (Unknown, Verified 01/15/20 14:43) Unknown [facility] choline fenofibrate [From Trilipix] Allergy (Unknown, Verified 01/15/20 14:43) Unknown [facility] pregabalin [From Lyrica] Allergy (Unknown, Verified 01/15/20 14:43) Unknown [facility] Ppvazny-Mwu-Snw Reductase Inhibitor Allergy (Unknown, Verified 01/15/20 14:43) Unknown [facility] Sulfa (Sulfonamide Antibiotics) Allergy (Verified 01/15/20 14:43) Itching vancomycin Allergy (Verified 01/15/20 14:43) Itching Home Medications: Ambulatory Orders Medication Instructions Recorded Insulin Lispro [Humalog KwikPen] 34 unit SQ TIDCM 10/08/17 Isosorbide Mononitrate [Isosorbide 30 mg PO DAILY 10/08/17 Mononitrate ER] Albuterol Inhaler [Ventolin Hfa] 1 - 2 puff INHALATION DAILY PRN PRN 01/15/20 Mometasone Furoate/Dimethicone 1 applicatio TOPICAL BID 01/15/20 [Quinixil 0.1% Cream-5% Crm Kit] Acetaminophen [Tylenol] 1,000 mg PO TID tab 01/19/20 Apixaban [Eliquis] 5 mg PO BID tab 01/19/20 Aspirin [Aspirin, Baby] 81 mg PO DAILY@0800 tab.chew 01/19/20 Cephalexin [Keflex] 500 mg PO Q8H #21 cap 01/19/20 Diltiazem CD [Cardizem CD] 120 mg PO Q12 cap 01/19/20 Doxycycline [Vibramycin] 100 mg PO BID #14 cap 01/19/20 Insulin Lispro [Humalog KwikPen] See Protocol SUBCUT ACHS 01/19/20 insuln.pen Lidocaine [Lidoderm Patch] 1 patch TOPICAL DAILY patch 01/19/20 Nitroglycerin (INPATIENT USE) 0.4 mg SUBLINGUAL Q5M PRN tab.subl 01/19/20 [Nitrostat] Oxycodone [Oxyir] 5 mg PO Q4H PRN PRN 3 Days #18 tab 01/19/20 - Social History SMOKING STATUS:: Former smoker Vital Signs Temp Pulse Resp BP Pulse Ox 99.7 F H 88 18 127/62 H 95 01/19/20 14:07 01/19/20 14:07 01/19/20 14:07 01/19/20 14:07 01/19/20 14:07 Oxygen Flow Rate (L/min) 2 Oxygen Delivery Method Room Air Weight: 79.2 kg Body Mass Index (BMI) 28.1 Finger Stick Blood Glucose 131 Microbiology Past 72 Hours 01/18/20 16:11 Stool Occult Blood (IRAIS) - Final Stool 01/15/20 16:00 Blood Culture - Preliminary Blood Culture (Wb) - Right Wrist No growth in 48 hours. 01/15/20 15:15 Blood Culture - Preliminary Blood Culture (Wb) - Arm Right No growth in 48 hours. 01/17/20 10:45 C. difficile DNA Amplification - Final Stool Laboratory Tests Past 24 Hrs 01/17/20 01/18/20 01/19/20 04:03 15:40 05:26 WBC 10.3 RBC 3.24 L Hgb 8.1 L Hct 26.1 L MCV 80.6 MCH 25.0 L MCHC 31.0 L RDW Std Deviation 44.1 H RDW Coeff of Maria Luisa 14.9 H Plt Count 255 MPV 8.9 Immature Gran % (Auto) 1.200 H Neut % (Auto) 73.7 H Lymph % (Auto) 8.7 L [place] % (Auto) 12.1 H Eos % (Auto) 4.0 Baso % (Auto) 0.3 Absolute Neuts (auto) 7.6 Absolute Lymphs (auto) 0.90 Nucleated RBC % 0 Diff Path Review Reviewed Sodium Potassium Chloride Carbon Dioxide Anion Gap BUN Creatinine Estim Creat Clear Calc Est GFR (MDRD) Af Amer Est GFR (MDRD) Non-Af BUN/Creatinine Ratio Glucose Calcium S.aureus Protein A PCR POSITIVE H MRSA (PCR) POSITIVE H 01/19/20 05:26 WBC RBC Hgb Hct MCV MCH MCHC RDW Std Deviation RDW Coeff of Maria Luisa Plt Count MPV Immature Gran % (Auto) Neut % (Auto) Lymph % (Auto) [place] % (Auto) Eos % (Auto) Baso % (Auto) Absolute Neuts (auto) Absolute Lymphs (auto) Nucleated RBC % Diff Path Review Sodium 138 Potassium 3.4 L Chloride 107 Carbon Dioxide 23.0 Anion Gap 8 BUN 15 Creatinine 1.15 Estim Creat Clear Calc 50.86 Est GFR (MDRD) Af Amer 80 Est GFR (MDRD) Non-Af 66 BUN/Creatinine Ratio 13.0 Glucose 133 H Calcium 7.9 L S.aureus Protein A PCR MRSA (PCR) - Other Studies Radiology: [] reviewed Other Studies: [] Route of nutrition/ use of supplements: [] Nutritional Intake: [] IV Site: [] Bassett Catheter: [] - Physical Exam General: Alert, Cooperative, No apparent distress HEENT: Atraumatic, PERRLA, EOMI Neck: Supple, No Nodes Lungs: Clear to auscultation, Normal air movement Cardiovascular: Regular rate, Regular Rhythm, Murmur Abdomen: Soft, Non Tender, Non-Distended Extremities: Edema - RLE Skin: Ulcer/ Wound - R sanchez/calf redness, mild warmth, some tenderness, no drainage IV Site: Peripheral, without redness Musculoskeletal: No Tenderness to Palpation of Joints or Extremities Neurological: Cranial nerves II-XII grossly intact - Assessment/Plan Antibiotics: [] Assessment/Plan: [] Active and Suspected Problems Severe sepsis (Acute) Cellulitis of right leg without foot (Acute) Acute delirium (Acute) Cellulitis (Acute) Paroxysmal atrial fibrillation (Acute) RVR RLE cellulitis - on vanc/cefazolin. Ok for d/c to [facility]CF on one more week of doxy and keflex. Wbc normalized, no fever here, redness improved. Will follow as needed, d/w Dr. Graff, thank you
--- NOTE | 2020-01-19 15:10 | CASEMGMT ---
Patient ready for discharge to [facility]. BARTOLOME faxed orders. BARTOLOME called [facility] and arranged for patient to get picked up at 4p via cot. BARTOLOME notified RN, [place], laboratory secretary, and patient's son. Plan: d/c to [facility] under skilled level of care on a convalescent stay. [facility] transported him via cot. Monet GARCIA MSW
--- NOTE | 2020-01-19 15:46 | NURSING ---
report called to Alia evangelista at [facility]
--- NOTE | 2020-01-19 16:10 | NURSING ---
report given to santiago for transfer to f
--- NOTE | 2020-01-19 16:14 | NURSING ---
left message for son of update on discharge
== END 2020-01-19 16:12 | disposition skilled nursing facility (03) | DRG 871 ==
LOC: ED 17:18 → ICU 17:41 → PCU 01-19 07:10
PROVIDERS: Family Medicine; Hospitalist; Physician Assistant; Physician Assistant Medical; Admitting Provider Internal Medicine; Emergency Provider Emergency Medicine; PCP Family Medicine; Visit Provider Internal Medicine
DX: A41.02 Sepsis due to Methicillin resistant Staphylococcus aureus (principal); G92 Toxic encephalopathy; K85.90 Acute pancreatitis without necrosis or infection, unspecified; L03.115 Cellulitis of right lower limb; R65.20 Severe sepsis without septic shock; I48.0 Paroxysmal atrial fibrillation; T40.2X5A Adverse effect of other opioids, initial encounter; I25.10 Atherosclerotic heart disease of native coronary artery without angina pectoris; Z95.5 Presence of coronary angioplasty implant and graft; Z79.52 Long term (current) use of systemic steroids; Z79.4 Long term (current) use of insulin; N40.0 Benign prostatic hyperplasia without lower urinary tract symptoms; M19.90 Unspecified osteoarthritis, unspecified site; K31.84 Gastroparesis; E11.43 Type 2 diabetes mellitus with diabetic autonomic (poly)neuropathy; G89.4 Chronic pain syndrome; E78.5 Hyperlipidemia, unspecified; Z87.891 Personal history of nicotine dependence; Z79.02 Long term (current) use of antithrombotics/antiplatelets; M54.5 Low back pain; I25.2 Old myocardial infarction; I12.9 Hypertensive chronic kidney disease with stage 1 through stage 4 chronic kidney disease, or unspecified chronic kidney disease; N18.3 Chronic kidney disease, stage 3 (moderate); E11.22 Type 2 diabetes mellitus with diabetic chronic kidney disease; E66.9 Obesity, unspecified; Z68.28 Body mass index [BMI] 28.0-28.9, adult; R19.7 Diarrhea, unspecified; R79.89 Other specified abnormal findings of blood chemistry
CPT/HCPCS: 36415; 70450; 71045; 80048; 80053; 80307; 80320; 81001; 82274; 82962; 83605; 83690; 83735; 83880; 84443; 84484; 85025; 85610; 87040; 87493; 87640; 93005; 94762; 97110; 97162; 97166; 97530; 97535; 99285; J7030; J7040; J7050; A4216; G0480; J2405